=== PATIENT | female | born 1990 | race Caucasian/White ===

== ENCOUNTER 2023-10-29 16:11 | Emergency (ER) | payer OTHER, SELFPAY ==
[2023-10-29 16:30] VITALS: BP 122/80; PULSE 96; RESP 20; TEMP 37.1; O2SAT 97; BMI 41.2
--- NOTE | 2023-10-29 16:40 | ED.URI1 ---
HPI - URI/Sore Throat General Chief Complaint: Upper Respiratory Infection Stated Complaint: FLU Time Seen by Provider: 10/29/23 16:29 Source: patient History of Present Illness HPI Narrative: 33-year-old female presents for cough and congestion. Her symptoms started ninety minutes ago. She states that several people where she works have Covid. She vomited. She's had no productive cough or fever. Related Data Home Medications Medication Instructions Recorded Confirmed buspirone 10 mg tablet 10 mg PO BID 10/29/23 10/29/23 fluoxetine 40 mg capsule 40 mg PO DAILY 10/29/23 10/29/23 lisinopril 20 mg tablet 20 mg PO DAILY 10/29/23 10/29/23 meloxicam 15 mg tablet 15 mg PO DAILY 10/29/23 10/29/23 paliperidone palmitate 234 mg/1.5 234 mg IM .monthly 10/29/23 10/29/23 mL intramuscular syringe (Invega Sustenna) propranolol 60 mg capsule,24 60 mg PO DAILY 10/29/23 10/29/23 hr,extended release Allergies Allergy/AdvReac Type Severity Reaction Status Date / Time hydroxyzine AdvReac Drowsy Verified 10/29/23 16:27 Review of Systems ROS Narrative A ten point review of systems is negative except as noted above. Exam Narrative Exam Narrative: Nurses note and vital signs reviewed and patient is not hypoxic. General: The patient appears well and in no apparent distress. Patient is resting comfortably on cart. Skin: Warm, dry, no pallor noted. There is no rash noted. Head: Normocephalic, atraumatic Eye: Normal conjunctiva, no drainage Ears, Nose, Mouth, and Throat: oral mucosa is moist. Nares patent. Cardiovascular: Regular Rate and Rhythm Respiratory: Patient is in no distress, no accessory muscle use, lungs are clear to auscultation, no wheezing, rales or rhonchi Back: non-tender GI: off and nontender Musculoskeletal: no joint swelling Neurological: A&O, normal speech Psychiatric: Cooperative Constitutional Vital Signs, click to edit/add: Last Vital Signs Temp 98.7 F 10/29/23 16:30 Pulse 96 H 10/29/23 16:30 Resp 20 10/29/23 16:30 BP 122/80 10/29/23 16:30 Pulse Ox 97 10/29/23 16:30 O2 Del Method Room Air 10/29/23 16:30 Course Vital Signs Vital signs: Vital Signs Temperature 98.7 F 10/29/23 16:30 Pulse Rate 96 H 10/29/23 16:30 Respiratory Rate 20 10/29/23 16:30 Blood Pressure 122/80 10/29/23 16:30 Pulse Oximetry 97 10/29/23 16:30 Oxygen Delivery Method Room Air 10/29/23 16:30 Temperature 98.7 F 10/29/23 16:30 Pulse Rate 96 H 10/29/23 16:30 Respiratory Rate 20 10/29/23 16:30 Blood Pressure 122/80 10/29/23 16:30 Pulse Oximetry 97 10/29/23 16:30 Oxygen Delivery Method Room Air 10/29/23 16:30 MDM - URI/Sore Throat MDM Narrative Medical decision making narrative: Covid and influenza are negative. treatment diagnosis and follow-up were discussed with the patient. Differential Diagnosis Differential diagnosis: Likely upper respiratory infection and other (Covid, influenza) Lab Data Attestation: I reviewed the patient's lab results. Labs: Lab Results 10/29/23 Range/Units 16:32 SARS-CoV-2 (PCR) Negative (NEGATIVE) Influenza Type A Ag Negative Influenza Type B Ag Negative Discharge Plan Discharge Chief Complaint: Upper Respiratory Infection Clinical Impression: Upper respiratory infection Patient Disposition: Home, Self-Care Time of Disposition Decision: 17:25 Condition: Good Mode of Transportation: Private Vehicle Prescriptions / Home Meds: No Action buspirone 10 mg tablet 10 mg PO BID fluoxetine 40 mg capsule 40 mg PO DAILY lisinopril 20 mg tablet 20 mg PO DAILY meloxicam 15 mg tablet 15 mg PO DAILY Invega Sustenna 234 mg/1.5 mL syringe 234 mg IM .monthly propranolol 60 mg capsule,extended release 24 hr 60 mg PO DAILY Instructions: Upper Respiratory Infection (ED) Stand Alone Forms: Portal Instructions Referrals: MONIKA MALONE [Primary Care Provider] - 1 week
[2023-10-29] MEDS: ONDANSETRON 4 MG RAPDIS TABLET SL (16:54)
[2023-10-29 17:12] LABS: Influenza Virus A Antigen Negative; Influenza Virus B Antigen Negative; Internal Control Within Normal Limits; SARS-CoV-2 Ag NEGATIVE (NEGATIVE)
[2023-10-30 15:45] LABS: SARS-CoV-2 NAA NOT DETECTED (NOT DETECTE)
== END 2023-10-29 17:39 | disposition home or self-care (01) ==
PROVIDERS: Emergency Provider Emergency Medicine; PCP Family Medicine
DX: J06.9 Acute upper respiratory infection, unspecified (principal); Z20.822 Contact with and (suspected) exposure to COVID-19
CPT/HCPCS: 87635; 87804; 87811; 99284

== ENCOUNTER 2025-06-12 06:42 | Emergency (ER) | payer OTHER, SELFPAY ==
[2025-06-12 06:47] VITALS: BP 135/85; PULSE 63; TEMP 36.7; O2SAT 99; BMI 43.3
--- OUTSIDE RECORDS SUMMARY | 2025-06-12 06:57 | XMS_ITS | CCD ---
Author Organization [facility] Care Team Providers Care Preschool Substitute Teacher Name Role Phone Mare Rosales Unavailable HOUSE, DR FRANK Attending Unavailable HOUSE, DR FRANK Consulting Unavailable HOUSE, DR FRANK Primary Care Unavailable HOUSE, DR FRANK Admitting Unavailable DEB SOLER Referring Unavailable MOUSTAPHA MALONE Primary Care Unavailable JULIANNA OSEGUERA Attending Unavailable DEB SOLER Referring Unavailable MOUSTAPHA MALONE Primary Care Unavailable DO Moustapha Malone Primary Care Provider MD Jaxon Mercado Attending Provider [phone] NO FAMILY, PHYSICIAN Primary Care Provider Unava ilable MD Lucas Nuñez Admit Provider MD Lucas Nuñez Attending Provider [phone] [place] Moustapha THURSTON Primary Care Provider No Pcp, No Pcp Primary Care Provider Unavailabl e Moustapha Malone DO Primary Care Provider NO FAMILY, PHYSICIAN Primary Care Unavailable Lucas Nuñez Attending Unavailable Lucas Nuñez Admitting Unavailable Moustapha Malone Primary Care Unavailable Jaxon Mercado Attending Unavailab le Jaxon Mercado Admitting Unavailab le Moustapha Malone DO Primary Care Provider DEB SOLER Attending Unavailable MOUSTAPHA MALONE Referring Unavailable MOUSTAPHA MALONE Primary Care Unavailable RANDA BISHOP Attending Unavailable MOUSTAPHA MALONE Referring Unavailable MOUSTAPHA MALONE Primary Care Unavailable DEB SOLER Attending Unavailable NO PCP, NO PCP Primary Care Unavailable DEB SOLER Attending Unavailable NO PCP, NO PCP Primary Care Unavailable DEB SOLER Attending Unavailable HOUSE, MOUSTAPHA P Referring Unavailable NO PCP, NO PCP Primary Care Unavailable KARLENE, DEB L Attending Unavailable HOUSE, MOUSTAPHA P Referring Unavailable HOUSE, MOUSTAPHA P Primary Care Unavailable KARLENE, DEB L Attending Unavailable HOUSE, MOUSTAPHA P Referring Unavailable HOUSE, MOUSTAPHA P Primary Care Unavailable KARLENE, DEB L Attending Unavailable HOUSE, MOUSTAPHA P Primary Care Unavailable Rupal Mayo MD Primary Care Provider Narda MAJOR GIFTS OFFICER, John Unavailable NO PCP, NO PCP Primary Care Unavailable RANI, RICH Wright Attending Unavailab NANCY Easley Admitting Unavailable NEVERANTONIOKAAdrien, RICH P Attending Unavailab le NEVERAUSKAS, RICH P Referring Unavailab le NO PCP, NO PCP Primary Care Unavailable HOUSE, MOUSTAPHA P Referring Unavailable NO PCP, NO PCP Primary Care Unavailable HOUSE, MOUSTAPHA P Primary Care Unavailable AZIZA MEJIA Attending Unavailable HOUSE, MOUSTAPHA P Primary Care Unavailable CARRIE LINDSEY Attending Unavailable HOUSE, DO MOUSTAPHA P Attending Unavailable HOUSE, MOUSTAPHA P Primary Care Unavailable HOUSE, DO MOUSTAPHA P Attending Unavailable HOUSE, MOUSTAPHA P Primary Care Unavailable Nicola PMHNP-, Leah Unavailable LEAH RICKETTS Attending Unavailable MAJORS, JOHN Attending Unavailable LEAH RICKETTS Attending Unavailable MAJORS, JOHN Referring Unavailable MAJORS, JOHN Attending Unavailable Allergies Allergy Classification Reported Allergen(s) Allergy Type Date of Onset Reaction(s) Facility (18 sources) Latex; Translations: [LATEX] Propensity to adverse reactions 0 rash/swelling, Rash, rash/swelling [facility] Repository (1 source) Latex Drug allergy (disorder) 4 [facility] Repository (20 sources) hydrOXYzine; Translations: [HYDROXYZINE] Drug Allergy 0 Drowsy [facility] Repository (1 source) Latex Drug allergy (disorder) 4 [facility] Repository (11 sources) Latex Propensity to adverse reactions 0 [facility] (1 source) Latex; Translations: [Latex Allergy] Propensity to adverse reactions (disorder) [facility] Repository Medications Current Medications Medication Drug Class(es) Dates Sig (Normalized) Sig (Original) busPIRone hydrochloride 15 mg oral tablet (20 sources) Start: 08-11-2021 End: 04-27-2025 take 15 mg by mouth three times daily Buspirone Active 15 MG PO Three times daily 42 14 August 11, 2021 12:00am Start: 08-08-2021 End: 08-11-2021 take 15 mg by mouth twice daily Buspirone Discontinued 15 MG PO Twice daily August 08, 2021 8:01pm August 11, 2021 1:52pm Start: 05-14-2021 End: 08-08-2021 take 10 mg by mouth twice daily Buspirone Discontinued 10 MG PO Twice daily 60 May 14, 2021 12:00am August 08, 2021 8:01pm Start: 05-11-2021 End: 05-14-2021 take 10 mg by mouth once daily Buspirone Discontinued 10 MG PO Daily May 11, 2021 12:00am May 14, 2021 11:11am Start: 07-06-2020 End: 05-11-2021 take 5 mg by mouth three times daily Buspirone Discontinued 5 MG PO Three times daily 90 July 06, 2020 12:00am May 11, 2021 8:19am busPIRone HCl Ac tive cariprazine 3 mg oral capsule (2 sources) Atypical Antipsychotic Start: 08-15-2024 take 1 capsule by mouth once daily Cariprazine (Vraylar) 3 mg capsule Active 3 MG PO Daily August 15, 2024 12:00am Start: 08-11-2024 End: 08-15-2024 take 1 capsule by mouth once daily Cariprazine (Vraylar) 1.5 mg capsule Discontinued 1.5 MG PO Daily August 11, 2024 12:00am August 15, 2024 12:02pm doxepin hydrochloride 25 mg oral capsule (8 sources) Tricyclic Antidepressant Start: 08-15-2024 take 25 mg by mouth once daily at bedtime Doxepin Active 25 MG PO Daily at bedtime August 15, 2024 12:00am Start: 08-11-2024 take 10 mg by mouth three times daily Doxepin Active 10 MG PO Three times daily August 11, 2024 12:00am Start: 07-02-2020 End: 05-11-2021 take 10 mg by mouth three times daily Doxepin Discontinued 10 MG PO Three times daily July 02, 2020 12:00am May 11, 2021 8:20am escitalopram 10 mg oral tablet (3 sources) Serotonin Reuptake Inhibitor Start: 05-25-2025 End: 06-24-2025 take 1 tablet by mouth once daily escitalopram (Lexapro) 10 MG tablet Indications: ZAFAR (generalized anxiety disorder) , PTSD (post-traumatic stress disorder) , Mild episode of recurrent major depressive disorder Take 1 tablet (10 mg) by mouth Daily 30 tablet 1 05/25/2025 06/24/2025 Active fexofenadine hydrochloride 180 mg oral tablet (8 sources) Histamine-1 Receptor Antagonist take 1 tablet by mouth once daily fexofenadine (Nancy) 180 MG tablet Take 180 mg by mouth Daily Active FLUoxetine 40 mg oral capsule (20 sources) Serotonin Reuptake Inhibitor Start: 05-07-2024 End: 04-27-2025 take 1 capsule by mouth in the morning FLUoxetine (PROzac) 40 MG capsule Take 40 mg by mouth in the morning and 40 mg in the evening. 05/07/2024 04/27/2025 Discontinued Start: 05-14-2021 take 80 mg by mouth once daily Fluoxetine Active 80 MG PO Daily 60 May 14, 2021 12:00am Start: 07-06-2020 End: 05-14-2021 take 60 mg by mouth once daily Fluoxetine Discontinued 60 MG PO Daily 90 July 06, 2020 12:00am May 14, 2021 11:11am Start: 07-02-2020 End: 07-06-2020 take 40 mg by mouth once daily Fluoxetine Discontinued 40 MG PO Daily July 02, 2020 12:00am July 06, 2020 12:07pm PROzac Active fluticasone propionate 0.05 mg/actuat metered dose nasal spray (2 sources) Corticosteroid Start: 06-24-2022 take 1 spray(s) nasal route once daily Flonase Allergy Relief 50 MCG/ACT 1 spray in each nostril Nasally Once a day for 14 day(s) Jun, Active Flonase Active meloxicam 15 mg oral tablet (20 sources) Nonsteroidal Anti-inflammatory Drug Start: 05-07-2024 End: 04-27-2025 meloxicam (Mobic) 15 MG tablet 05/07/2024 04/27/2025 Discontinued (Therapy completed) Start: 07-02-2020 End: 05-11-2021 take 15 mg by mouth once daily Meloxicam Active 15 MG PO Daily May 11, 2021 12:00am Mobic Active multivit with calcium,iron,m in (MULTIPLE VITAMIN, WOMENS ORAL) (12 sources) multivit with ca lcium,iron,min (MULTIPLE VITAMIN, WOMENS ORAL) Take by mouth. Active multivit with ca lcium,iron,min (MULTIPLE VITAMIN, WOMENS ORAL) Take by mouth. 0 Active OLANZapine 5 mg oral tablet (1 source) Atypical Antipsychotic Start: 08-15-2024 take 5 mg by mouth every six hours Olanzapine Active 5 MG PO Q6H 30 August 15, 2024 12:00am ondansetron 4 mg oral tablet (1 source) Serotonin-3 Receptor Antagonist Start: 06-24-2022 take 1 tablet by mouth every eight hours as needed Ondansetron HCl 4 MG 1 tablet Orally every 8 hours as needed for 3 days Jun, Active 1.5 ml paliperidone palmitate 156 mg/ml prefilled syringe (12 sources) Atypical Antipsychotic Start: 08-15-2024 Paliperidone Palmitate (Invega Sustenna) 234 mg/1.5 mL Syringe Active 234 MG IM Q21D 0 August 15, 2024 12:00am Start: 08-12-2024 End: 08-15-2024 Paliperidone Palmitate (Inve ga Sustenna) 234 mg/1.5 mL syringe Discontinued 234 MG IM Q30D August 12, 2024 12:00am August 15, 2024 12:02pm Start: 08-11-2024 End: 08-12-2024 Paliperidone Palm (3 Month) (Invega Trinza) 273 mg/0.88 mL syringe Discontinued 273 MG IM EVERY 3 MONTHS August 11, 2024 12:00am August 12, 2024 12:21pm Start: 03-10-2024 inject 2.63 mL by in tramuscular injection every three months INVEGA TRINZA 819 mg/2.63 mL syringe injection INJECT 2.63 mls INTRAMUSCULARLY once EVERY 3 (THREE) months 03/10/2024 Active Start: 08-15-2021 End: 03-03-2024 inject 1.5 mL by intramuscular injection every month INVEGA SUSTENNA 234 mg/1.5 mL syringe INJECT 1.5 ml INTRAMUSCULARLY once a month 08/15/2021 03/03/2024 Discontinued Start: 08-08-2021 End: 08-11-2024 Paliperidone Palmitate (Toñobenji mejía Augustine) 39 mg/0.25 mL Syringe Discontinued 234 MG IM EVERY 4 WEEKS August 08, 2021 12:00am August 11, 2024 6:29pm Start: 05-14-2021 End: 08-08-2021 take 3 mg by mouth once daily at bedtime Paliperidone Discontinued 3 MG PO Daily at bedtime May 14, 2021 12:00am August 08, 2021 9:10pm 24 hr propranolol hydrochloride 80 mg extended release oral capsule (20 sources) beta-Adrenergic Frantz Start: 05-05-2025 End: 08-03-2025 take 1 capsule by mouth once daily propranolol LA (Inderal LA) 80 MG 24 hr capsule Indications: Other migraine without status migrainosus, not intractable Take 1 capsule (80 mg) by mouth Daily Do not crush, chew, or split. 30 capsule 2 05/05/2025 08/03/2025 Active Start: 04-07-2025 End: 04-07-2026 take 1 capsule by mouth once daily propranolol LA (Inderal LA) 60 MG 24 hr capsule Indications: Other migraine without status migrainosus, not intractable Take 1 capsule (60 mg) by mouth Daily Do not crush, chew, or split. 90 capsule 3 04/07/2025 05/05/2025 Discontinued (Dose adjustment) Start: 05-07-2024 End: 04-07-2025 propranolol LA (Inderal LA) 60 MG 24 hr capsule 05/07/2024 04/07/2025 Discontinued (Reorder) Start: 07-02-2020 take 1 capsule by mo uth once daily propranolol LA (INDERAL LA) 60 mg 24 hr capsule TAKE 1 CAPSULE BY MOUTH DAILY 05/07/2024 Active take 1 tablet by bruna th in the morning propranoloL (INDERAL) 60 mg tablet Take 1 tablet (60 mg total) by mouth in the morning. Active Inderal Active sertraline 25 mg oral tablet (7 sources) Serotonin Reuptake Inhibitor Start: 04-27-2025 End: 05-25-2025 take 1 tablet by mouth once daily, then take 2 tablets by mouth once daily sertraline (Zoloft) 25 MG tablet Indications: ZAFAR (generalized anxiety disorder) Take 1 tablet (25 mg) by mouth Daily for 7 days, THEN 2 tablets (50 mg) Daily for 21 days. 49 tablet 04/27/2025 05/25/2025 Discontinued traZODone hydrochloride 50 mg oral tablet (3 sources) Serotonin Reuptake Inhibitor Start: 08-15-2024 take 50 mg by mouth once daily at bedtime Trazodone Active 50 MG PO Daily at bedtime August 15, 2024 12:00am Start: 05-14-2021 End: 08-08-2021 take 50 mg by mouth once daily at bedtime Trazodone Discontinued 50 MG PO Daily at bedtime May 14, 2021 12:00am August 08, 2021 2:48pm Start: 07-02-2020 End: 05-11-2021 take 100 mg by mouth at bedtime Trazodone Discontinued 100 MG PO Bedtime July 02, 2020 12:00am May 11, 2021 8:22am triamcinolone acetonide 1 mg/ml topical cream (2 sources) Corticosteroid Start: 05-05-2025 End: 05-12-2025 triamcinolone (Kenalog) 0.1 % cream Indications: Dermatitis Apply topically in the morning and before bedtime. Do all this for 7 days. 45 g 05/05/2025 05/12/2025 Active Completed/Discontinued Medications Medication Drug Class(es) Dates Sig (Normalized) Sig (Original) ARIPiprazole 5 mg oral tablet (1 source) Atypical Antipsychotic Start: 07-02-2020 End: 05-11-2021 take 5 mg by mouth at bedtime Aripiprazole Discontinued 5 MG PO Bedtime July 02, 2020 12:00am May 11, 2021 8:18am brexpiprazole 0.5 mg oral tablet (3 sources) Atypical Antipsychotic End: 03-03-2024 take 1 tablet by mouth in the morning brexpiprazole (REXULTI) 0.5 mg tablet Take 1 tablet (0.5 mg total) by mouth in the morning. 03/03/2024 Discontinued Rexulti Active buPROPion hydrochloride 100 mg oral tablet (3 sources) Aminoketone End: 03-03-2024 take 1 tablet by mouth in the morning buPROPion (WELLBUTRIN) 100 mg tablet Take 1 tablet (100 mg total) by mouth in the morning. 03/03/2024 Discontinued buPROPion HCl Ac tive etonogestrel 68 mg drug implant (9 sources) Progestin Start: 03-25-2024 End: 03-25-2024 etonogestreL (NEXPLANON) implant 68 mg Start: 03-25-2024 End: 03-25-2024 68 mg, subdermal, Once, On T ue 03/25/24 at 1530, For 1 dose, HAZARDOUS - Handle with care, Has patient consent been obtained? Yes, Indication: Prevention of Unintended etonogestreL (NE XPLANON) 68 mg implant 1 each (68 mg total) by subdermal route once. Active lamoTRIgine 25 mg oral tablet (1 source) Mood Stabilizer, Anti-epileptic Agent Start: 05-11-2021 End: 05-14-2021 take 37.5 mg by mouth once daily Lamotrigine Discontinued 37.5 MG PO Daily May 11, 2021 12:00am May 14, 2021 11:11am lisinopril 20 mg oral tablet (1 source) Angiotensin Converting Enzyme Inhibitor Start: 05-11-2021 End: 08-08-2021 take 20 mg by mouth once daily Lisinopril Discontinued 20 MG PO Daily May 11, 2021 12:00am August 08, 2021 2:47pm 1 ml medroxyPROGESTERone acetate 150 mg/ml injection (8 sources) Progestin Start: 01-09-2024 End: 01-09-2024 medroxyPROGESTERone (DEPO-PROVERA) injection 150 mg Start: 01-09-2024 End: 01-09-2024 medroxyPROGESTERone (DEPO-UT OVERA) injection 150 mg End: 04-15-2024 medroxyPROGESTERone (DEPO-UT OVERA) 150 mg/mL injection Inject 1 mL (150 mg total) into the appropriate muscle every 3 (three) months. 04/15/2024 Discontinued prazosin 1 mg oral capsule (1 source) alpha-Adrenergic Frantz Start: 07-06-2020 End: 05-11-2021 take 1 mg by mouth once daily at bedtime Prazosin Discontinued 1 MG PO Daily at bedtime July 06, 2020 12:00am May 11, 2021 8:24am QUEtiapine 25 mg oral tablet (3 sources) Atypical Antipsychotic Start: 08-11-2021 End: 08-11-2024 take 75 mg by mouth once daily at bedtime Quetiapine Discontinued 75 MG PO Daily at bedtime 45 August 11, 2021 12:00am August 11, 2024 6:28pm Start: 08-08-2021 End: 08-11-2024 take 25 mg by mouth once daily in the morning Quetiapine Discontinued 25 MG PO Every morning August 08, 2021 12:00am August 11, 2024 6:28pm Start: 08-08-2021 End: 08-11-2021 take 50 mg by mouth once daily at bedtime Quetiapine Discontinued 50 MG PO Daily at bedtime August 08, 2021 12:00am August 11, 2021 10:15am sulfamethoxazole 800 mg / trimethoprim 160 mg oral tablet (1 source) Dihydrofolate Reductase Inhibitor Antibacterial, Sulfonamide Antimicrobial Start: 05-14-2021 End: 08-08-2021 take 1 tablet by mouth twice daily Sulfamethoxazole-Trimethoprim Discontinued 1 TAB PO Twice daily 12 May 14, 2021 12:00am August 08, 2021 2:47pm Problems Active Problems Problem Classification Problem Date Documented Date Episodic/Chronic Administrative/socia l admission (2 sources) First encounter by subject; Translations: [Persons encountering health services in other specified circumstances] 04-07-2025 Episodic Allergic reactions (2 sources) Inflammatory dermatosis; Translations: [Dermatitis, unspecified] 05-05-2025 Episodic Anxiety disorders (20 sources) Anxiety; Translations: [Anxiety disorder, unspecified] Onset: 04-27-2025 05-03-2024 Chronic Contraceptive and procreative management (12 sources) Patient encounter status; Translations: [Encounter for initial prescription of implantable subdermal contraceptive] Onset: 03-25-2024 03-25-2024 Episodic Essential hypertension (4 sources) Essential (primary) hypertension; Translations: [ESSENTIAL PRIMARY HYPERTENSION] Onset: 07-03-2022 Chronic Genitourinary symptoms and ill-defined conditions (1 source) Urinary frequency Onset: 04-04-2025 Episodic Headache; including migraine (16 sources) Migraine; Translations: [Migraine, unspecified, not intractable, without status migrainosus] Onset: 01-09-2024 01-09-2024 Chronic Immunizations and screening for infectious disease (2 sources) Encounter for screening for infections with a predominantly sexual mode of transmission; Translations: [Patient encounter status] Onset: 03-03-2024 03-03-2024 Episodic Mood disorders (20 sources) Major depressive disorder; Translations: [Major depressive disorder, single episode, unspecified] Onset: 08-11-2024 08-08-2021 Chronic Nutritional deficiencies (4 sources) Vitamin D deficiency; Translations: [Vitamin D deficiency, unspecified] 04-07-2025 Chronic Osteoarthritis (2 sources) Bilateral osteoarthritis of knees; Translations: [Bilateral primary osteoarthritis of knee] 04-07-2025 Chronic Other connective tissue disease (1 source) Myalgia, other site; Translations: [Myalgia, other site] Onset: 04-04-2025 Episodic Other nutritional; endocrine; and metabolic disorders (2 sources) Body mass index (BMI) 40.0-44.9, adult; Translations: [Body mass index (BMI) 40.0-44.9, adult] Onset: 04-01-2024 Chronic Other nutritional; endocrine; and metabolic disorders (20 sources) Body mass index 40+ - severely obese; Translations: [Body mass index (BMI) 40.0-44.9, adult] Onset: 09-27-2022 03-03-2024 Chronic Other nutritional; endocrine; and metabolic disorders (9 sources) Severe obesity; Translations: [Morbid (severe) obesity due to excess calories] Onset: 05-19-2024 04-21-2024 Chronic Other nutritional; endocrine; and metabolic disorders (1 source) Morbid (severe) obesity due to excess calories; Translations: [Morbid (severe) obesity due to excess calories] Onset: 05-19-2024 Chronic Other nutritional; endocrine; and metabolic disorders (1 source) Body mass index (BMI) 45.0-49.9, adult; Translations: [Body mass index (BMI) 45.0-49.9, adult] Onset: 05-19-2024 Chronic Other nutritional; endocrine; and metabolic disorders (4 sources) Obesity caused by energy imbalance; Translations: [Morbid (severe) obesity due to excess calories] 04-07-2025 Chronic Otitis media and related conditions (2 sources) Otitis media; Translations: [Unspecified nonsuppurative otitis media, bilateral] 04-07-2025 Episodic Personality disorders (12 sources) Borderline personality disorder; Translations: [Borderline personality disorder] Onset: 09-07-2021 09-07-2021 Chronic Schizophrenia and other psychotic disorders (3 sources) Schizoaffective disorder; Translations: [Schizoaffective disorder, unspecified] Onset: 08-11-2024 08-09-2021 Chronic Screening and history of mental health and substance abuse codes (13 sources) Standardized adult depression screening tool completed ; Translations: [Encounter for screening for depression] Onset: 04-27-2025 01-09-2024 Episodic Suicide and intentional self-inflicted injury (1 source) Suicidal thoughts; Translations: [Suicidal ideations] 08-08-2021 Episodic Unclassified (1 source) Unclassified (1 source) MNT - Individual Onset: 04-01-2024 Unclassified (1 source) Procedure Onset: 03-17-2025 Unclassified (1 source) Suicidal Onset: 08-11-2024 Unclassified (1 source) Supraventricular tachycardia, unspecified; Translations: [Supraventricular tachycardia, unspecified] Onset: 05-10-2024 Unclassified (1 source) Generalized Body Aches Onset: 05-02-2024 Unclassified (1 source) Body Aches Onset: 05-02-2024 Past or Other Problems Problem Classification Problem Date Documented Da te Episodic/Chronic Cardiac dysrhythmias (6 sources) Tachycardia; Translations: [Tachycardia, unspecified] Onset: 05-02-2024 05-03-2024 Episodic Malaise and fatigue (1 source) Fatigue Onset: 05-02-2024 Episodic Mood disorders (20 sources) Mood disorders Onset: 01-09-2024 Resolved: 04-27-2025 01-09-2024 Nausea and vomiting (1 source) Nausea Onset: 05-02-2024 Episodic Other nutritional; endocrine; and metabolic disorders (2 sources) Weight loss Onset: 03-24-2024 Episodic Unclassified (1 source) Contact with and (suspected) exposure to covid-19 Z20.822 Onset: 06-24-2022 Resolved: 06-24-2022 Unclassified (12 sources) Onset: 01-09-2024 01-09-2024 Urinary tract infections (6 sources) Pyelonephritis; Translations: [Tubulo-interstit ial nephritis, not specified as acute or chronic] Onset: 05-02-2024 05-02-2024 Episodic Viral infection (1 source) COVID-19 Onset: 06-24-2022 Resolved: 06-24-2022 Results Test Name Value Interpretation Reference Range Facility Release of Informationon Release of Information [id number]. 00OTGTIFF [facility] Outside Recordson 04-08-2025 Outside Records [id number] [facility] WITH [facility]O DIFFERENTIALon 04-04-2025 BASOPHILS ABSOLUTE COUNT (10*3/UL) BY AUTOMATED COUNT 0.1 10*3/uL Normal 0.0-0.2 [facility] Comment on above: Performed By: #### 1 988-5, 2639-3, 6, CBCA, CMP, 23083-4 #### [facility] ([id number]) [address] [place] [address] 64336 BASOPHILS RELATIVE PERCENT BY AUTOMATED COUNT 0.8 % Normal [facility] Comment on above: Performed By: #### 1 988-5, 2639-3, 2157-04, CBCA, CMP, 59638-4 #### [facility] ([id number]) [address] [place] [address] 74397 CELLAVISION DIFFERENTIAL TYPE AUTOMATED DIFFERENTIAL Normal [facility] Comment on above: Performed By: #### 1 988-5, 2639-3, 6, CBCA, CMP, 90531-9 #### [facility] ([id number]) [address] [place] [address] 24388 Eosinophils (Bld) [#/Vol] 0.5 10*3/uL High 0.0-0.4 [facility] Comment on above: Performed By: #### 1 988-5, 2639-3, 2157-6, CBCA, CMP, 13986-3 #### [facility] ([id number]) [address] [place] [address] 11815 EOSINOPHILS RELATIVE PERCENT BY AUTOMATED COUNT 5.0 % Normal [facility] Comment on above: Performed By: #### 1 988-5, 2639-3, 6, CBCA, CMP, 73556-6 #### [facility] ([id number]) [address] [place] [address] 01227 Erythrocyte distribution width (RBC) [Ratio] 13.1 % Normal 11.5-15 [facility] Comment on above: Performed By: #### 1 988-5, 263-3, 2157-04, CBCA, CMP, 99243-4 #### [facility] ([id number]) [address] [place], [place] [id number] Hematocrit (Bld) [Volume fraction] 38.0 % Normal 35-47 [facility] Comment on above: Performed By: #### 1 988-5, 2639-3, 2157-04, CBCA, CMP, 72064-4 #### [facility] ([id number]) [address] [place], [place] [address] Hemoglobin (Bld) [Mass/Vol] 13.3 g/dL Normal 11.7-15.5 [facility] Comment on above: Performed By: #### 1 988-5, 2639-3, 6, CBCA, CMP, 15223-1 #### [facility] ([id number]) [address] [place] [address] 15240 LYMPHOCYTES ABSOLUTE COUNT (10*3/UL) BY AUTOMATED COUNT 2.4 10*3/uL Normal 1.0-3.5 [facility] Comment on above: Performed By: #### 1 988-5, 2639-3, 6, CBCA, CMP, 13802-0 #### [facility] ([id number]) [address] [place] [address] 58982 LYMPHOCYTES RELATIVE PERCENT BY AUTOMATED COUNT 23.8 % Normal [facility] Comment on above: Performed By: #### 1 988-5, 2639-3, 6, CBCA, CMP, 28654-8 #### [facility] ([id number]) [address] [place] [address] 30199 MCH (RBC) [Entitic mass] 31.9 pg Normal 27-34 [facility] Comment on above: Performed By: #### 1 988-5, 2639-3, 2157-04, CBCA, CMP, 87394-3 #### [facility] ([id number]) [address] [place] [address] 12252 MCHC (RBC) [Mass/Vol] 34.9 g/dL Normal 32-36 [facility] Comment on above: Performed By: #### 1 988-5, 2639-3, 2157-04, CBCA, CMP, 43415-1 #### [facility] ([id number]) [address] [place] [address] 33580 MCV (RBC) [Entitic vol] 92 fL Normal 80-100 [facility] Comment on above: Performed By: #### 1 988-5, 2639-3, 2157-04, CBCA, CMP, 84892-0 #### [facility] ([id number]) [address] [place] [address] 82547 MONOCYTES ABSOLUTE COUNT (10*3/UL) BY AUTOMATED COUNT 0.7 10*3/uL Normal 0.0-0.9 [facility] Comment on above: Performed By: #### 1 988-5, 2639-3, 6, CBCA, CMP, 36172-2 #### [facility] ([id number]) [address] [place] [address] 17445 MONOCYTES RELATIVE PERCENT BY AUTOMATED COUNT 7.0 % Normal [facility] Comment on above: Performed By: #### 1 988-5, 2639-3, 6, CBCA, CMP, 40669-6 #### [facility] ([id number]) [address] [place] [address] 67506 NEUTROPHILS ABSOLUTE COUNT BY AUTOMATED COUNT 6.3 10*3/uL Normal 1.5-6.6 [facility] Comment on above: Performed By: #### 1 988-5, 2639-3, 6, CBCA, CMP, 23956-6 #### [facility] ([id number]) [address] [place] [address] 43028 NEUTROPHILS RELATIVE PERCENT BY AUTOMATED COUNT 63.4 % Normal [facility] Comment on above: Performed By: #### 1 988-5, 2639-3, 6, CBCA, CMP, 17828-9 #### [facility] ([id number]) [address] [place] [address] 53701 Platelet mean volume (Bld) [Entitic vol] 6.8 fL Low 7-12 [facility] Comment on above: Performed By: #### 1 988-5, 2639-3, 6, CBCA, CMP, 11508-0 #### [facility] ([id number]) [address] [place] [address] 65960 Platelets (Bld) [#/Vol] 375 10*3/uL Normal 150-450 [facility] Comment on above: Performed By: #### 1 988-5, 2639-3, 6, CBCA, CMP, 17096-7 #### [facility] ([id number]) [address] [place] [address] 16141 RBC COUNT 4.16 X10E12/L Normal 3.8-5.2 [facility] Comment on above: Performed By: #### 1 988-5, 2639-3, 2156-6, CBCA, CMP, 44342-2 #### [facility] ([id number]) [address] [place] [address] 71790 WBC (Bld) [#/Vol] 10.0 10*3/uL Normal 4-11 [facility] Comment on above: Performed By: #### 1 988-5, 2639-3, 2156-6, CBCA, CMP, 19610-3 #### [facility] ([id number]) [address] [place] [address] 43531 COMPREHENSIVE METABOLIC PANE Efren 04-04-2025 Albumin [Mass/Vol] 3.8 g/dL Normal 3.2-5.3 [facility] Comment on above: Performed By: #### 1 988-5, 2639-3, 2156-6, CBCA, CMP, 66863-8 #### [facility] ([id number]) [address] [place] [address] 30087 ALP [Catalytic activity/Vol] 85 U/L Normal 39-130 [facility] Comment on above: Performed By: #### 1 988-5, 2639-3, 2156-6, CBCA, CMP, 82304-2 #### [facility] ([id number]) [address] [place] [address] 63469 ALT [Catalytic activity/Vol] 42 U/L High <=31 [facility] Comment on above: Performed By: #### 1 988-5, 2639-3, 2156-6, CBCA, CMP, 90932-6 #### [facility] ([id number]) [address] [place] [address] 08883 Anion gap [Moles/Vol] 5 mmol/L Normal 5-15 [facility] Comment on above: Performed By: #### 1 988-5, 2639-3, 2156-6, CBCA, CMP, 59068-9 #### [facility] ([id number]) [address] [place] [address] 37228 AST [Catalytic activity/Vol] 26 U/L Normal <=41 [facility] Comment on above: Performed By: #### 1 988-5, 2639-3, 6, CBCA, CMP, 77339-6 #### [facility] ([id number]) [address] [place] [address] 51846 Bilirubin [Mass/Vol] 0.3 mg/dL Normal 0.3-1.2 [facility] Comment on above: Performed By: #### 1 988-5, 2639-3, 6, CBCA, CMP, 04779-4 #### [facility] ([id number]) [address] [place] [address] 33059 Calcium [Mass/Vol] 8.9 mg/dL Normal 8.5-10.5 [facility] Comment on above: Performed By: #### 1 988-5, 2639-3, 6, CBCA, CMP, 73671-1 #### [facility] ([id number]) [address] [place] [address] 90163 Chloride [Moles/Vol] 106 mmol/L Normal 98-109 [facility] Comment on above: Performed By: #### 1 988-5, 2639-3, 6, CBCA, CMP, 92089-5 #### [facility] ([id number]) [address] [place] [address] 86855 CO2 [Moles/Vol] 24 mmol/L Normal 22-32 [facility] Comment on above: Performed By: #### 1 988-5, 2639-3, 6, CBCA, CMP, 98601-3 #### [facility] ([id number]) [address] [place] [address] 75568 Creatinine [Mass/Vol] 0.88 mg/dL Normal 0.40-1.00 [facility] Comment on above: Result Comment: METH OD TRACEABLE TO IDMS STANDARD Performed By: #### 1 988-5, 2639-3, 6, CBCA, CMP, 76075-5 #### [facility] ([id number]) [address] [place] [address] 46850 GFR/1.73 sq M.predicted among non-blacks MDRD (S/P/Bld) [Vol rate/Area] 88 mL/min/{1.73_m2} Normal >=60 [facility] Comment on above: Result Comment: eGFR not reported due to non-numeric value for Creatinine. Reported eGFR is based on the CKD-EPI 2020 equation that does not use a race coefficient. Performed By: #### 1 988-5, 2638-, 2157-04, CBCA, CMP, 15936-0 #### [facility] ([id number]) [address] [place] [address] 65340 Glucose [Mass/Vol] 106 mg/dL High 65-99 [facility] Comment on above: Performed By: #### 1 988-5, 2639-01, 2157-04, CBCA, CMP, 06546-5 #### [facility] ([id number]) [address] [place] [address] 28954 Potassium [Moles/Vol] 3.6 mmol/L Normal 3.5-5.0 [facility] Comment on above: Performed By: #### 1 988-5, 263-, 2157-04, CBCA, CMP, 75098-5 #### [facility] ([id number]) [address] [place] [address] 59747 Protein [Mass/Vol] 7.2 g/dL Normal 6.0-8.0 [facility] Comment on above: Performed By: #### 1 988-5, 2639-01, 6, CBCA, CMP, 81980-8 #### [facility] ([id number]) [address] [place] [address] Sodium [Moles/Vol] 135 mmol/L Normal 134-146 [facility] Comment on above: Performed By: #### 1 988-5, 2639-3, 2157-6, CBCA, CMP, 99684-6 #### [facility] ([id number]) [address] [place] [address] Urea nitrogen [Mass/Vol] 8 mg/dL Normal 5-23 [facility] Comment on above: Performed By: #### 1 988-5, 2639-3, 2157-6, CBCA, CMP, 26864-6 #### [facility] ([id number]) [address] [place] [address] CT ABDOMEN AND PELVIS WO CON Ton 04-04-2025 CT ABDOMEN AND PELVIS WO CONT CT ABDOMEN AND PELVIS WO CONT CLINICAL INFORMATION: Acute abdominal pain radiating to back, acute lower abdominal pain. TECHNIQUE: Abdominopelvic CT without contrast. All CT scans at this facility use dose modulation, iterative reconstruction, and/or weight based dosing when appropriate to reduce radiation dose to as low as reasonably achievable. COMPARISON: 05/02/2024. FINDINGS Evaluation for pyelonephritis on unenhanced CT, is limited. LOWER CHEST: Lung bases clear. HEPATOBILIARY: Unenhanced liver and gallbladder are unremarkable. No biliary dilation. PANCREAS: Unenhanced pancreas unremarkable. No pancreatic ductal dilation. SPLEEN: The unenhanced spleen is within normal limits. ADRENAL GLANDS: The unenhanced adrenal glands are within normal limits. KIDNEYS, URETERS, AND BLADDER: Unenhanced kidneys are unremarkable. No collecting system dilation. Urinary bladder is unremarkable. Calcifications within the pelvis are most likely pelvic phleboliths. GI TRACT AND PERITONEUM: Small and large bowel are normal in caliber. Normal appendix. No free air. VASCULATURE: Abdominal aorta is nonaneurysmal. LYMPH NODES: Not enlarged. REPRODUCTIVE ORGANS: Uterus present. No abnormal adnexal mass. No significant free pelvic fluid. MSK: Unremarkable. IMPRESSION: * No acute abdominopelvic process, within the limitations of noncontrast technique. Evaluation for pyelonephritis is limited without contrast. Approved by Resident Viet Jean-Baptiste DO on 04/04/2025 9:19 AM IRich have personally reviewed the image(s) and agree with and/or edited the report Finalized by Rich Bond on 04/04/2025 9:29 AM Normal [facility] LIPASEon 04-04-2025 Lipase [Catalytic activity/Vol] 33 U/L Normal 17-40 [facility] Comment on above: Performed By: #### 1 988-5, 2639-3, 2156-6, CBCA, CMP, 50870-2 #### [facility] ([id number]) [address] [place] [address] 66059 POCT NURSING URINE MACROSCOP IC UAon 04-04-2025 BILIRUBIN TEJA Negative Normal Negative [facility] Comment on above: Performed By: #### 1 988-5, 2639-3, 2156-6, CBCA, CMP, 23280-0 #### [facility] ([id number]) [address] [place] [address] 86702 BLOOD/HGB TEJA Negative Normal Negative [facility] Comment on above: Performed By: #### 1 988-5, 2639-3, 6, CBCA, CMP, 15969-8 #### [facility] ([id number]) [address] [place] [address] 27832 GLUCOSE TEJA Negative Normal Negative [facility] Comment on above: Performed By: #### 1 988-5, 2639-3, 2156-6, CBCA, CMP, 04000-9 #### [facility] ([id number]) [address] [place] [address] 39088 KETONES TEJA Negative Normal Negative [facility] Comment on above: Performed By: #### 1 988-5, 2639-3, 2156-6, CBCA, CMP, 45674-5 #### [facility] ([id number]) [address] [place] [address] 21124 LEUKOCYTE ESTERASE TEJA Negative Normal Negative [facility] Comment on above: Performed By: #### 1 988-5, 2639-3, 2156-6, CBCA, CMP, 02074-2 #### [facility] ([id number]) [address] [place] [address] 26626 NITRITE TEJA Negative Normal Negative [facility] Comment on above: Performed By: #### 1 988-5, 2639-3, 2156-6, CBCA, CMP, 34355-9 #### [facility] ([id number]) [address] [place] [address] 05678 PH TEJA 6.0 Normal 5.0, 6.0, 6.5, 7.0, 7.5, 8.0, 8.5, 5.5 [facility] Comment on above: Performed By: #### 1 988-5, 2639-3, 2156-6, CBCA, CMP, 89487-3 #### [facility] ([id number]) [address] [place] [address] 96020 PROTEIN TEJA Negative Normal Negative [facility] Comment on above: Performed By: #### 1 988-5, 2639-3, 2156-6, CBCA, CMP, 09318-4 #### [facility] ([id number]) [address] [place] [address] 18926 SPECIFIC GRAVITY TEJA 1.010 Normal 1.010, 1.015, 1.020, 1.025 [facility] Comment on above: Performed By: #### 1 988-5, 2639-3, 2156-6, CBCA, CMP, 82924-1 #### [facility] ([id number]) [address] [place] [address], [place] [address] UROBILINOGEN TEJA 0.2 E.U./dL Normal [facility] Comment on above: Performed By: #### 1 988-5, 2639-3, 2157-04, CBCA, CMP, 85727-7 #### [facility] ([id number]) [address] [place] [address] POCT , URINE (NUCG) on 04-04-2025 Beta HCG ( test) Ql (U) Negative Normal Negative [facility] Comment on above: Performed By: #### 1 988-5, 2639-3, 2157-04, CBCA, CMP, 78533-9 #### [facility] ([id number]) [address] [place] [address] Cholesterol [Mass/volume] in Serum or PlasmaOrdered By: Lucas Nuñez on 08-12-2024 Cholesterol [Mass/Vol] 195 mg/dL Normal 140-200 [facility] Comment on above: Chol less than 200 m g/dl low riskChol 201-239 mg/dl borderline riskChol 240 mg/dl and greater high risk Result Comment: Chol less than 200 mg/dl low risk Chol 201-239 mg/dl borderline risk Chol 240 mg/dl and greater high risk Performed By: #### T SH3 wRFLX, LIPID, [id number] #### [facility] [address] Cholesterol in LDL Calc [Mas s/Vol]Ordered By: Lucas Nuñez on 08-12-2024 Cholesterol in LDL [Mass/Vol] 130 mg/dL High 0-100 [facility] Comment on above: LDL ATP III CLASSIFI CATIONLDL less than 100 mg/dL OptimalLDL 100-129 mg/dL Near or above optimalLDL 130-159 mg/dL Borderline highLDL 160-189 mg/dL HighLDL greater than 189 mg/dL Very high Cholesterol in VLDL Calc [Ma ss/Vol]Ordered By: Lucas Nuñez on 08-12-2024 Cholesterol in VLDL [Mass/Vol] 28 mg/dL [facility] ECG 12 lead ECGon 08-12-2024 ECG 12 lead ECG [facility] [address] [place] [id number] Electrocardiograph Report Signed Patient: Aleena Mcguire MR#: [id number] 1 : 1990 Acct:[id number] Age/Sex: 34 / F ADM Date: 08/11/24 Loc: Room: [address] [place] [address] Type: ADM IN Attending Dr: Lucas Nuñez MD Ordering Provider: Lucas Nuñez MD Date of Service: 08/12/2412/05/499 ECG/ECG 12 lead ECG: New admit Copies to: Test Reason : Blood Pressure : */* mmHG Vent. Rate : 81 BPM Atrial Rate : 81 BPM P-R Int : 166 ms QRS Dur : 76 ms QT Int : 376 ms P-R-T Axes : 40 57 47 degrees QTcB Int : 436 ms Normal sinus rhythm Normal ECG When compared with ECG of 08-Aug-2021 15:18, No significant change was found Confirmed by Dia Irvin ([id number]) on 08/13/2024 7:50:28 AM Referred By: Electronically Signed By: Dia Irvin Transcribed By: MUS Signed By Dia Irvin DO 4 0750 Normal [facility] Lipid Panelon 08-12-2024 LDL Cholesterol,Calculate d 130 mg/dL High 0-100 [facility] Comment on above: Result Comment: LDL ATP III CLASSIFICATION LDL less than 100 mg/dL Optimal LDL 100-129 mg/dL Near or above optimal LDL 130-159 mg/dL Borderline high LDL 160-189 mg/dL High LDL greater than 189 mg/dL Very high Performed By: #### T SH3 wRFLX, LIPID, [id number] #### [facility] [address] [place] [id number] [facility] Triglyceride w/Reflex 140 mg/dL Normal 0-149 [facility] Comment on above: Result Comment: TRIG ATP III CLASSIFICATION TRIG less than 150 mg/dL Normal TRIG 150-199 mg/dL Borderline high TRIG 200-500 mg/dL High TRIG greater than 500 mg/dL Very high Standard traceable to the Center for Disease Conrtrol and Prevention (CDC) test method. Performed By: #### T SH3 wRFLX, LIPID, [id number] #### [facility] [address] VLDL CHOLESTEROL 28 mg/dL Normal [facility] Comment on above: Performed By: #### T SH3 wRFLX, LIPID, [id number] #### [facility] [address] [place] [address] Serum or plasma high density lipoprotein (HDL) cholesterol measurementOrdered By: Lucas Nuñez on 08-12-2024 Cholesterol in HDL [Mass/Vol] 37 mg/dL Normal 23-92 [facility] Comment on above: HDL CHOL ATP-III CLA SSIFICATION Cardiovascular RiskHDL > or equal to 60 mg/dL LOWHDL < 40 mg/dL HIGH Result Comment: HDL CHOL ATP-III CLASSIFICATION Cardiovascular Risk HDL > or equal to 60 mg/dL LOW HDL < 40 mg/dL HIGH Performed By: #### T SH3 wRFLX, LIPID, [id number] #### [facility] [address] [place] [address] Serum or plasma total choles terol/high density lipoprotein (HDL) cholesterol mass ratOrdered By: Lucas Nuñez on 08-12-2024 Cholesterol.total/Cho lesterol in HDL [Mass ratio] 5.3 {ratio} Normal <5.0 [facility] Comment on above: Performed By: #### T SH3 wRFLX, LIPID, [id number] #### [facility] [address] [place] [address] Thyroid Stim Hormone w/Rflxo n 08-12-2024 Thyroid Stim Hormone w/Rflx 1.93 u[iU]/mL Normal 0.45-5.33 [facility] Comment on above: Performed By: #### T SH3 wRFLX, LIPID, [id number] #### [facility] [address] [place] [address] Thyrotropin [Units/volume] i n Serum or PlasmaOrdered By: Lucas Nuñez on 08-12-2024 TSH Qn 1.93 m[IU]/L 0.45-5.33 [facility] Triglyceride [Mass/volume] i n Serum or PlasmaOrdered By: Lucas Nuñez on 08-12-2024 Triglyceride [Mass/Vol] 140 mg/dL 0-149 [facility] Comment on above: TRIG ATP III CLASSIF ICATIONTRIG less than 150 mg/dL NormalTRIG 150-199 mg/dL Borderline highTRIG 200-500 mg/dL High TRIG greater than 500 mg/dL Very highStandard traceable to the Center for Disease Conrtrol and Prevention (CDC) test method. Vitamin D 25 Hydroxy Totalon 08-12-2024 Vitamin D 25 Hydroxy Total 38.4 ng/mL Normal 30-100 [facility] Comment on above: Result Comment: ALPHONSO MIN D STATUS 25([place])VITAMIN D RANGE (ng/mL) Deficient <20 Insufficient 20 to <30 Sufficient 30 to 100 Reference: Juanita Montano, Vasquez RENTERIA, et al. Evaluation,treatment, and prevention of vitamin D deficiency; an Endocrine Society clinical practice guideline. JCEM. 2010; 96(7):191-. PERFORMED BY: [place] [address] PATHOLOGIST ELECTRONICS DESIGN ENGINEER LESLI ACOSTA M.D. Performed By: #### T SH3 wRFLX, LIPID, [id number] #### [address] Vitamin D+Metabolites [Mass/ volume] in Serum or PlasmaOrdered By: Lucas Nuñez on 08-12-2024 Vitamin D+Metabolites [Mass/Vol] 38.4 ng/mL 30-100 [facility] Comment on above: VITAMIN D STATUS 25( [place])VITAMIN D RANGE (ng/mL) Deficient <20 Insufficient 20 to <30Sufficient 30 to 100Reference: Juanita Montano, Vasquez RENTERIA, et al. Evaluation,treatment, and prevention of vitamin D deficiency; an Endocrine Society clinical practice guideline. JCEM. 2010; 96(7):191-. ACETAMINOPHENon 08-11-2024 Acetaminophen [Mass/Vol] 3.3 ug/mL Low 10.0-30.0 [facility] Comment on above: Result Comment: Refe rence ranges are for therapeutic limits. Performed By: #### 1 988-5, 2639-3, 6, CBCA, CMP, 19296-0 #### [facility] ([id number]) [address] [place] [address] 26059 CBC AND AUTO DIFFon 08-11-20 24 ABSOLUTE BASOPHIL 0.1 X10E9/L Normal 0.0-0.2 [facility] Comment on above: Performed By: #### 1 988-5, 2639-3, 2157-04, CBCA, CMP, 61957-2 #### [facility] ([id number]) [address] [place] [address] 00269 ABSOLUTE NEUTROPHIL 8.0 X10E9/L High 1.5-6.6 [facility] Comment on above: Performed By: #### 1 988-5, 2638-3, 2157-04, CBCA, CMP, 86347-4 #### [facility] ([id number]) [address] [place] [address] 81177 Basophils/100 WBC (Bld) 0.7 % Normal [facility] Comment on above: Performed By: #### 1 988-5, 2638-3, 2157-04, CBCA, CMP, 34310-0 #### [facility] ([id number]) [address] [place] [address] 00253 Eosinophils (Bld) [#/Vol] 0.6 10*3/uL High 0.0-0.4 [facility] Comment on above: Performed By: #### 1 988-5, 2639-3, 2157-04, CBCA, CMP, 20091-6 #### [facility] ([id number]) [address] [place] [address] 18021 Eosinophils/100 WBC (Bld) 4.8 % Normal [facility] Comment on above: Performed By: #### 1 988-5, 2639-3, 2157-6, CBCA, CMP, #### [facility] ([id number]) [address] [place] [address] 70664 Erythrocyte distribution width (RBC) [Ratio] 14.0 % Normal 11.5-15.0 [facility] Comment on above: Performed By: #### 1 988-5, 2639-3, 6, CBCA, CMP, 80656-2 #### [facility] ([id number]) [address] [place] [address] 72052 Hematocrit (Bld) [Volume fraction] 42.9 % Normal 35-47 [facility] Comment on above: Performed By: #### 1 988-5, 2638-3, 2157-04, CBCA, CMP, 77216-0 #### [facility] ([id number]) [address] [place] [address] 62840 Hemoglobin (Bld) [Mass/Vol] 14.5 g/dL Normal 11.7-15.5 [facility] Comment on above: Performed By: #### 1 988-5, 2638-3, 2157-04, CBCA, CMP, 44915-3 #### [facility] ([id number]) [address] [place] [address] 58456 Lymphocytes (Bld) [#/Vol] 2.9 10*3/uL Normal 1.0-3.5 [facility] Comment on above: Performed By: #### 1 988-5, 2639-3, 2157-04, CBCA, CMP, 32656-9 #### [facility] ([id number]) [address] [place] [address] 01884 Lymphocytes/100 WBC (Bld) 23.2 % Normal [facility] Comment on above: Performed By: #### 1 988-5, 2639-3, 6, CBCA, CMP, 87589-1 #### [facility] ([id number]) [address] [place] [address] 52939 MCH (RBC) [Entitic mass] 30.7 pg Normal 27-34 [facility] Comment on above: Performed By: #### 1 988-5, 2639-3, 6, CBCA, CMP, 20419-7 #### [facility] ([id number]) [address] [place] [address] 59145 MCHC (RBC) [Mass/Vol] 33.8 g/dL Normal 32-36 [facility] Comment on above: Performed By: #### 1 988-5, 263-3, 6, CBCA, CMP, 36541-9 #### [facility] ([id number]) [address] [place] [address] 26267 MCV (RBC) [Entitic vol] 91 fL Normal 80-100 [facility] Comment on above: Performed By: #### 1 988-5, 2639-3, 2157-04, CBCA, CMP, 25532-8 #### [facility] ([id number]) [address] [place] [address] 29600 Monocytes (Bld) [#/Vol] 1.0 10*3/uL High 0-0.9 [facility] Comment on above: Performed By: #### 1 988-5, 2639-3, 2157-04, CBCA, CMP, 70653-2 #### [facility] ([id number]) [address] [place] [address] 54462 Monocytes/100 WBC (Bld) 8.0 % Normal [facility] Comment on above: Performed By: #### 1 988-5, 2639-3, 6, CBCA, CMP, 57143-7 #### [facility] ([id number]) [address] [place] [address] 53756 Neutrophils/100 WBC (Bld) 63.3 % Normal [facility] Comment on above: Performed By: #### 1 988-5, 2639-3, 2156-6, CBCA, CMP, 60674-9 #### [facility] ([id number]) [address] [place] [address] 34439 Platelet mean volume (Bld) [Entitic vol] 7.1 fL Normal 7-12 [facility] Comment on above: Performed By: #### 1 988-5, 2639-3, 2156-6, CBCA, CMP, 80137-5 #### [facility] ([id number]) [address] [place] [address] 71602 Platelets (Bld) [#/Vol] 434 10*3/uL Normal 150-450 [facility] Comment on above: Performed By: #### 1 988-5, 2639-3, 6, CBCA, CMP, 33286-6 #### [facility] ([id number]) [address] [place] [address] 18155 RBC COUNT 4.73 X10E12/L Normal 3.80-5.20 [facility] Comment on above: Performed By: #### 1 988-5, 2639-3, 6, CBCA, CMP, 31559-5 #### [facility] ([id number]) [address] [place] [address] 13178 WBC (Bld) [#/Vol] 12.6 10*3/uL High 4.0-11.0 [facility] Comment on above: Performed By: #### 1 988-5, 2639-3, 6, CBCA, CMP, 61703-1 #### [facility] ([id number]) [address] [place] [address] 00971 COMPREHENSIVE METABOLIC PANE Efren 08-11-2024 Albumin [Mass/Vol] 4.1 g/dL Normal 3.2-5.3 [facility] Comment on above: Performed By: #### 1 988-5, 2639-3, 2156-6, CBCA, CMP, 19174-1 #### [facility] ([id number]) [address] [place] [address] 65960 ALP [Catalytic activity/Vol] 89 U/L Normal 39-130 [facility] Comment on above: Performed By: #### 1 988-5, 2639-3, 6, CBCA, CMP, 43053-3 #### [facility] ([id number]) [address] [place] [address] 54898 ALT [Catalytic activity/Vol] 36 U/L High 0-31 [facility] Comment on above: Performed By: #### 1 988-5, 2639-3, 6, CBCA, CMP, 96211-9 #### [facility] ([id number]) [address] [place] [address] 30810 Anion gap [Moles/Vol] 9 mmol/L Normal 5-15 [facility] Comment on above: Performed By: #### 1 988-5, 2639-3, 6, CBCA, CMP, 62594-6 #### [facility] ([id number]) [address] [place] [address] 63465 AST [Catalytic activity/Vol] 21 U/L Normal 0-41 [facility] Comment on above: Performed By: #### 1 988-5, 2639-3, 6, CBCA, CMP, 85317-0 #### [facility] ([id number]) [address] [place] [address] 01292 Bilirubin [Mass/Vol] 0.6 mg/dL Normal 0.3-1.2 [facility] Comment on above: Performed By: #### 1 988-5, 2639-3, 2157-6, CBCA, CMP, 65771-0 #### [facility] ([id number]) [address] [place] [address] 11817 Calcium [Mass/Vol] 9.7 mg/dL Normal 8.5-10.5 [facility] Comment on above: Performed By: #### 1 988-5, 2639-3, 2156-6, CBCA, CMP, 77052-2 #### [facility] ([id number]) [address] [place] [address] 94358 Chloride [Moles/Vol] 105 mmol/L Normal 98-109 [facility] Comment on above: Performed By: #### 1 988-5, 2639-3, 6, CBCA, CMP, 99604-7 #### [facility] ([id number]) [address] [place] [address] 83890 CO2 [Moles/Vol] 24 mmol/L Normal 22-32 [facility] Comment on above: Performed By: #### 1 988-5, 2639-3, 2156-6, CBCA, CMP, 64387-3 #### [facility] ([id number]) [address] [place] [address] 86744 Creatinine [Mass/Vol] 0.97 mg/dL Normal 0.40-1.00 [facility] Comment on above: Result Comment: METH OD TRACEABLE TO IDMS STANDARD Performed By: #### 1 988-5, 2639-3, 6, CBCA, CMP, 80373-3 #### [facility] ([id number]) [address] [place] [address] 31902 GFR/1.73 sq M.predicted among non-blacks MDRD (S/P/Bld) [Vol rate/Area] 79 mL/min/{1.73_m2} Normal >59 [facility] Comment on above: Result Comment: Reported eGFR is based on the CKD-EPI 2020 equation that does not use a race coefficient. Performed By: #### 1 988-5, 2639-3, 2156-6, CBCA, CMP, 22412-6 #### [facility] ([id number]) [address] [place] [address] 49082 Glucose [Mass/Vol] 92 mg/dL Normal 65-99 [facility] Comment on above: Performed By: #### 1 988-5, 2639-3, 2156-6, CBCA, CMP, 92579-6 #### [facility] ([id number]) [address] [place] [address] 98996 Potassium [Moles/Vol] 4.2 mmol/L Normal 3.5-5.0 [facility] Comment on above: Performed By: #### 1 988-5, 2639-3, 6, CBCA, CMP, 28369-6 #### [facility] ([id number]) [address] [place] [address] 92213 Protein [Mass/Vol] 8.0 g/dL Normal 6.0-8.0 [facility] Comment on above: Performed By: #### 1 988-5, 2639-3, 6, CBCA, CMP, 34242-7 #### [facility] ([id number]) [address] [place] [address] 20937 Sodium [Moles/Vol] 138 mmol/L Normal 134-146 [facility] Comment on above: Performed By: #### 1 988-5, 2639-3, 6, CBCA, CMP, 33392-1 #### [facility] ([id number]) [address] [place] [address] 63364 Urea nitrogen [Mass/Vol] 8 mg/dL Normal 5-23 [facility] Comment on above: Performed By: #### 1 988-5, 2639-3, 6, CBCA, CMP, 05585-3 #### [facility] ([id number]) [address] [place] [address] 58857 DRUG SCREEN, URINEon 024 AMPHETAMINE/METHAMP Negative Normal NEG [facility] Comment on above: Result Comment: AMPH /METH screening cut off = 1000 ng/mL Performed By: #### 1 988-5, 2639-3, 2156-6, CBCA, CMP, 23858-2 #### [facility] ([id number]) [address] [place] [address] 46854 BARBITURATES Negative Normal NEG [facility] Comment on above: Result Comment: Nguyen iturates screening cut off value = 200 ng/mL Performed By: #### 1 988-5, 2639-3, 6, CBCA, CMP, #### [facility] ([id number]) [address] [place] [address] 45323 BENZODIAZEPINES Negative Normal NEG [facility] Comment on above: Result Comment: Armando odiazepines screening cut off value = 200 ng/mL Performed By: #### 1 988-5, 2639-3, 6, CBCA, CMP, #### [facility] ([id number]) [address] [place] [address] 67029 CANNABINOIDS Positive Abnormal NEG [facility] Comment on above: Result Comment: Conf irmation available upon request. Cannabinoids/THC screening cut off value = 50 ng/mL Performed By: #### 1 988-5, 2639-3, 2156-6, CBCA, CMP, 02735-4 #### [facility] ([id number]) [address] [place] [address] 57818 COCAINE METABOLITE Negative Normal NEG [facility] Comment on above: Result Comment: Coca ine screening cut off value = 300 ng/mL Performed By: #### 1 988-5, 2639-3, 2156-6, CBCA, CMP, 26867-0 #### [facility] ([id number]) [address] [place] [address] 12147 ECSTASY Negative Normal NEG [facility] Comment on above: Result Comment: Ecst asy screening cut off value = 500 ng/mL This report is intended for use in clinical monitoring or management of patients. Performed By: #### 1 988-5, 2639-3, 2156-6, CBCA, CMP, 47151-5 #### [facility] ([id number]) [address] [place] [address] 26776 METHADONE Negative Normal NEG [facility] Comment on above: Result Comment: Meth adone screening cut off value = 300 ng/mL. Performed By: #### 1 988-5, 2639-3, 2156-6, CBCA, CMP, 86721-1 #### [facility] ([id number]) [address] [place] [address] 47246 OPIATES Negative Normal [facility] Comment on above: Result Comment: Opia kimmy screening cut off value = 300 ng/mL NOTE: This test is used for the detection of codeine, hydrocodone (>1000 ng/mL), morphine and hydromorphone (>900 ng/mL) in urine. Performed By: #### 1 988-5, 2639-3, 6, CBCA, CMP, 49404-8 #### [facility] ([id number]) [address] [place] [address] 55042 OXYCODONE Negative Normal NEG [facility] Comment on above: Result Comment: Oxyc odone screening cut off value = 300 ng/mL NOTE: This test is used for the detection of oxycodone and oxymorphone in urine. Performed By: #### 1 988-5, 2639-3, 2156-6, CBCA, CMP, 18311-7 #### [facility] ([id number]) [address] [place] [address] 64079 PHENCYCLIDINE Negative Normal NEG [facility] Comment on above: Result Comment: Phen cyclidine screening cut off value = 25 ng/mL Performed By: #### 1 988-5, 2639-3, 2157-04, CBCA, CMP, 16318-3 #### [facility] ([id number]) [address] [place] [address] 82620 ETHANOLon 08-11-2024 Ethanol [Mass/Vol] mg/dL Normal 0.00-0.08 [facility] Comment on above: Result Comment: This report is intended for use in clinical monitoring or management of patients. Performed By: #### 1 988-5, 2638-3, 2157-04, CBCA, CMP, 22538-9 #### [facility] ([id number]) [address] [place] [address] 40407 HCG ( test) Ql (U)o n 08-11-2024 Beta HCG ( test) Ql (U) Negative Normal NEG [facility] Comment on above: Performed By: #### 1 988-5, 263-3, 2157-04, CBCA, CMP, 77757-8 #### [facility] ([id number]) [address] [place] [address] 50048 MAGNESIUMon 08-11-2024 Magnesium [Mass/Vol] 2.2 mg/dL Normal 1.8-2.6 [facility] Comment on above: Performed By: #### 1 988-5, 2639-3, 2157-04, CBCA, CMP, 73419-2 #### [facility] ([id number]) [address] [place] [address] 91437 Salicylates [Mass/Vol]on SALICYLATE <4.0 Normal 2.0-25.0 [facility] Comment on above: Result Comment: Refe rence ranges are for therapeutic limits. Performed By: #### 1 988-5, 2639-3, 2157-6, CBCA, CMP, 50855-9 #### [facility] ([id number]) [address] [place] [address] 24830 Troponin I.cardiac High sens itivity method [Mass/Vol]on 08-11-2024 TROPONIN I, HIGH SENSITIVITY <2 Normal <16 [facility] Comment on above: Performed By: #### 1 988-5, 2639-3, 2156-6, CBCA, CMP, 34671-2 #### [facility] ([id number]) [address] [place] [address] 83119 URN MACROSCOPIC NURon 2023 BILIRUBIN TEJA Negative Normal NEG [facility] Comment on above: Performed By: #### 1 988-5, 2639-3, 2156-6, CBCA, CMP, 72090-3 #### [facility] ([id number]) [address] [place] [address] [place] [address] BLOOD/HGB TEJA Negative Normal NEG [facility] Comment on above: Performed By: #### 1 988-5, 2639-3, 2156-6, CBCA, CMP, 92135-0 #### [facility] ([id number]) [address] [place] [address] 66035 GLUCOSE TEJA Negative Normal NEG [facility] Comment on above: Performed By: #### 1 988-5, 2639-3, 2156-6, CBCA, CMP, 70063-9 #### [facility] ([id number]) [address] [place] [address] 00535 KETONES TEJA Negative Normal NEG [facility] Comment on above: Performed By: #### 1 988-5, 2639-3, 2156-6, CBCA, CMP, 28593-2 #### [facility] ([id number]) [address] [place] [address] 30526 LEUKOCYTE ESTERASE TEJA Negative Normal NEG [facility] Comment on above: Performed By: #### 1 988-5, 2639-3, 2156-6, CBCA, CMP, 42807-5 #### [facility] ([id number]) [address] [place] [address] 79176 NITRITE TEJA Negative Normal NEG [facility] Comment on above: Performed By: #### 1 988-5, 2639-3, 6, CBCA, CMP, 84864-4 #### [facility] ([id number]) [address] [place] [address] 50483 PH TEJA 5.5 Normal 5.0-8.5 [facility] Comment on above: Performed By: #### 1 988-5, 2639-3, 6, CBCA, CMP, 64269-2 #### [facility] ([id number]) [address] [place] [address] 94158 PROTEIN TEJA Negative Normal NEG [facility] Comment on above: Performed By: #### 1 988-5, 2639-3, 2157-04, CBCA, CMP, 65308-5 #### [facility] ([id number]) [address] [place] [address] 31149 SPECIFIC GRAVITY TEJA <=1.005 Normal 1.003-1.035 [facility] Comment on above: Performed By: #### 1 988-5, 2639-3, 6, CBCA, CMP, 33460-5 #### [facility] ([id number]) [address] [place] [address] 72851 UROBILINOGEN TEJA 0.2 eu/dL Normal <1.1 [facility] Comment on above: Performed By: #### 1 988-5, 2639-3, 2156-6, CBCA, CMP, 93431-7 #### [facility] ([id number]) [address] [place] [address] 36590 Lab - Other Lab Resultson Lab - Other Lab Results [id number]#1 [facility]-2024 Free T4 [Mass/Vol] 0.82 ng/dL Normal 0.61-1.60 [facility] Comment on above: Performed By: #### 1 988-5, 2639-3, 6, CBCA, CMP, 94394-9 #### [facility] ([id number]) [address] [place] [address] 25638 TSH Qnon 05-10-2024 TSH 1.07 uIU/mL Normal 0.49-4.67 [facility] Comment on above: Performed By: #### 1 988-5, 2639-3, 2157-04, CBCA, CMP, 86810-8 #### [facility] ([id number]) [address] [place] [address] 07262 Outside Recordson 05-07-2024 Outside Records [id number]#1 .00[facility] Patient Handouton 05-07-2024 Patient Handout [id number]#1 .00[facility] Patient Handout [id number]#1 .00[facility] CBC AND AUTO DIFFon 05-04-20 ABSOLUTE BASOPHIL 0.0 X10E9/L Normal 0.0-0.2 [facility] Comment on above: Performed By: #### 1 988-5, 2639-3, 6, CBCA, CMP, 29388-7 #### [facility] ([id number]) [address] [place] [address] 19907 ABSOLUTE NEUTROPHIL 6.1 X10E9/L Normal 1.5-6.6 [facility] Comment on above: Performed By: #### 1 988-5, 263-3, 2157-04, CBCA, CMP, 78779-1 #### [facility] ([id number]) [address] [place] [address] 05070 Basophils/100 WBC (Bld) 0.5 % Normal [facility] Comment on above: Performed By: #### 1 988-5, 263-3, 2157-04, CBCA, CMP, 82278-6 #### [facility] ([id number]) [address] [place] [address] 58277 Eosinophils (Bld) [#/Vol] 0.3 10*3/uL Normal 0.0-0.4 [facility] Comment on above: Performed By: #### 1 988-5, 2639-01, 2157-04, CBCA, CMP, 30757-5 #### [facility] ([id number]) [address] [place] [address] 75099 Eosinophils/100 WBC (Bld) 2.6 % Normal [facility] Comment on above: Performed By: #### 1 988-5, 3, 2157-04, CBCA, CMP, 45904-5 #### [facility] ([id number]) [address] [place] [address] 67636 Erythrocyte distribution width (RBC) [Ratio] 13.6 % Normal 11.5-15.0 [facility] Comment on above: Performed By: #### 1 988-5, 2639-3, 2157-04, CBCA, CMP, 58727-0 #### [facility] ([id number]) [address] [place] [address] 20602 Hematocrit (Bld) [Volume fraction] 39.3 % Normal 35-47 [facility] Comment on above: Performed By: #### 1 988-5, 2639-3, 6, CBCA, CMP, 53417-9 #### [facility] ([id number]) [address] [place] [address] 86850 Hemoglobin (Bld) [Mass/Vol] 13.2 g/dL Normal 11.7-15.5 [facility] Comment on above: Performed By: #### 1 988-5, 2639-3, 6, CBCA, CMP, 52941-6 #### [facility] ([id number]) [address] [place] [address] 33719 Lymphocytes (Bld) [#/Vol] 2.5 10*3/uL Normal 1.0-3.5 [facility] Comment on above: Performed By: #### 1 988-5, 263-3, 2157-04, CBCA, CMP, 06297-1 #### [facility] ([id number]) [address] [place] [address] 29252 Lymphocytes/100 WBC (Bld) 24.1 % Normal [facility] Comment on above: Performed By: #### 1 988-5, 263-3, 2157-04, CBCA, CMP, 76490-3 #### [facility] ([id number]) [address] [place] [address] 75990 MCH (RBC) [Entitic mass] 30.4 pg Normal 27-34 [facility] Comment on above: Performed By: #### 1 988-5, 2639-3, 6, CBCA, CMP, 26960-4 #### [facility] ([id number]) [address] [place] [address] 69203 MCHC (RBC) [Mass/Vol] 33.5 g/dL Normal 32-36 [facility] Comment on above: Performed By: #### 1 988-5, 2639-3, 2157-6, CBCA, CMP, 38385-0 #### [facility] ([id number]) [address] [place] [address] 63143 MCV (RBC) [Entitic vol] 91 fL Normal 80-100 [facility] Comment on above: Performed By: #### 1 988-5, 2639-3, 6, CBCA, CMP, 06349-6 #### [facility] ([id number]) [address] [place] [address] 14205 Monocytes (Bld) [#/Vol] 1.4 10*3/uL High 0-0.9 [facility] Comment on above: Performed By: #### 1 988-5, 263-3, 6, CBCA, CMP, 79891-7 #### [facility] ([id number]) [address] [place] [address] 18397 Monocytes/100 WBC (Bld) 13.4 % Normal [facility] Comment on above: Performed By: #### 1 988-5, 2639-3, 6, CBCA, CMP, 18920-5 #### [facility] ([id number]) [address] [place] [address] 88728 Neutrophils/100 WBC (Bld) 59.4 % Normal [facility] Comment on above: Performed By: #### 1 988-5, 2639-3, 6, CBCA, CMP, 41532-5 #### [facility] ([id number]) [address] [place] [address] 48398 Platelet mean volume (Bld) [Entitic vol] 7.5 fL Normal 7-12 [facility] Comment on above: Performed By: #### 1 988-5, 2639-3, 6, CBCA, CMP, 20387-1 #### [facility] ([id number]) [address] [place] [address] 62815 Platelets (Bld) [#/Vol] 369 10*3/uL Normal 150-450 [facility] Comment on above: Performed By: #### 1 988-5, 2639-3, 6, CBCA, CMP, 43507-4 #### [facility] ([id number]) [address] [place] [address] 33351 RBC COUNT 4.34 X10E12/L Normal 3.80-5.20 [facility] Comment on above: Performed By: #### 1 988-5, 2639-3, 6, CBCA, CMP, 59605-5 #### [facility] ([id number]) [address] [place] [address] 54573 WBC (Bld) [#/Vol] 10.3 10*3/uL Normal 4.0-11.0 [facility] Comment on above: Performed By: #### 1 988-5, 2639-3, 6, CBCA, CMP, 67349-8 #### [facility] ([id number]) [address] [place] [address] 41363 COMPREHENSIVE METABOLIC PANE Efren 05-04-2024 Albumin [Mass/Vol] 3.3 g/dL Normal 3.2-5.3 [facility] Comment on above: Performed By: #### 1 988-5, 2639-3, 6, CBCA, CMP, 58201-5 #### [facility] ([id number]) [address] [place] [address] 73211 ALP [Catalytic activity/Vol] 122 U/L Normal 39-130 [facility] Comment on above: Performed By: #### 1 988-5, 2639-3, 6, CBCA, CMP, 93300-6 #### [facility] ([id number]) [address] [place] [address] ALT [Catalytic activity/Vol] 109 U/L High 0-31 [facility] Comment on above: Performed By: #### 1 988-5, 2639-3, 6, CBCA, CMP, 97440-5 #### [facility] ([id number]) [address] [place] [address] 76181 Anion gap [Moles/Vol] 9 mmol/L Normal 5-15 [facility] Comment on above: Performed By: #### 1 988-5, 2639-3, 6, CBCA, CMP, 37115-2 #### [facility] ([id number]) [address] [place] [address] 53597 AST [Catalytic activity/Vol] 58 U/L High 0-41 [facility] Comment on above: Performed By: #### 1 988-5, 2639-3, 6, CBCA, CMP, 33757-8 #### [facility] ([id number]) [address] [place] [address] 85504 Bilirubin [Mass/Vol] 0.5 mg/dL Normal 0.3-1.2 [facility] Comment on above: Performed By: #### 1 988-5, 2639-3, 6, CBCA, CMP, 81387-5 #### [facility] ([id number]) [address] [place] [address] 28713 Calcium [Mass/Vol] 9.0 mg/dL Normal 8.5-10.5 [facility] Comment on above: Performed By: #### 1 988-5, 2639-3, 6, CBCA, CMP, 71565-2 #### [facility] ([id number]) [address] [place] [address] 22909 Chloride [Moles/Vol] 105 mmol/L Normal 98-109 [facility] Comment on above: Performed By: #### 1 988-5, 2639-3, 6, CBCA, CMP, 33547-6 #### [facility] ([id number]) [address] [place] [address] 21097 CO2 [Moles/Vol] 23 mmol/L Normal 22-32 [facility] Comment on above: Performed By: #### 1 988-5, 2639-3, 6, CBCA, CMP, 31373-8 #### [facility] ([id number]) [address] [place] [address] 30596 Creatinine [Mass/Vol] 0.90 mg/dL Normal 0.40-1.00 [facility] Comment on above: Result Comment: METH OD TRACEABLE TO IDMS STANDARD Performed By: #### 1 988-5, 2639-3, 6, CBCA, CMP, 80118-8 #### [facility] ([id number]) [address] [place] [address] 07431 GFR/1.73 sq M.predicted among non-blacks MDRD (S/P/Bld) [Vol rate/Area] 87 mL/min/{1.73_m2} Normal >59 [facility] Comment on above: Result Comment: Reported eGFR is based on the CKD-EPI 1 equation that does not use a race coefficient. Performed By: #### 1 988-5, 2639-3, 6, CBCA, CMP, 09781-6 #### [facility] ([id number]) [address] [place] [address] 42675 Glucose [Mass/Vol] 94 mg/dL Normal 65-99 [facility] Comment on above: Performed By: #### 1 988-5, 2639-3, 6, CBCA, CMP, 77311-8 #### [facility] ([id number]) [address] [place] [address] 39059 Potassium [Moles/Vol] 3.9 mmol/L Normal 3.5-5.0 [facility] Comment on above: Performed By: #### 1 988-5, 2639-3, 6, CBCA, CMP, 01766-6 #### [facility] ([id number]) [address] [place] [address] 11369 Protein [Mass/Vol] 7.6 g/dL Normal 6.0-8.0 [facility] Comment on above: Performed By: #### 1 988-5, 2639-3, 6, CBCA, CMP, 35888-7 #### [facility] ([id number]) [address] [place] [address] 76935 Sodium [Moles/Vol] 137 mmol/L Normal 134-146 [facility] Comment on above: Performed By: #### 1 988-5, 2639-3, 6, CBCA, CMP, 69320-3 #### [facility] ([id number]) [address] [place] [address] 57618 Urea nitrogen [Mass/Vol] 8 mg/dL Normal 5-23 [facility] Comment on above: Performed By: #### 1 988-5, 2639-3, 6, CBCA, CMP, 69384-7 #### [facility] ([id number]) [address] [place] [address] 58647 MAGNESIUMon 05-04-2024 Magnesium [Mass/Vol] 1.9 mg/dL Normal 1.8-2.6 [facility] Comment on above: Performed By: #### 1 988-5, 2639-3, 6, CBCA, CMP, 77854-1 #### [facility] ([id number]) [address] [place] [address] 56251 CBC AND AUTO DIFFon 05-03-20 ABSOLUTE BASOPHIL 0.0 X10E9/L Normal 0.0-0.2 [facility] Comment on above: Performed By: #### 1 988-5, 2639-3, 6, CBCA, CMP, 63564-3 #### [facility] ([id number]) [address] [place] [address] 17233 ABSOLUTE NEUTROPHIL 7.1 X10E9/L High 1.5-6.6 [facility] Comment on above: Performed By: #### 1 988-5, 2639-3, 2157-04, CBCA, CMP, 77016-6 #### [facility] ([id number]) [address] [place] [address] 16823 Basophils/100 WBC (Bld) 0.4 % Normal [facility] Comment on above: Performed By: #### 1 988-5, 2638-3, 2157-04, CBCA, CMP, 93499-9 #### [facility] ([id number]) [address] [place] [address] 15182 Eosinophils (Bld) [#/Vol] 0.1 10*3/uL Normal 0.0-0.4 [facility] Comment on above: Performed By: #### 1 988-5, 2638-3, 2157-04, CBCA, CMP, 93898-4 #### [facility] ([id number]) [address] [place] [address] 65911 Eosinophils/100 WBC (Bld) 0.8 % Normal [facility] Comment on above: Performed By: #### 1 988-5, 2639-3, 2157-04, CBCA, CMP, 47590-3 #### [facility] ([id number]) [address] [place] [address] 76920 Erythrocyte distribution width (RBC) [Ratio] 13.5 % Normal 11.5-15.0 [facility] Comment on above: Performed By: #### 1 988-5, 2639-3, 2157-6, CBCA, CMP, #### [facility] ([id number]) [address] [place] [address] 01910 Hematocrit (Bld) [Volume fraction] 37.2 % Normal 35-47 [facility] Comment on above: Performed By: #### 1 988-5, 9-3, 6, CBCA, CMP, #### [facility] ([id number]) [address] [place] [address] 76473 Hemoglobin (Bld) [Mass/Vol] 12.5 g/dL Normal 11.7-15.5 [facility] Comment on above: Performed By: #### 1 988-5, 2638-3, 2157-04, CBCA, CMP, #### [facility] ([id number]) [address] [place] [address] 00087 Lymphocytes (Bld) [#/Vol] 2.2 10*3/uL Normal 1.0-3.5 [facility] Comment on above: Performed By: #### 1 988-5, 2639-01, 2157-04, CBCA, CMP, 00623-0 #### [facility] ([id number]) [address] [place] [address] 13947 Lymphocytes/100 WBC (Bld) 20.2 % Normal [facility] Comment on above: Performed By: #### 1 988-5, 2638-3, 2157-04, CBCA, CMP, #### [facility] ([id number]) [address] [place] [address] 05365 MCH (RBC) [Entitic mass] 30.3 pg Normal 27-34 [facility] Comment on above: Performed By: #### 1 988-5, 2639-3, 2157-04, CBCA, CMP, 26370-6 #### [facility] ([id number]) [address] [place] [address] 17178 MCHC (RBC) [Mass/Vol] 33.5 g/dL Normal 32-36 [facility] Comment on above: Performed By: #### 1 988-5, 2639-3, 6, CBCA, CMP, 01654-6 #### [facility] ([id number]) [address] [place] [address] 10328 MCV (RBC) [Entitic vol] 90 fL Normal 80-100 [facility] Comment on above: Performed By: #### 1 988-5, 2639-3, 6, CBCA, CMP, 51316-4 #### [facility] ([id number]) [address] [place] [address] 80694 Monocytes (Bld) [#/Vol] 1.5 10*3/uL High 0-0.9 [facility] Comment on above: Performed By: #### 1 988-5, 2639-3, 6, CBCA, CMP, 97341-0 #### [facility] ([id number]) [address] [place] [address] 47083 Monocytes/100 WBC (Bld) 13.8 % Normal [facility] Comment on above: Performed By: #### 1 988-5, 2639-3, 6, CBCA, CMP, 09870-3 #### [facility] ([id number]) [address] [place] [address] 92065 Neutrophils/100 WBC (Bld) 64.8 % Normal [facility] Comment on above: Performed By: #### 1 988-5, 2639-3, 6, CBCA, CMP, 43607-1 #### [facility] ([id number]) [address] [place] [address] 30386 Platelet mean volume (Bld) [Entitic vol] 7.4 fL Normal 7-12 [facility] Comment on above: Performed By: #### 1 988-5, 2639-3, 2156-6, CBCA, CMP, 73098-0 #### [facility] ([id number]) [address] [place] [address] 04490 Platelets (Bld) [#/Vol] 325 10*3/uL Normal 150-450 [facility] Comment on above: Performed By: #### 1 988-5, 2639-3, 6, CBCA, CMP, 48525-2 #### [facility] ([id number]) [address] [place] [address] 15590 RBC COUNT 4.12 X10E12/L Normal 3.80-5.20 [facility] [facility] Comment on above: Performed By: #### 1 988-5, 263-3, 6, CBCA, CMP, 42227-3 #### [facility] ([id number]) [address] [place] [address] 01045 WBC (Bld) [#/Vol] 11.0 10*3/uL Normal 4.0-11.0 [facility] Comment on above: Performed By: #### 1 988-5, 2639-3, 6, CBCA, CMP, 95192-3 #### [facility] ([id number]) [address] [place] [address] 83739 COMPREHENSIVE METABOLIC PANE [facility] 05-03-2024 Albumin [Mass/Vol] 3.2 g/dL Normal 3.2-5.3 [facility] Comment on above: Performed By: #### 1 988-5, 2639-3, 6, CBCA, CMP, 62069-2 #### [facility] ([id number]) [address] [place] [address] 02879 ALP [Catalytic activity/Vol] 111 U/L Normal 39-130 [facility] Comment on above: Performed By: #### 1 988-5, 2639-3, 2156-6, CBCA, CMP, 00348-5 #### [facility] ([id number]) [address] [place] [address] 50608 ALT [Catalytic activity/Vol] 58 U/L High 0-31 [facility] Comment on above: Performed By: #### 1 988-5, 2639-3, 6, CBCA, CMP, 01633-0 #### [facility] ([id number]) [address] [place] [address] 63455 Anion gap [Moles/Vol] 8 mmol/L Normal 5-15 [facility] Comment on above: Performed By: #### 1 988-5, 2639-3, 6, CBCA, CMP, 16267-3 #### [facility] ([id number]) [address] [place] [address] 34603 AST [Catalytic activity/Vol] 43 U/L High 0-41 [facility] Comment on above: Performed By: #### 1 988-5, 2639-3, 6, CBCA, CMP, 36423-5 #### [facility] ([id number]) [address] [place] [address] 40534 Bilirubin [Mass/Vol] 0.9 mg/dL Normal 0.3-1.2 [facility] Comment on above: Performed By: #### 1 988-5, 2639-3, 6, CBCA, CMP, 04370-9 #### [facility] ([id number]) [address] [place] [address] 13586 Calcium [Mass/Vol] 8.8 mg/dL Normal 8.5-10.5 [facility] Comment on above: Performed By: #### 1 988-5, 2639-3, 6, CBCA, CMP, 74950-4 #### [facility] ([id number]) [address] [place] [address] 02452 Chloride [Moles/Vol] 105 mmol/L Normal 98-109 [facility] Comment on above: Performed By: #### 1 988-5, 2639-3, 6, CBCA, CMP, 98901-3 #### [facility] ([id number]) [address] [place] [address] 81733 CO2 [Moles/Vol] 23 mmol/L Normal 22-32 [facility] Comment on above: Performed By: #### 1 988-5, 263-3, 2157-04, CBCA, CMP, 19575-7 #### [facility] ([id number]) [address] [place] [address] 31017 Creatinine [Mass/Vol] 0.90 mg/dL Normal 0.40-1.00 [facility] Comment on above: Result Comment: METH OD TRACEABLE TO IDMS STANDARD Performed By: #### 1 988-5, 2639-3, 6, CBCA, CMP, 17011-0 #### [facility] ([id number]) [address] [place] [address] 32528 GFR/1.73 sq M.predicted among non-blacks MDRD (S/P/Bld) [Vol rate/Area] 87 mL/min/{1.73_m2} Normal >59 [facility] Comment on above: Result Comment: Reported eGFR is based on the CKD-EPI 2020 equation that does not use a race coefficient. Performed By: #### 1 988-5, 2639-3, 6, CBCA, CMP, 63750-9 #### [facility] ([id number]) [address] [place] [address] 85312 Glucose [Mass/Vol] 88 mg/dL Normal 65-99 [facility] Comment on above: Performed By: #### 1 988-5, 2639-3, 6, CBCA, CMP, 24991-2 #### [facility] ([id number]) [address] [place] [address] 67723 Potassium [Moles/Vol] 3.4 mmol/L Low 3.5-5.0 [facility] Comment on above: Performed By: #### 1 988-5, 2639-3, 6, CBCA, CMP, 98562-9 #### [facility] ([id number]) [address] [place] [address] 98577 Protein [Mass/Vol] 7.5 g/dL Normal 6.0-8.0 [facility] Comment on above: Performed By: #### 1 988-5, 2639-3, 6, CBCA, CMP, 59645-8 #### [facility] ([id number]) [address] [place] [address] 87612 Sodium [Moles/Vol] 136 mmol/L Normal 134-146 [facility] Comment on above: Performed By: #### 1 988-5, 263-3, 2157-04, CBCA, CMP, 04340-5 #### [facility] ([id number]) [address] [place] [address] 43963 Urea nitrogen [Mass/Vol] 8 mg/dL Normal 5-23 [facility] Comment on above: Performed By: #### 1 988-5, 2639-3, 6, CBCA, CMP, 09604-2 #### [facility] ([id number]) [address] [place] [address] 55771 MAGNESIUMon 05-03-2024 Magnesium [Mass/Vol] 1.9 mg/dL Normal 1.8-2.6 [facility] Comment on above: Performed By: #### 1 988-5, 2639-3, 2157-6, CBCA, CMP, 89364-8 #### [facility] ([id number]) [address] [place] [address] 11781 POTASSIUMon 05-03-2024 Potassium [Moles/Vol] 3.7 mmol/L Normal 3.5-5.0 [facility] Comment on above: Performed By: #### 1 988-5, 2639-3, 6, CBCA, CMP, 86082-6 #### [facility] ([id number]) [address] [place] [address] 53597 CBC AND AUTO DIFFon 05-02-20 ABSOLUTE BASOPHIL 0.2 X10E9/L Normal 0.0-0.2 [facility] Comment on above: Performed By: #### 1 988-5, 2639-3, 2157-04, CBCA, CMP, 95395-5 #### [facility] ([id number]) [address] [place] [address] 97257 ABSOLUTE NEUTROPHIL 13.8 X10E9/L High 1.5-6.6 [facility] Comment on above: Performed By: #### 1 988-5, 263-3, 2157-04, CBCA, CMP, #### [facility] ([id number]) [address] [place] [address] 31051 Basophils/100 WBC (Bld) 1.1 % Normal [facility] Comment on above: Performed By: #### 1 988-5, 2639-3, 6, CBCA, CMP, 09036-5 #### [facility] ([id number]) [address] [place] [address] 65909 Eosinophils (Bld) [#/Vol] 0.0 10*3/uL Normal 0.0-0.4 [facility] Comment on above: Performed By: #### 1 988-5, 2639-3, 6, CBCA, CMP, #### [facility] ([id number]) [address] [place] [address] 61518 Eosinophils/100 WBC (Bld) 0.2 % Normal [facility] Comment on above: Performed By: #### 1 988-5, 2639-3, 6, CBCA, CMP, 03897-3 #### [facility] ([id number]) [address] [place] [address] 12632 Erythrocyte distribution width (RBC) [Ratio] 13.4 % Normal 11.5-15.0 [facility] Comment on above: Performed By: #### 1 988-5, 263-3, 2157-04, CBCA, CMP, 20503-4 #### [facility] ([id number]) [address] [place] [address] 73480 Hematocrit (Bld) [Volume fraction] 39.1 % Normal 35-47 [facility] Comment on above: Performed By: #### 1 988-5, 2639-3, 6, CBCA, CMP, 66973-1 #### [facility] ([id number]) [address] [place] [address] 90588 Hemoglobin (Bld) [Mass/Vol] 13.3 g/dL Normal 11.7-15.5 [facility] Comment on above: Performed By: #### 1 988-5, 2639-3, 6, CBCA, CMP, 82078-0 #### [facility] ([id number]) [address] [place] [address] 44721 Lymphocytes (Bld) [#/Vol] 1.4 10*3/uL Normal 1.0-3.5 [facility] Comment on above: Performed By: #### 1 988-5, 2639-3, 6, CBCA, CMP, 27425-7 #### [facility] ([id number]) [address] [place] [address] 88439 Lymphocytes/100 WBC (Bld) 8.0 % Normal [facility] Comment on above: Performed By: #### 1 988-5, 2639-3, 6, CBCA, CMP, 63426-1 #### [facility] ([id number]) [address] [place] [address] 95658 MCH (RBC) [Entitic mass] 30.3 pg Normal 27-34 [facility] Comment on above: Performed By: #### 1 988-5, 263-3, 2157-04, CBCA, CMP, 26716-5 #### [facility] ([id number]) [address] [place] [address] 91504 MCHC (RBC) [Mass/Vol] 34.1 g/dL Normal 32-36 [facility] Comment on above: Performed By: #### 1 988-5, 2638-3, 2157-04, CBCA, CMP, 81989-6 #### [facility] ([id number]) [address] [place] [address] 85917 MCV (RBC) [Entitic vol] 89 fL Normal 80-100 [facility] Comment on above: Performed By: #### 1 988-5, 263-3, 2157-04, CBCA, CMP, 12685-4 #### [facility] ([id number]) [address] [place] [address] 28789 Monocytes (Bld) [#/Vol] 1.6 10*3/uL High 0-0.9 [facility] Comment on above: Performed By: #### 1 988-5, 2639-3, 6, CBCA, CMP, 38696-7 #### [facility] ([id number]) [address] [place] [address] 03754 Monocytes/100 WBC (Bld) 9.5 % Normal [facility] Comment on above: Performed By: #### 1 988-5, 2639-3, 6, CBCA, CMP, 09665-6 #### [facility] ([id number]) [address] [place] [address] 70313 Neutrophils/100 WBC (Bld) 81.2 % Normal [facility] Comment on above: Performed By: #### 1 988-5, 2639-3, 6, CBCA, CMP, 84388-6 #### [facility] ([id number]) [address] [place] [address] 74900 Platelet mean volume (Bld) [Entitic vol] 7.2 fL Normal 7-12 [facility] Comment on above: Performed By: #### 1 988-5, 2639-3, 6, CBCA, CMP, 64177-5 #### [facility] ([id number]) [address] [place] [address] 35088 Platelets (Bld) [#/Vol] 348 10*3/uL Normal 150-450 [facility] Comment on above: Performed By: #### 1 988-5, 2639-3, 6, CBCA, CMP, 33327-8 #### [facility] ([id number]) [address] [place] [address] 77651 RBC COUNT 4.40 X10E12/L Normal 3.80-5.20 [facility] Comment on above: Performed By: #### 1 988-5, 2639-3, 6, CBCA, CMP, 12001-3 #### [facility] ([id number]) [address] [place] [address] 34549 RBC morphology finding Nom (Bld) NORMAL Normal [facility] Comment on above: Performed By: #### 1 988-5, 2639-3, 6, CBCA, CMP, 56698-2 #### [facility] ([id number]) [address] [place] [address] 35350 WBC (Bld) [#/Vol] 17.0 10*3/uL High 4.0-11.0 [facility] Comment on above: Performed By: #### 1 988-5, 2639-3, 2156-6, CBCA, CMP, 25065-6 #### [facility] ([id number]) [address] [place] [address] 47859 CK [Catalytic activity/Vol]o n 05-02-2024 CPK 37 U/L Normal 24-170 [facility] Comment on above: Performed By: #### 1 988-5, 2639-3, 6, CBCA, CMP, 73357-8 #### [facility] ([id number]) [address] [place] [address] 76656 COMPREHENSIVE METABOLIC PANE Efren 05-02-2024 Albumin [Mass/Vol] 3.9 g/dL Normal 3.2-5.3 [facility] Comment on above: Performed By: #### 1 988-5, 2639-3, 6, CBCA, CMP, 12203-7 #### [facility] ([id number]) [address] [place] [address] 03255 ALP [Catalytic activity/Vol] 101 U/L Normal 39-130 [facility] Comment on above: Performed By: #### 1 988-5, 2639-3, 2156-6, CBCA, CMP, 54999-4 #### [facility] ([id number]) [address] [place] [address] 12026 ALT [Catalytic activity/Vol] 46 U/L High 0-31 [facility] Comment on above: Performed By: #### 1 988-5, 2639-3, 2156-6, CBCA, CMP, 23828-2 #### [facility] ([id number]) [address] [place] [address] 56378 Anion gap [Moles/Vol] 7 mmol/L Normal 5-15 [facility] Comment on above: Performed By: #### 1 988-5, 2639-3, 6, CBCA, CMP, 08758-2 #### [facility] ([id number]) [address] [place] [address] 59290 AST [Catalytic activity/Vol] 26 U/L Normal 0-41 [facility] Comment on above: Performed By: #### 1 988-5, 2639-3, 6, CBCA, CMP, 78935-8 #### [facility] ([id number]) [address] [place] [address] 12918 Bilirubin [Mass/Vol] 1.3 mg/dL High 0.3-1.2 [facility] Comment on above: Performed By: #### 1 988-5, 2639-3, 6, CBCA, CMP, 32491-5 #### [facility] ([id number]) [address] [place] [address] 66968 Calcium [Mass/Vol] 9.3 mg/dL Normal 8.5-10.5 [facility] Comment on above: Performed By: #### 1 988-5, 2639-3, 6, CBCA, CMP, 70210-4 #### [facility] ([id number]) [address] [place] [address] 71178 Chloride [Moles/Vol] 103 mmol/L Normal 98-109 [facility] Comment on above: Performed By: #### 1 988-5, 2639-3, 6, CBCA, CMP, 37200-5 #### [facility] ([id number]) [address] [place] [address] 02798 CO2 [Moles/Vol] 21 mmol/L Low 22-32 [facility] Comment on above: Performed By: #### 1 988-5, 2639-3, 2156-6, CBCA, CMP, 40067-3 #### [facility] ([id number]) [address] [place] [address] 80352 Creatinine [Mass/Vol] 1.08 mg/dL High 0.40-1.00 [facility] Comment on above: Result Comment: METH OD TRACEABLE TO IDMS STANDARD Performed By: #### 1 988-5, 2639-3, 6, CBCA, CMP, 34080-5 #### [facility] ([id number]) [address] [place] [address] 35297 GFR/1.73 sq M.predicted among non-blacks MDRD (S/P/Bld) [Vol rate/Area] 70 mL/min/{1.73_m2} Normal >59 [facility] Comment on above: Result Comment: Reported eGFR is based on the CKD-EPI 2020 equation that does not use a race coefficient. Performed By: #### 1 988-5, 2639-3, 6, CBCA, CMP, 89173-9 #### [facility] ([id number]) [address] [place] [address] 63874 Glucose [Mass/Vol] 102 mg/dL High 65-99 [facility] Comment on above: Performed By: #### 1 988-5, 2639-3, 6, CBCA, CMP, 05453-1 #### [facility] ([id number]) [address] [place] [address] 12409 Potassium [Moles/Vol] 3.7 mmol/L Normal 3.5-5.0 [facility] Comment on above: Performed By: #### 1 988-5, 2639-3, 2156-6, CBCA, CMP, 83714-7 #### [facility] ([id number]) [address] [place] [address] 38927 Protein [Mass/Vol] 8.5 g/dL High 6.0-8.0 [facility] Comment on above: Performed By: #### 1 988-5, 2639-3, 7-6, CBCA, CMP, 35559-5 #### [facility] ([id number]) [address] [place] [address] 56341 Sodium [Moles/Vol] 131 mmol/L Low 134-146 [facility] Comment on above: Performed By: #### 1 988-5, 2639-3, 2156-6, CBCA, CMP, 59203-9 #### [facility] ([id number]) [address] [place] [address] 22579 Urea nitrogen [Mass/Vol] 7 mg/dL Normal 5-23 [facility] Comment on above: Performed By: #### 1 988-5, 2639-3, 2156-6, CBCA, CMP, 29937-9 #### [facility] ([id number]) [address] [place] [address] 36201 CRP [Mass/Vol]on 05-02-2024 C REACTIVE PROTEIN 27.0 mg/dL High 0.000-0.744 [facility] Comment on above: Performed By: #### 1 988-5, 2639-3, 6, CBCA, CMP, 60751-2 #### [facility] ([id number]) [address] [place] [address] ABDOMEN AND PELVIS W CONT on 05-02-2024 CT ABDOMEN AND PELVIS W CONT CT ABDOMEN AND PELVIS W CONT CLINICAL INFORMATION: Abdominal pain, acute, nonlocalized. COMPARISON: None. PROCEDURE: Routine CT abdomen and pelvis obtained after the uncomplicated intravenous administration of contrast material. Multiplanar reformats obtained from the axial data. All CT scans at this facility use dose modulation, iterative reconstruction, and/or weight based dosing when appropriate to reduce radiation dose to as low as reasonably achievable. FINDINGS: Bibasilar atelectasis. The liver is unremarkable. The gallbladder is visualized. The spleen is normal. The pancreas is unremarkable. Adrenal glands are normal. Patchy enhancement of the right kidney with adjacent inflammation consistent with pyelonephritis. No obstructing calculi. Some scarring the right kidney. Low-attenuation lesions in the left kidney too small to characterize. No hydronephrosis. No bowel obstruction. Aorta is normal. No enlarged lymph nodes. No acute osseous abnormalities. IMPRESSION: * Right pyelonephritis. Finalized by Ray Doll MD on 05/02/2024 7:00 PM Normal [facility] HCG ( test) Ql (U)o n 05-02-2024 Beta HCG ( test) Ql (U) Negative Normal NEG [facility] Comment on above: Performed By: #### 2 106-3 #### [facility] ([id number]) [address] [place] [address] 67644 MAGNESIUMon 05-02-2024 Magnesium [Mass/Vol] 1.8 mg/dL Normal 1.8-2.6 [facility] Comment on above: Performed By: #### 1 988-5, 2639-3, 6, CBCA, CMP, 52332-9 #### [facility] ([id number]) [address] [place] [address] 11890 Myoglobin [Mass/Vol]on 05-02 SERUM MYOGLOBIN 9.0 ng/mL Low 14.3-65.8 [facility] Comment on above: Performed By: #### 1 988-5, 2639-3, 2156-6, CBCA, CMP, 97481-5 #### [facility] ([id number]) [address] [place] [address] 11117 SARS/FLU A+B/RSV by NAAT/Mol ecularon 05-02-2024 SARS/FLU A+B/RSV by NAAT/Molecular FLU A PCR Negative (qualifier value) FLU B PCR Negative (qualifier value) RSV by PCR Negative (qualifier value) SARS CoV 2 Not detected (qualifier value) NOTE The Xpert Xpress SARS-CoV-2/Flu/RSV Plus test is a rapid, multiplexed real-time RT-PCR test intended for the simultaneous qualitative detection and differentiation of SARS-CoV-2, influenza A, influenza B and respiratory syncytial virus (RSV) viral RNA from individuals suspected of respiratory viral infection consistent with COVID-19 by their healthcare provider. This test has not been validated in asymptomatic patients. The Xpert Xpress SARS-CoV-2 test is intended for use by qualified and trained operators who are performing tests using either [employer] or [employer] systems and is limited to laboratories that meet the CLIA requirements to perform high and moderate complexity tests. The Xpert Xpress SARS-CoV-2/Flu/RSV Plus is only for use under the Food and Drug Administration's Emergency Use Authorization. Results are for the simultaneous detection and differentiation of SARS-CoV-2, influenza A, influenza B and RSV nucleic acids in clinical specimens. SARS-CoV-2, influenza A, influenza B and RSV RNA identified by this test are generally detectable in upper respiratory samples during the acute phase of infection. Positive results are indicative of the presence of the identified virus, but do not rule out bacterial infection or co-infection with other pathogens not detected by this test. Clinical correlation with patient history and other diagnostic information is necessary to determine patient infection status. The agent detected may not be the definite cause of disease. Negative results do not preclude SARS-CoV-2, influenza A, influenza B and RSV infection and should not be used as the sole basis for treatment or other patient management decisions. Negative results must be combined with clinical observations, patient history and epidemiological information. An Invalid result may occur with specimen-associated inhibition unable to be resolved with specimen repeat. Fact Sheet for Healthcare Providers: https://www.fda.gov/m edia/430745/download Fact Sheet for Patients: https://www.fda.gov/m edia/500008/download Normal [facility] Comment on above: Performed By: #### C OVFLR #### [facility] ([id number]) [address] [place] [address], [place] [address] URN MACROSCOPIC NURon 2023 BILIRUBIN TEJA Negative Normal NEG [facility] Comment on above: Performed By: #### N UM #### [facility] ([id number]) [address] [place] [address] 03848 BLOOD/HGB TEJA Trace Abnormal NEG [facility] Comment on above: Performed By: #### N UM #### [facility] ([id number]) [address] [place] [address] [place] [address] GLUCOSE TEJA Negative Normal NEG [facility] Comment on above: Performed By: #### N UM #### [facility] ([id number]) [address] [place] [address] 90888 KETONES TEJA Trace Abnormal NEG [facility] Comment on above: Performed By: #### N UM #### [facility] ([id number]) [address] [place] [address] [place] [address] LEUKOCYTE ESTERASE TEJA Small Abnormal NEG [facility] Comment on above: Performed By: #### N UM #### [facility] ([id number]) [address] [place] [address] 68286 NITRITE TEJA Positive Abnormal NEG [facility] Comment on above: Performed By: #### N UM #### [facility] ([id number]) [address] [place] [address] 85095 PH TEJA 7.0 Normal 5.0-8.5 [facility] Comment on above: Performed By: #### N UM #### [facility] ([id number]) [address] [place] [address] 83515 PROTEIN TEJA Negative Normal NEG [facility] Comment on above: Performed By: #### N UM #### [facility] ([id number]) [address] [place] [address] [place] [address] SPECIFIC GRAVITY TEJA 1.010 Normal 1.003-1.035 [facility] Comment on above: Performed By: #### N UM #### [facility] ([id number]) [address] [place] [address] 06472 UROBILINOGEN TEJA 1.0 eu/dL Normal <1.1 [facility] Comment on above: Performed By: #### N UM #### [facility] ([id number]) [address] [place] [address] POCT , urineon 03-12 Beta HCG ( test) Ql (U) Negative [facility] Interpretation and review of laboratory results Normal [facility] CBC without diffon Erythrocyte distribution width (RBC) [Ratio] 13.6 % 11.5 - 15.0 % [facility] Hematocrit (Bld) [Volume fraction] 42.9 % 35 - 47 % [facility] Hemoglobin (Bld) [Mass/Vol] 14.3 g/dL 11.7 - 15.5 g/dL [facility] MCH (RBC) [Entitic mass] 30.8 pg 27 - 34 pg [facility] MCHC (RBC) [Mass/Vol] 33.3 g/dL 32 - 36 g/dL [facility] MCV (RBC) [Entitic vol] 93 fL 80 - 100 fL [facility] Platelet mean volume (Bld) [Entitic vol] 7.5 fL 7 - 12 fL [facility] Platelets (Bld) [#/Vol] 363 10*3/uL [facility] RBC (Bld) [#/Vol] 4.63 10*6/uL [facility] WBC corrected for nucl RBC Auto (Bld) [#/Vol] 9.[address] [facility] CHLAMYDIA/GC PCR, Uon 2023 CHLAMYDIA/GC PCR, U SPECIMEN SOURCE URINE CHLAMYDIA DNA(PCR) Negative (qualifier value) Chlamydia trachomatis not detected by nucleic acid amplification. This does not exclude the possibility of infection because results are dependent on adequate specimen collection. GONORRHOEAE DNA(PCR) Negative (qualifier value) Neisseria gonorrhoeae not detected by nucleic acid amplification. This does not exclude the possibility of infection because results are dependent on adequate specimen collection. Normal [facility] Comment on above: Performed By: #### C #### [facility] ([id number]) [address], [address] [place] [address] Comprehensive metabolic pane efren 03-03-2024 Albumin [Mass/Vol] 4.3 g/dL 3.2 - 5.3 g/dL [facility] ALP [Catalytic activity/Vol] 81 U/L 39 - 130 U/L [facility] ALT No additional P-5'-P [Catalytic activity/Vol] 31 U/L 0 - 31 U/L [facility] Anion gap [Moles/Vol] 9 mmol/L 5 - 15 mmol/L [facility] AST [Catalytic activity/Vol] 16 U/L 0 - 41 U/L [facility] Bilirubin [Mass/Vol] 0.3 mg/dL 0.3 - 1 .2 mg/dL [facility] Calcium [Mass/Vol] 9.7 mg/dL 8.5 - 10. 5 mg/dL [facility] Chloride [Moles/Vol] 104 mmol/L 98 - 10 9 mmol/L [facility] CO2 [Moles/Vol] 27 mmol/L 22 - 32 mmol/L [facility] Creatinine [Mass/Vol] 0.77 mg/dL 0.40 - 1.00 mg/dL [facility] Comment on above: METHOD TRACEABLE TO IDNM STANDARD eGFR (CKD-EPI)non-race dependent - PINF [facility] Comment on above: Reported eGFR is based on the CKD-EPI 202 equation that does not use a race coefficient. Glucose [Mass/Vol] 92 mg/dL 65 - 99 mg/dL [facility] Potassium [Moles/Vol] 4.2 mmol/L 3.5 - 5.0 mmol/L [facility] Protein [Mass/Vol] 7.7 g/dL 6.0 - 8.0 g/dL [facility] Sodium [Moles/Vol] 140 mmol/L 134 - 146 mmol/L [facility] Urea nitrogen [Mass/Vol] 9 mg/dL 5 - 23 mg/dL [facility] Free T4 [Mass/Vol]on 024 [facility] Hemoglobin A1con 03-03-2024 Average glucose Estimated from glycated hemoglobin (Bld) [Mass/Vol] 108 mg/dL [facility] HbA1c (Bld) [Mass fraction] 5.4 % 4.4 - 5.6 % [facility] Comment on above: NOTE ADA Guidelines Result HgbA1c Normal : less than 5.7 % Prediabetes : 5.7 % to 6.4 % Diabetes : > 6.4 % Use with caution in patients with abnormal hemoglobin variants as the half-life of red blood cells and in vivo glycation rates are affected. [facility] Lipid 1996 panelon Cholesterol [Mass/Vol] 194 mg/dL 150 - 200 mg/dL [facility] Cholesterol in HDL [Mass/Vol] 44 mg/dL 39 - PINF mg/dL [facility] Comment on above: HDL <40 mg/dL - High Risk HDL > or = 40mg/dL- Desirable HDL >60 mg/dL - Negative Risk Cholesterol in LDL [Mass/Vol] 104 mg/dL NINF - 130 mg/dL [facility] Comment on above: LDL <100 mg/dL - Desirable LDL >160 mg/dL - High Risk Cholesterol in VLDL [Mass/Vol] 46 mg/dL High 0 - 30 mg/dL [facility] Cholesterol.total/Cho lesterol in HDL [Mass ratio] 4.4 {ratio} 1.0 - 5.0 [facility] Interpretation and review of laboratory results Abnormal [facility] Triglyceride [Mass/Vol] 229 mg/dL High 27 - 150 mg/dL [facility] No Panel Informationon 03-03 [facility] T4, freeon 03-03-2024 Free T4 [Mass/Vol] 0.80 ng/dL 0.61 - 1. 60 ng/dL [facility] Vitamin D 25 hydroxyon 03-03 Vitamin D+Metabolites [Mass/Vol] 25.3 ng/mL Low 30 - 100 ng/mL [facility] Comment on above: Vitamin D status 25 [place] Vitamin D Deficiency <20 ng/mL Insufficiency 20-29 ng/mL Sufficiency 30-100 ng/mL Toxicity >100 ng/mL NOTE: A pediatric reference range has not been established by the adjunct faculty for medical terminology of this kit. The [employer] recommends a Vitamin D level of = or >20ng/mL in infants and children. Vitamin D+Metabolites [Mass/ Vol]on 03-03-2024 Interpretation and review of laboratory results Abnormal [facility] CBC AUTO DIFFon 07-03-2022 BASO # 0.1 103/ul Normal 0.0-0.1 [facility] Comment on above: Performed By: #### C BC #### [facility] [address] [place] [address] Dr. Kim Torres Basophils/100 WBC (Bld) 0.7 % Normal 0.2-2.0 [facility] Comment on above: Performed By: #### C BC #### [facility] [address] [place] [address] Dr. Kim Torres EO # 0.6 103/ul Normal 0.0-0.7 [facility] Comment on above: Performed By: #### C BC #### [facility] [address] [place] [address] Dr. Kim Torres Eosinophils/100 WBC (Bld) 5.6 % Normal 0.9-7.0 [facility] Comment on above: Performed By: #### C BC #### [facility] [address] [place] [address] Dr. Kim Torres Erythrocyte distribution width (RBC) [Ratio] 12.9 % Normal 11.0-15.0 [facility] Comment on above: Performed By: #### C BC #### [facility] [address] [place] [address] Dr. Kim Torres Hematocrit (Bld) [Volume fraction] 41.8 % Normal 36.0-48.0 [facility] Comment on above: Performed By: #### C BC #### [facility] [address] [place] [address] Dr. Kim Torres Hemoglobin (Bld) [Mass/Vol] 13.9 g/dL Normal 12.0-16.0 [facility] Comment on above: Performed By: #### C BC #### [facility] [address] [place] [address] Dr. Kim Torres IG # 0.06 10e3/ul Critically high 0.00-0.03 [facility] Comment on above: Performed By: #### C BC #### [facility] [address] [place] [address] Dr. Kim Torres IG % 0.5 % Normal 0.0-0.5 [facility] Comment on above: Performed By: #### C BC #### [facility] [address] [place] [address] Dr. Kim Torres LYMPH # 3.2 103/ul Normal 1.2-3.8 [facility] Comment on above: Performed By: #### C BC #### [facility] [address] [place] [address] Dr. Kim Torres Lymphocytes/100 WBC (Bld) 28.0 % Normal 20.5-60.0 [facility] Comment on above: Performed By: #### C BC #### [facility] [address] [place] [address] Dr. Kim Torres MANUAL DIFF REQ NO Normal [facility] Comment on above: Performed By: #### C BC #### [facility] [address] [place] [address] Dr. Kim Torres MCH (RBC) [Entitic mass] 30.8 pg Normal 26.7-34.0 [facility] Comment on above: Performed By: #### C BC #### [facility] [address] [place] [address] Dr. Kim Torres MCHC (RBC) [Mass/Vol] 33.3 g/dL Normal 29.9-35.2 [facility] Comment on above: Performed By: #### C BC #### [facility] [address] [place] [address] Dr. Kim Torres MCV (RBC) [Entitic vol] 92.5 fL Normal 81.0-99.0 [facility] Comment on above: Performed By: #### C BC #### [facility] [address] [place] [address] Dr. Kim Torres MONO # 0.8 103/ul Normal 0.3-0.8 [facility] Comment on above: Performed By: #### C BC #### [facility] [address] [place] [address] Dr. Kim Torres Monocytes/100 WBC (Bld) 6.8 % Normal 1.7-12.0 [facility] Comment on above: Performed By: #### C BC #### [facility] [address] [place] [address] Dr. Kim Torres NEUT # 6.7 103/ul Critically high 1.4-6.5 [facility] Comment on above: Performed By: #### C BC #### [facility] [address] [place] [address] Dr. Kim Torres Neutrophils/100 WBC (Bld) 58.4 % Normal 43.0-75.0 [facility] Comment on above: Performed By: #### C BC #### [facility] [address] [place] [address] Dr. Kim Torres Platelet mean volume (Bld) [Entitic vol] 8.6 fL Critically low 9.5-13.5 [facility] Comment on above: Performed By: #### C BC #### [facility] [address] [place] [address] Dr. Kim Torres PLT 399 103/ul Normal 150-450 [facility] Comment on above: Performed By: #### C BC #### [facility] [address] [address] [address] Kim Torres RBC 4.52 106/ul Normal 4.20-5.40 [facility] Comment on above: Performed By: #### C BC #### [facility] [address] [address] [address] Kim Torres WBC 11.5 103/ul Critically high 4.0-11.0 [facility] Comment on above: Performed By: #### C BC #### [facility] [address] [address] [address] Kim Torres LIPID PROFILEon 07-03-2022 CHOL-HDL RATIO NORM SEE BELOW Normal [facility] Comment on above: Result Comment: 3.3 - 4.4 LOW RISK 4.4 - 7.1 AVERAGE RISK 7.1 - 11.0 MODERATE RISK >11.0 HIGH RISK Performed By: #### L IPID, CMP #### [facility] [address] [address] [address] Kim Torres Cholesterol [Mass/Vol] 191 mg/dL Normal <=200 [facility] Comment on above: Performed By: #### L IPID, CMP #### [facility] [address] [address] [address] Kim Torres Cholesterol in HDL [Mass/Vol] 39 mg/dL Critically low 40-60 [facility] Comment on above: Performed By: #### L IPID, CMP #### [facility] [address] [address] [address] Kim Torres Cholesterol in LDL [Mass/Vol] 126.2 mg/dL Normal [facility] Comment on above: Performed By: #### L IPID, CMP #### [facility] [address] [address] [address] Kim Torres Cholesterol.total/Cho lesterol in HDL [Mass ratio] 4.9 {ratio} Normal [facility] Comment on above: Performed By: #### L IPID, CMP #### [facility] [address] [place] [address] Dr. Kim Torres HDL NORMAL > or = 60 mg/dl - LO W CARDIOVASCULAR RISK <40 mg/dl - HIGH CARDIOVASCULAR RISK Normal [facility] Comment on above: Performed By: #### L IPID, CMP #### [facility] [address] [address] [address] Kim Torres LDL CALC NORMAL SEE BELOW Normal [facility] Comment on above: Result Comment: <100 mg/dl OPTIMAL 100 - 129 mg/dl NEAR OR ABOVE OPTIMAL 130 - 159 mg/dl BORDERLINE HIGH 160 - 189 mg/dl HIGH >190 mg/dl VERY HIGH Performed By: #### L IPID, CMP #### [facility] [address] [place] [address] Dr. Kim Torres Triglyceride [Mass/Vol] 129 mg/dL Normal <=150 [facility] Comment on above: Performed By: #### L IPID, CMP #### [facility] [address] [place] [address] Dr. Kim Torres VLDL CALC 25.8 mg/dL Normal [facility] Comment on above: Performed By: #### L IPID, CMP #### [facility] [address] [place] [address] Dr. Kim Torres PROF 14(COMP METB)on 022 Albumin [Mass/Vol] 3.6 g/dL Normal 3.4-5.0 [facility] Comment on above: Performed By: #### L IPID, CMP #### [facility] [address] [place] [address] Dr. Kim Torres Albumin/Globulin [Mass ratio] 0.9 {ratio} Normal [facility] Comment on above: Performed By: #### L IPID, CMP #### [facility] [address] [place] [address] Dr. Kim Torres ALP [Catalytic activity/Vol] 89 U/L Normal 46-116 [facility] Comment on above: Performed By: #### L IPID, CMP #### [facility] [address] [place] [address] Dr. Kim Torres ALT [Catalytic activity/Vol] 35 U/L Normal 14-59 [facility] Comment on above: Performed By: #### L IPID, CMP #### [facility] [address] [place] [address] Dr. Kim Torres Anion gap [Moles/Vol] 11.1 mmol/L Normal Th [facility] Comment on above: Performed By: #### L IPID, CMP #### [facility] [address] [place] [address] Dr. Kim Torres AST [Catalytic activity/Vol] 12 U/L Critically low 15-37 [facility] Comment on above: Performed By: #### L IPID, CMP #### [facility] [address] [place] [address] Dr. Kim Torres Bilirubin [Mass/Vol] 0.4 mg/dL Normal 0.2-1.0 [facility] Comment on above: Performed By: #### L IPID, CMP #### [facility] [address] [place] [address] Dr. Kim Torres Calcium [Mass/Vol] 9.3 mg/dL Normal 8.5-10.1 [facility] Comment on above: Performed By: #### L IPID, CMP #### [facility] [address] [place] [address] Dr. Kim Torres Chloride [Moles/Vol] 103 mmol/L Normal 98-107 [facility] Comment on above: Performed By: #### L IPID, CMP #### [facility] [address] [place] [address] Dr. Kim Torres CO2 [Moles/Vol] 26.2 mmol/L Normal 21.0-32.0 [facility] Comment on above: Performed By: #### L IPID, CMP #### [facility] [address] [place] [address] Dr. Kim Torres Creatinine [Mass/Vol] 0.88 mg/dL Normal 0.55-1.02 [facility] Comment on above: Performed By: #### L IPID, CMP #### [facility] [address] [place] [address] Dr. Kim Torres EGFR-AF NIGERIEN >60 Normal >=60 [facility] Comment on above: Performed By: #### L IPID, CMP #### [facility] [address] [address] [address] Kim Torres EGFR-NON AF NIGERIEN >60 Normal >=60 [facility] Comment on above: Performed By: #### L IPID, CMP #### [facility] [address] [address] [address] Kim Torres Globulin (S) [Mass/Vol] 4.2 g/dL Normal [facility] Comment on above: Performed By: #### L IPID, CMP #### [facility] [address] [place] [address] Dr. Kim Torres Glucose [Mass/Vol] 91 mg/dL Normal 74-106 [facility] Comment on above: Performed By: #### L IPID, CMP #### [facility] [address] [address] [address] Kim Torres Potassium [Moles/Vol] 4.3 mmol/L Normal 3.5-5.1 [facility] Comment on above: Performed By: #### L IPID, CMP #### [facility] [address] [place] [address] Dr. Kim Torres Protein [Mass/Vol] 7.8 g/dL Normal 6.4-8.2 [facility] Comment on above: Performed By: #### L IPID, CMP #### [facility] [address] [address] [address] Kim Torres Sodium [Moles/Vol] 136 mmol/L Normal 136-145 [facility] Comment on above: Performed By: #### L IPID, CMP #### [facility] [address] [place] [address] Dr. Kim Torres Urea nitrogen [Mass/Vol] 9.0 mg/dL Normal 7.0-18.0 [facility] Comment on above: Performed By: #### L IPID, CMP #### [facility] [address] [place] [address] Dr. Kim Torres Urea nitrogen/Creatinine [Mass ratio] 10.2 mg/mg Normal [facility] Comment on above: Performed By: #### L IPID, CMP #### [facility] [address] [address] [address] Kim Torres SARS-CoV-2 (COVID-19) RNA NA A+probe Ql (Resp)on 06-24-2022 SARS-CoV-2 (COVID-19) RNA JAIME+probe Ql (Unsp spec) Positive ASSET4 Other Vital Signs Date Time Vital Sign Value Performing Clinician Facility 05-05-2025 15:52-0400 Body height 160 cm John Lujan [employer]OR [employer] OFFICER Work Phone: [facility] 05-05-2025 15:52-0400 Body mass index (BMI) [Ratio] 41.84 kg/m2 John Lujan [employer] OFFICER Work Phone: [facility] 05-05-2025 15:52-0400 Body temperature 99.19 [degF] Johnmatt Munizs [employer] OFFICER Work Phone: [facility] 05-05-2025 15:52-0400 Body weight 107.14 kg John Majors [employer] OFFICER Work Phone: [facility] 05-05-2025 15:52-0400 Diastolic blood pressure 80 mm[Hg] John Lujan [employer] OFFICER Work Phone: [facility] 05-05-2025 15:52-0400 Heart rate 91 /min John Munizs [employer] OFFICER Work Phone: [facility] 05-05-2025 15:52-0400 SaO2% (BldA) [Mass fraction] 98 % John Majors [employer] OFFICER Work Phone: [facility] 05-05-2025 15:52-0400 Systolic blood pressure 122 mm[Hg] John Majors [employer] OFFICER Work Phone: [facility] 04-27-2025 09:09-0400 Body mass index (BMI) [Ratio] 42.34 kg/m2 Leah Ricketts HNP-BC Work Phone: [facility] 04-27-2025 09:09-0400 Body weight 108.41 kg Leah Ricketts PMHNP-BC Work Phone: [facility] 04-27-2025 09:09-0400 Diastolic blood pressure 82 mm[Hg] Leah Ricketts PMHNP-BC Work Phone: [facility] 04-27-2025 09:09-0400 Heart rate 80 /min Leah Ricketts PMHNP-BC Work Phone: [facility] 04-27-2025 09:09-0400 Systolic blood pressure 100 mm[Hg] Leah Ricketts PMHNP-BC Work Phone: [facility] 04-07-2025 15:08-0400 Body height 160 cm John Munizs [employer] OFFICER Work Phone: [facility] 04-07-2025 15:08-0400 Body mass index (BMI) [Ratio] 41.59 kg/m2 John Majors [employer] OFFICER Work Phone: [facility] 04-07-2025 15:08-0400 Body temperature 98.6 [degF] John Majors [employer] OFFICER Work Phone: [facility] 04-07-2025 15:08-0400 Body weight 106.5 kg John Majors [employer] OFFICER Work Phone: [facility] 04-07-2025 15:08-0400 Diastolic blood pressure 84 mm[Hg] John Majors [employer] OFFICER Work Phone: [facility] 04-07-2025 15:08-0400 Heart rate 89 /min John Majors [employer] OFFICER Work Phone: [facility] 04-07-2025 15:08-0400 SaO2% (BldA) [Mass fraction] 98 % John Majors [employer] OFFICER Work Phone: [facility] 04-07-2025 15:08-0400 Systolic blood pressure 130 mm[Hg] John Majors [employer] OFFICER Work Phone: [facility] 03-17-2025 15:41-0400 Body height 157.5 cm Randa Bishop [employer] ENGINEER-ELECTRIC OPERATOR Work Phone: [facility] 03-17-2025 15:41-0400 Body mass index (BMI) [Ratio] 42.95 kg/m2 Randa Bishop [employer] ENGINEER-ELECTRIC OPERATOR Work Phone: [facility] 03-17-2025 15:41-0400 Body weight 106.5 kg Randa Bishop [employer] PL[employer] ENGINEER-ELECTRIC OPERATOR Work Phone: [facility] 03-17-2025 15:41-0400 Diastolic blood pressure 88 mm[Hg] Randa Bishop [employer]ANT ENGINEER-ELECTRIC OPERATOR Work Phone: [facility] 03-17-2025 15:41-0400 Systolic blood pressure 110 mm[Hg] Randa Bishop [employer] PLANT ENGINEER-ELECTRIC OPERATOR Work Phone: [facility] 08-15-2024 07:30-0400 Body temperature 98 [degF] DO Moustapha House Work Phone: [facility] 08-15-2024 07:30-0400 Diastolic blood pressure 78 mm[Hg] DO Moustapha House Work Phone: [facility] 08-15-2024 07:30-0400 Heart rate 85 /min DO Moustapha House Work Phone: [facility] 08-15-2024 07:30-0400 Respiratory rate 18 /min DO Moustapha House Work Phone: [facility] 08-15-2024 07:30-0400 SaO2% (BldA) [Mass fraction] 97 % DO Moustapha House Work Phone: [facility] 08-15-2024 07:30-0400 Systolic blood pressure 115 mm[Hg] DO Moustapha House Work Phone: [facility] 08-12-2024 14:59-0400 Body height 157.48 cm DO Moustapha House Work Phone: [facility] 08-11-2024 16:30-0400 Body weight 104.32 kg DO Moustapha Malone Work Phone: [facility] 07-08-2024 15:15-0400 Body mass index (BMI) [Ratio] 42.18 kg/m2 Deb Sloer MD Work Phone: [facility] 07-08-2024 15:15-0400 Body weight 104.6 kg Deb Soler MD Work Phone: [facility] 07-08-2024 15:15-0400 Diastolic blood pressure 58 mm[Hg] Deb Soler MD Work Phone: [facility] 07-08-2024 15:15-0400 Systolic blood pressure 106 mm[Hg] Deb Soler MD Work Phone: [facility] 06-16-2024 14:38-0400 Body height 157.5 cm Deb Soler MD Work Phone: [facility] 06-16-2024 14:38-0400 Body mass index (BMI) [Ratio] 41.81 kg/m2 Deb Soler MD Work Phone: [facility] 06-16-2024 14:38-0400 Body weight 103.69 kg Deb Soler MD Work Phone: [facility] 06-16-2024 14:38-0400 Diastolic blood pressure 76 mm[Hg] Deb Soler MD Work Phone: [facility] 06-16-2024 14:38-0400 Systolic blood pressure 124 mm[Hg] Deb Soler MD Work Phone: [facility] 05-19-2024 09:50-0400 Body mass index (BMI) [Ratio] 42.86 kg/m2 Deb Soler MD Work Phone: [facility] 05-19-2024 09:50-0400 Body weight 106.32 kg Deb Soler MD Work Phone: [facility] 05-19-2024 09:50-0400 Diastolic blood pressure 62 mm[Hg] Deb Soler MD Work Phone: [facility] 05-19-2024 09:50-0400 Systolic blood pressure 118 mm[Hg] Deb Soler MD Work Phone: [facility] 04-21-2024 10:19-0400 Body height 157.5 cm Deb Soler MD Work Phone: [facility] 04-21-2024 10:19-0400 Body mass index (BMI) [Ratio] 44.12 kg/m2 Deb Soler MD Work Phone: [facility] 04-21-2024 10:19-0400 Body weight 109.41 kg Deb Soler MD Work Phone: [facility] 04-21-2024 10:19-0400 Diastolic blood pressure 92 mm[Hg] Deb Soler MD Work Phone: [facility] 04-21-2024 10:19-0400 Systolic blood pressure 128 mm[Hg] Deb Soler MD Work Phone: [facility] 04-15-2024 08:13-0400 Body height 157.5 cm Deb Soler MD Work Phone: [facility] 04-15-2024 08:13-0400 Body mass index (BMI) [Ratio] 44.08 kg/m2 Deb Soler MD Work Phone: [facility] 04-15-2024 08:13-0400 Body weight 109.32 kg Deb Soler MD Work Phone: [facility] 04-15-2024 08:13-0400 Diastolic blood pressure 86 mm[Hg] Deb Soler MD Work Phone: [facility] 04-15-2024 08:13-0400 Systolic blood pressure 132 mm[Hg] Deb Soler MD Work Phone: [facility] 03-25-2024 14:18-0400 Body height 157.5 cm Deb Soler MD Work Phone: [facility] 03-25-2024 14:18-0400 Body mass index (BMI) [Ratio] 44.63 kg/m2 Deb Soler MD Work Phone: [facility] 03-25-2024 14:18-0400 Body weight 110.68 kg Deb Soler MD Work Phone: [facility] 03-03-2024 08:31-0400 Body height 157.5 cm Deb Soler MD Work Phone: [facility] 03-03-2024 08:31-0400 Body mass index (BMI) [Ratio] 44.96 kg/m2 Deb Soler MD Work Phone: [facility] 03-03-2024 08:31-0400 Body weight 111.49 kg Deb Soler MD Work Phone: [facility] 03-03-2024 08:31-0400 Diastolic blood pressure 78 mm[Hg] Deb Soler MD Work Phone: [facility] 03-03-2024 08:31-0400 Systolic blood pressure 116 mm[Hg] Deb Soler MD Work Phone: [facility] 01-09-2024 15:24-0500 Body height 157.5 cm [facility] 01-09-2024 15:24-0500 Body mass index (BMI) [Ratio] 45.18 kg/m2 [facility] 01-09-2024 15:24-0500 Body weight 112.04 kg [facility] 01-09-2024 15:24-0500 Diastolic blood pressure 82 mm[Hg] [facility] 02-28-2024 15:24-0500 Systolic blood pressure 116 mm[Hg] [facility] [employer] [facility] 06-24-2022 14:25-0400 Body height 157.48 cm Mare Rosales Other ASS[facility] Other 06-24-2022 14:25-0400 Body temperature 97.3 [degF] Mare Rosales Other [facility] Other 06-24-2022 14:25-0400 Respiratory rate 18 /min Mare Rosales Other [facility] Other 06-24-2022 14:25-0400 SaO2% (BldA) [Mass fraction] 99 % Mare Rosales Other [facility] Other Encounters Encounter Date Encounter Type Care Provider Facility Start: 06-08-2025 End: 06-08-2025 Telephone encounter Rupal Mayo MD Work Phone: [facility] Start: 05-25-2025 End: 05-25-2025 Office outpatient visit 25 minutes Leah Ricketts HNP- Work Phone: [facility] Comment on above: ZAFAR (generalized anx iety disorder) ; PTSD (post-traumatic stress disorder) ; Mild episode of recurrent major depressive disorder ; History of psychosis Start: 05-25-2025 End: 05-25-2025 ambulatory LEAH RICKETTS Not Available Start: 05-05-2025 End: 05-05-2025 Patient encounter status John Lujan MAJOR GIFTS OFFICER Work Phone: [facility] Work Phone: Start: 05-05-2025 End: 05-05-2025 Periodic preventive med est patient 18-39 yrs John Lujan MAJOR GIFTS OFFICER Work Phone: [facility] Comment on above: Routine general medi bernard examination at a health care facility (Primary Dx); Vitamin D deficiency; Morbid (severe) obesity due to excess calories ([facility]); Body mass index (BMI) 40.0-44.9, adult ([facility]); Anxiety; Bipolar affective disorder, remission status unspecified ([facility]); Other migraine without status migrainosus, not intractable ; Dermatitis; Lipid screening; Screening for diabetes mellitus; Screening for heart disease Start: 05-05-2025 End: 05-05-2025 ambulatory JOHN LUJAN Not Available Start: 05-05-2025 End: 05-05-2025 Bamboo flowsheet John Lujan MAJOR GIFTS OFFICER Work Phone: [facility] Start: 05-05-2025 End: 05-05-2025 Bamboo flowsheet John Lujan MAJOR GIFTS OFFICER Work Phone: [facility] Start: 04-27-2025 End: 04-27-2025 Bamboo flowsheet Leah Ricketts [facility]- Work Phone: [facility] Start: 04-27-2025 End: 04-27-2025 Bamboo flowsheet Leah Ricketts [facility]- Work Phone: [facility] Start: 04-27-2025 End: 04-27-2025 ambulatory LEAHRICKY RHODESTON Not Available Start: 04-07-2025 End: 04-07-2025 Office outpatient new 45 minutes John Lujan MAJOR GIF[employer] OFFICER Work Phone: [facility] Comment on above: [facility]counter to [facility] (Primary Dx); Other migraine without status migrainosus, not intractable; Anxiety; Bipolar affective disorder, remission status unspecified ([facility]); Osteoarthritis of both knees, unspecified osteoarthritis type; Vitamin D deficiency; Otitis media with effusion, bilateral; Morbid (severe) obesity due to excess calories ([facility]); Body mass index (BMI) 40.0-44.9, adult ([facility]) Start: 04-07-2025 End: 04-07-2025 ambulatory JOHN MAJORAdrien Not Available Start: 04-07-2025 End: 04-07-2025 Bamboo flowsheet John Lujan MAJOR GIFTS OFFICER Work Phone: [facility] Start: 04-07-2025 End: 04-07-2025 Bamboo flowsheet John Lujan MAJOR GIFTS OFFICER Work Phone: [facility] Start: 04-04-2025 End: 04-04-2025 Emergency department patient visit MOUSTAPHA MALONE [facility] Start: 03-17-2025 End: 03-17-2025 Patient encounter procedure Randa Bishop [employer]OGEN [employer]OWER PLANT ENGINEER-ELECTRIC OPERATOR Work Phone: [facility] Comment on above: Nexplanon removal (P rimary Dx) Start: 03-17-2025 End: 03-17-2025 ambulatory RANDA [facility] Start: 01-02-2025 ambulatory Moustapha Malone Facility: [facility] Start: 09-24-2024 End: 09-24-2024 ambulatory DO MOUSTAPHA MALONE Facility:[facility] Start: 08-12-2024 Non-patient / Non-visit DO Alejandra lyons House Work Phone: [facility] Work Phone: Start: 08-11-2024 End: 08-15-2024 Evaluation and management of inpatient DO Moustapha Malone Work Phone: [facility] [place] [address] Work Phone: Start: 08-11-2024 End: 08-11-2024 Emergency department patient visit MOUSTAPHA MALONE [facility] Start: 08-11-2024 Encounter for other general examination AZIZA MEJIA [facility] Start: 07-21-2024 Registered Recurring DO Mio Malone Work Phone: [facility] Start: 07-08-2024 End: 07-08-2024 Office outpatient visit 15 minutes Deb Soler MD Work Phone: [facility] Comment on above: Class 3 severe obesi ty due to excess calories without serious comorbidity with body mass index (BMI) of 40.0 to 44.9 in adult ([facility]) (Primary Dx) Start: 07-08-2024 End: 07-08-2024 ambulatory [facility] Start: 06-20-2024 End: 06-20-2024 Telephone encounter Deb Soler MD Work Phone: [facility] Start: 06-16-2024 End: 06-16-2024 Office outpatient visit 15 minutes Deb Soler MD Work Phone: [facility] Comment on above: Class 3 severe obesi ty due to excess calories without serious comorbidity with body mass index (BMI) of 40.0 to 44.9 in adult [place] (Primary Dx) Start: 06-16-2024 End: 06-16-2024 ambulatory [facility] Start: 05-19-2024 End: 05-19-2024 ambulatory [facility] Start: 05-19-2024 End: 05-19-2024 Office outpatient visit 15 minutes Deb Soler MD Work Phone: [facility]Gynecology Comment on above: Class 3 severe obesi ty due to excess calories with serious comorbidity and body mass index (BMI) of 45.0 to 49.9 in adult ([facility] (Primary Dx) Start: 05-10-2024 End: 05-10-2024 ambulatory [facility] Start: 05-07-2024 End: 05-07-2024 ambulatory [facility] Facility:[facility] Start: 05-02-2024 End: 05-05-2024 Emergency department patient visit RICH SARAVIA [facility] Start: 05-02-2024 End: 05-04-2024 Evaluation and management of inpatient NO PCP NO PCP [facility] Start: 04-21-2024 End: 04-21-2024 Office outpatient visit 15 minutes Deb Soler MD Work Phone: [facility] Comment on above: BMI 40.0-44.9, adult [place] (Primary Dx); Class 3 severe obesity due to excess calories with serious comorbidity and body mass index (BMI) of 45.0 to 49.9 in adult ([facility] Start: 04-21-2024 End: 04-21-2024 ambulatory [facility] Start: 04-15-2024 End: 04-15-2024 Office outpatient visit 15 minutes Deb Soler MD Work Phone: [facility] Comment on above: Encounter for survei llance of implantable subdermal contraceptive (Primary Dx) Start: 04-15-2024 End: 04-15-2024 ambulatory [facility] Start: 04-01-2024 End: 04-01-2024 ambulatory JULIANNAYuan OSEGUERA [facility] Start: 04-01-2024 End: 04-01-2024 Telemedicine consultation with patient Julianna Oseguera Work Phone: [facility] - Outpatient Diabetes and Nutrition Education Program Comment on above: BMI 40.0-44.9, adult ([facility] Start: 03-25-2024 End: 03-25-2024 Patient encounter procedure Deb Soler MD Work Phone: [facility] Comment on above: Nexplanon insertion (Primary Dx) Start: 03-25-2024 End: 03-25-2024 ambulatory [facility] Start: 03-24-2024 End: 03-24-2024 ambulatory [facility] Start: 03-03-2024 End: 03-04-2024 ambulatory [facility] Start: 03-03-2024 End: 03-11-2024 Telephone encounter Deb Soler MD Work Phone: [facility] Start: 03-03-2024 End: 03-03-2024 Office outpatient visit 15 minutes Deb Soler MD Work Phone: [facility] Comment on above: BMI 40.0-44.9, adult ([facility] (Primary Dx); Screening for STD (sexually transmitted disease) Start: 01-09-2024 End: 01-09-2024 Encounter for gynecological examination (general) (routine) without abnormal findings [facility] [employer] [facility] Work Phone: Start: 01-09-2024 End: 01-09-2024 Patient encounter procedure [facility] Start: 01-09-2024 End: 01-09-2024 Periodic preventive med est patient 18-39 yrs [facility] [employer] [facility] [place] Comment on above: Well woman exam with routine gynecological exam (Primary Dx); Cervical smear, as part of routine gynecological examination; Encounter for surveillance of injectable contraceptive; Standardized adult depression screening tool completed Start: 07-03-2022 End: 07-04-[address] MOUSTAPHA MALONE Facility: Start: 06-24-2022 End: 06-24-2022 ambulatory Mare Rosales Other [facility] Other Start: 06-24-2022 Office outpatient vi sit 25 minutes Mare Rosales [facility] Procedures Date Procedure Procedure Detail Performing Clinician Start: 04-27-2025 End: 04-27-2025 Psychiatric diagnostic eval w/medical services ZAFAR (generalized anxiety disorder) Leah Ricketts [facility] Work Phone: Comment on above: ZAFAR (generalized anx iety disorder) ; PTSD (post-traumatic stress disorder) ; Mild episode of recurrent major depressive disorder ; History of psychosis Start: 07-08-2024 Follow-up visit Follow-up DEB SOLER Start: 03-25-2024 Urine test visual color cmprsn meths Deb Soler MD Work Phone: Start: 01-09-2024 Adult depression screening assessment [facility] [employer] Start: 01-09-2024 Microscopic observat ion [Identifier] in Cervix by Cyto stain Deb Soler MD Work Phone: Start: 07-12-2020 Microscopic observat ion [Identifier] in Cervix by Cyto stain [facility] [employer] Plan of Treatment Date Care Activity Detail Author Start: 01-09-2029 Screening for malign ant neoplasm of cervix [facility] Start: 01-09-2027 Screening for malign ant neoplasm of cervix Pap Smear [facility] Start: 03-17-2026 Adult BMI Screening Adult BMI Screen ing [facility] Start: 03-17-2026 Tobacco Screening Tobacco Screening [facility] Start: 07-20-2025 End: 07-20-2025 Social Work 07/20/2025 1:30 PM EDT Social Work [facility] [address] [place] [address] Omid Mas LPC [facility] Start: 07-13-2025 Influenza vaccination [facility] Start: 07-08-2025 Adult BMI Screening Adult BMI Screen ing [facility] Start: 07-08-2025 Tobacco Screening Tobacco Screening [facility] Start: 06-29-2025 End: 06-29-2025 Telemedicine consultation with patient [facility] Start: 06-16-2025 Adult BMI Screening Adult BMI Screen ing [facility] Start: 06-16-2025 Tobacco Screening Tobacco Screening [facility] Start: 06-08-2025 End: 06-08-2025 Telemedicine consultation with patient 06/08/2025 8:00 AM EDT Telemedicine [facility] [address] [place] [address] RickettsLeah beard, PMHNP-BC [address] [place] [address] [facility] Start: 06-01-2025 End: 06-01-2025 Patient encounter procedure 06/01/2025 3:30 PM EDT Office Visit [facility] [address] [place] [phone] John Lujan NP [address] [place] [address] [facility] Start: 05-19-2025 Adult BMI Screening Adult BMI Screen ing [facility] Start: 05-19-2025 Tobacco Screening Tobacco Screening [facility] Start: 05-05-2025 End: 05-05-2025 Patient encounter procedure 05/05/2025 4:00 PM EDT Office Visit [facility] [address] [place] [phone] John Lujan NP [address] [place] [address] Arrived [facility] Comment on above: Arrived Start: 05-05-2025 End: 05-05-2026 25-hydroxyvitamin D3 [Mass/volume] in Serum or Plasma Vitamin D 25 hydroxy Lab Routine Vitamin D deficiency Expected: 05/05/2025 (Approximate), Expires: 05/05/2026 [facility] Comment on above: Expected: 05/05/2025 (Approximate), Expires: 05/05/2026 Start: 05-05-2025 End: 05-05-2026 CBC W Auto Differential panel - Blood CBC and differential Lab Routine Routine general medical examination at a health care facility Morbid (severe) obesity due to excess calories (CMS-HCC) Screening for heart disease Expected: 05/05/2025 (Approximate), Expires: 05/05/2026 [facility] Work Phone: Comment on above: Expected: 05/05/2025 (Approximate), Expires: 05/05/2026 Start: 05-05-2025 End: 05-05-2026 Comprehensive metabolic 2000 panel - Serum or Plasma Comprehensive metabolic panel Lab Routine Routine general medical examination at a health care facility Morbid (severe) obesity due to excess calories (CMS-HCC) Screening for diabetes mellitus Screening for heart disease Expected: 05/05/2025 (Approximate), Expires: 05/05/2026 [facility] Comment on above: Expected: 05/05/2025 (Approximate), Expires: 05/05/2026 Start: 05-05-2025 End: 05-05-2026 Lipid 1996 panel - Serum or Plasma Lipid panel Lab Routine Routine general medical examination at a health care facility Morbid (severe) obesity due to excess calories (CMS-HCC) Lipid screening Expected: 05/05/2025 (Approximate), Expires: 05/05/2026 [facility] Comment on above: Expected: 05/05/2025 (Approximate), Expires: 05/05/2026 Start: 05-05-2025 End: 05-05-2026 TSH W/REFLEX TO FT4 TSH W/REFLEX TO FT4 Lab Routine Anxiety Expected: 05/05/2025 (Approximate), Expires: 05/05/2026 [facility] Comment on above: Expected: 05/05/2025 (Approximate), Expires: 05/05/2026 Start: 05-04-2025 End: 05-04-2025 Patient encounter procedure 05/04/2025 3:30 PM EDT Office Visit [facility] [address] [place] [facility] [place] [phone] John Lujan NP [address] [place] [facility] [address] [facility] Start: 04-27-2025 End: 04-27-2025 Patient encounter procedure 04/27/2025 9:00 AM EDT Office Visit [facility] [address] [facility] [address] [place] [address] [facility] [address] [facility] [address] [place] [address] Anxiety; Bipolar affective disorder, remission status unspecified (HCC) [facility] Comment on above: Anxiety; Bipolar affective disorder, remission status unspecified (HCC) Start: 04-21-2025 Adult BMI Screening Adult BMI Screen ing [facility] Start: 04-21-2025 Tobacco Screening Tobacco Screening [facility] Start: 04-15-2025 Adult BMI Screening Adult BMI Screen ing [facility] Start: 04-15-2025 Tobacco Screening Tobacco Screening [facility] Start: 04-07-2025 End: 04-07-2025 Patient encounter procedure 04/07/2025 3:30 PM EDT Office Visit [facility] [address] [place] [facility] [place] [phone] John Lujan, MICHELLE [address] [place] [address] Arrived [facility] Comment on above: Arrived Start: 03-25-2025 Adult BMI Screening Adult BMI Screen ing [facility] Start: 03-25-2025 Tobacco Screening Tobacco Screening [facility] Start: 03-03-2025 Adult BMI Screening Adult BMI Screen ing [facility] Start: 03-03-2025 Tobacco Screening Tobacco Screening [facility] Start: 01-09-2025 Adult BMI Follow Up Plan Adult BMI Follow Up Plan [facility] Start: 01-09-2025 Adult BMI Screening Adult BMI Screen ing [facility] Start: 01-09-2025 Depression Screening Depression Scre ening [facility] Start: 01-09-2025 Tobacco Screening Tobacco Screening [facility] Start: 08-15-2024 [facility] Start: 08-11-2024 Referral to Parking Lot Spotter [facility] Start: 08-11-2024 Hospital admission [place] Start: 08-05-2024 End: 08-05-2024 Patient encounter procedure 08/05/2024 3:00 PM EDT Office Visit [facility] [place] [phone] Deb Soler MD [address] [place] [address] [facility] Start: 07-15-2024 End: 07-15-2024 Patient encounter procedure 07/15/2024 3:00 PM EDT Office Visit [facility] [place] [phone] Deb Soler MD [facility] [place] [address] [facility] Start: 07-13-2024 Influenza vaccination Influenza Vacc ine [facility] Start: 06-16-2024 End: 06-16-2024 Patient encounter procedure 06/16/2024 2:30 PM EDT Office Visit [facility] [address] [place] [phone] Deb Soler MD [address] [place] [address] [facility] Start: 06-16-2024 End: 06-16-2024 Telemedicine consultation with patient 06/16/2024 12:45 PM EDT Telemedicine [facility] Outpatient Diabetes and Nutrition Education Program [address] [facility] [address] [place] [phone] Julianna Oseguera, [address] [facility] [address] [place] [address] [facility] Start: 06-02-2024 End: 06-02-2024 Patient encounter procedure 06/02/2024 2:00 PM EDT Office Visit [facility] [address] [place] [phone] Alia Barrios APRN-FERN [address] [place] [address], [place] [phone] [facility] Start: 05-19-2024 End: 05-19-2024 Patient encounter procedure 05/19/2024 9:30 AM EDT Office Visit [facility] [address] [place] [phone] Deb Soler MD [address] [place] [address] [facility] Start: 04-21-2024 End: 04-21-2024 Patient encounter procedure 04/21/2024 10:15 AM EDT Office Visit [facility] [address] [place] [phone] Deb Soler MD [address] [facility] [facility] [address] [place], [place] [phone] [facility] Start: 04-15-2024 End: 04-15-2024 Patient encounter procedure 04/15/2024 3:15 PM EDT Office Visit [facility] [address] [facility] [place] [phone] Deb Soler MD [address] [address] [place], [place] [phone] [facility] Start: 04-01-2024 End: 04-01-2024 Telemedicine consultation with patient 04/01/2024 3:30 PM EDT Telemedicine [facility] Outpatient Diabetes and Nutrition Education Program [address] [facility] [address] [place] [phone] Julianna Oseguera, [address] [facility] [address] [place] [phone] [facility] Outpatient Diabetes [facility] Nutrition Education [facility] Start: 03-27-2024 End: 03-27-2024 ambulatory [facility] Start: 03-24-2024 End: 03-24-2024 Patient encounter procedure 03/24/2024 8:45 AM EDT Office Visit [facility] [address] [phone] Deb Soler MD [address] [facility] [address] [place], [place] [phone] [facility] Start: 03-03-2024 End: 03-03-2025 Chlamydia/GC by PCR urine [facility] Work Phone: Comment on above: Expected: 03/03/2024 (Approximate), Expires: 03/03/2025 Start: 01-09-2024 End: 01-09-2025 Cytopathology procedure, preparation of smear, genital source Pap Smear Pathology and Cytology Routine Cervical smear, as part of routine gynecological examination Expected: 01/09/2024 (Approximate), Expires: 01/09/2025 [employer] Work Phone: Comment on above: Expected: 01/09/2024 (Approximate), Expires: 01/09/2025 Start: 07-13-2023 Influenza vaccination Influenza Vacc ine [facility] Start: 07-12-2023 Screening for malign ant neoplasm of cervix Pap Smear [facility] Start: 2012 Screening for malign ant neoplasm of cervix Pap Smear [facility] Start: 2010 DTaP,Tdap and Td Vaccines (1 - Tdap) DTaP,Tdap and Td Vaccines (1 - Tdap) [facility] End: 01-09-2025 High risk HPV w/fartun High risk HPV w/fartun Lab Routine Cervical smear, as part of routine gynecological examination 1 Occurrences starting 01/09/2024 until 01/09/2025 [facility] Comment on above: 1 Occurrences starti ng 01/09/2024 until 01/09/2025 Patient Education Bipolar Disord er (DC) [facility] DC Instructions Know your Meds [facility] Work Phone: Patient referral [facility] Work Phone: Payers Date Payer Category Payer Private Health Insurance [id number] 2023 Unknown [id number] 2023 Unknown [id number] 2023 Self-pay [id number] 2022 Medicaid [employer] HMO [id number] 2022-Present [phone] [place] [address] [id number] 2022 Medicaid [id number] 2021 Unknown [facility] INMATE [id number] 2021-Present [phone] [place] [address] [id number] 1991 Unknown [id number]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 Vaping Use Vaping status: Never Used Substance Use Topics Alcohol use: Never Comment: caffeine intake: 200mg daily Drug use: Never Patient Health Questionnaire-9 Score: 3 ZAFAR-7 Total Score: 4 Patient Care Team: Rupla Mayo MD as PCP - General (Family Medicine) John Lujan NP as Nurse Practitioner (Family Medicine) DOMINICK Escalera as Nurse Practitioner (Behavioral Health) MENTAL STATUS EXAM Appearance Appearance: Normal grooming and hygiene. Appears stated age. Dressed appropriately for weather. Behavior Calm, cooperative, pleasant. Good posture. Psychomotor Activity Intact. No abnormal movements noted. Eye contact Good Speech Normal, clear, regular rate, rhythm and volume Affect Blunted Mood Anxious, Depressed, and Irritable Thought Process Organized, logical, and goal directed Thought Content: Denies suicidal and homicidal ideation. Perception: Denies auditory or visual hallucinations. No evidence of delusions. Denies derealization and depersonalization. Cognition Alert and attentive during visit Memory Immediate, recent and remote memory intact Insight Good. Acknowledges predominant symptoms of illness and need for treatment Judgement Good. Able to make reasonable life decisions. OBJECTIVE: Visit Vitals BP 100/82 (BP Location: Right arm, Patient Position: Sitting) Pulse 80 Wt 239 lb LMP (LMP Unknown) Comment: 5 yrs nexplanon/depo shot BMI 42.34 kg/m OB Status Unknown Smoking Status Never BSA 2.19 m Lab results: Lab Results Component Value Date GLU 106 (H) 04/04/2025 GLU Negative 04/04/2025 CALCIUM 8.9 04/04/2025 CO2 24 04/04/2025 BUN 8 08/11/2024 CREATININE 0.88 04/04/2025 Lab Results Component Value Date WBC 12.6 (H) 08/11/2024 Lab Results Component Value Date TRIG 229 (H) 03/03/2024 TRIG 123 02/01/2022 ASSESSMENT AND PLAN: Impression: Patient's symptoms consistent with MDD, ZAFAR, and PTSD. She has a history of bipolar disorder, which we discussed diagnostic criteria in detail for this. At this time, she does not fit criteria for this based on her past symptoms and duration of symptoms. She also has a history of borderline personality disorder, which we will discuss at future visits. She is actively trying to conceive. I did encourage her to get an Early Childhood Associate established as soon as possible and gave her local resource ([facility]) that could potentially help her with this. We discussed medication options for her symptoms, diagnosis, and what the risks vs benefits are for using medication during , as well as possible side effects on with use of medication during entire period. She is aware that any medication with Serotonin has the potential to affect sexual desire. She is agreeable to trying Sertraline for her symptoms. Assessment/Plan Diagnoses and all orders for this visit: ZAFAR (generalized anxiety disorder) - Ambulatory referral to Psychiatry - sertraline (Zoloft) 25 MG tablet; Take 1 tablet (25 mg) by mouth Daily for 7 days, THEN 2 tablets (50 mg) Daily for 21 days. PTSD (post-traumatic stress disorder) Mild episode of recurrent major depressive disorder - Ambulatory referral to Psychiatry History of psychosis Comments: Hospitalized in 2022 for this Treatment Plan/Recommendations: - Start Sertraline 25 mg daily for 7 days then increase to 50 mg daily for anxiety, depression, and PTSD. - Encouraged counseling for additional mental health support and treatment. - Evaluate for borderline personality disorder at future visits. - RTC in 6 weeks to re-evaluate symptoms. Discussed follow-up plan with patient, and encouraged patient to call office sooner if symptoms worsen or if any questions/concerns arise. Reviewed the risks, benefits, and potential side effects from the medications. The patient agrees the benefits outweigh the risks and agrees to treat their symptoms. Discussed treatment plan, the patient was allowed time to ask questions, and the patient agreed with the plan moving forward. Instructed patient to call office with any complications or potential side effects. Patient instructed to present to the local ER or call Suicide Hotline (084) for any psychosis, suicidal or homicidal ideation, or with any risk of harm to self or others. Patient was seen Face to Face, Total time spent with patient was 60 minutes, which includes reviewing chart documents, previous notes/records, counseling and discussion with patient and/or coordination of care as described above. documented in this encounter [facility] 04-07-2025 History of Presen t illness Narrative Images from the original note were not included. Aleena Mcguire is a 35 y.o. female presents with chief complaint of Establish Care (Previously with Dr. Malone for PCP, [facility] for mental health. ) HPI: History of Present Illness The patient presents to [facility]. She was recently in the ER due to a suspected urinary tract infection (UTI), but no abnormalities were detected. She reports a sensation of fluid accumulation in her ears and is not currently taking any allergy medications. She has not been able to get her BuSpar and Prozac refilled and is also receiving Invega injections. She has discontinued her association with [facility]. She has expressed interest in conceiving a child and is uncertain about the safety of her current medications during . She recently discontinued Nexplanon. She is on propranolol 60 mg daily for migraines and does not experience aura with her migraines. She is on meloxicam for arthritis pain in both knees and back. She was prescribed a muscle relaxer by the ER, which she has not taken. HPI Pt has not had meloxicam or propranolol in about 4 days. Over the past 2 weeks, how often have you been bothered by any of the following problems? Little interest or pleasure in doing things: Not at all Feeling down, depressed, or hopeless: Not at all Trouble falling or staying asleep, or sleeping too much: Not at all Feeling tired or having little energy: Nearly every day Poor appetite or overeating: Not at all Feeling bad about yourself - or that you are a failure or have let yourself or your family down: Not at all Trouble concentrating on things, such as reading the newspaper or watching television: Not at all Moving or speaking so slowly that other people could have noticed? Or the opposite - being so fidgety or restless that you have been moving around a lot more than usual.: Not at all Thoughts that you would be better off or hurting yourself in some way: Not at all Patient Health Questionnaire-9 Score: 3 Over the last 2 weeks, how often have you been bothered by any of the following problems? Feeling nervous, anxious, or on edge: Not at all Not being able to stop or control worrying: Not at all Worrying too much about different things: Not at all Trouble relaxing: Not at all Being so restless that it is hard to sit still: Not at all Becoming easily annoyed or irritable: Not at all Feeling afraid as if something awful might happen: Not at all ZAFAR-7 Total Score: 0 SUBJECTIVE: MEDICATIONS: Current Outpatient Medications Medication Instructions busPIRone (BUSPAR) 15 mg, 3 times daily FLUoxetine (PROZAC) 40 mg, 2 times daily meloxicam (Mobic) 15 MG tablet propranolol LA (Inderal LA) 60 MG 24 hr capsule REVIEW OF SYMPTOMS: Review of Systems Constitutional: Negative. HENT: Positive for ear pain. Respiratory: Negative. Cardiovascular: Negative. Gastrointestinal: Negative. Genitourinary: Negative. Musculoskeletal: Negative. Skin: Negative. Neurological: Negative. Psychiatric/Behavioral: Negative. OBJECTIVE: Visit Vitals BP 130/84 Pulse 89 Temp 98.6 F (Tympanic) Ht 5' 3 Wt 234 lb 12.8 oz SpO2 98% BMI 41.59 kg/m BSA 2.18 m Physical Exam Vitals and nursing note reviewed. Constitutional: Appearance: Normal appearance. HENT: Head: Normocephalic and atraumatic. Right Ear: A middle ear effusion is present. Left Ear: A middle ear effusion is present. Nose: Nose normal. Mouth/Throat: Mouth: Mucous membranes are moist. Cardiovascular: Rate and Rhythm: Normal rate and regular rhythm. Pulses: Normal pulses. Heart sounds: Normal heart sounds. Pulmonary: Effort: No respiratory distress. Breath sounds: Normal breath sounds. No stridor. No wheezing, rhonchi or rales. Musculoskeletal: Right lower leg: No edema. Left lower leg: No edema. Skin: General: Skin is warm and dry. Neurological: General: No focal deficit present. Mental Status: She is alert and oriented to person, place, and time. Psychiatric: Mood and Affect: Mood normal. Behavior: Behavior normal. ASSESSMENT AND PLAN: Assessment/Plan Problem List Items Addressed This Visit None Visit Diagnoses Encounter to establish care - Primary Encounter today as a new patient today. General health maintenance reviewed visit. Oriented to the practice. Pt made aware of practice hours and how to reach a provider after hours by calling the office phone. Advised to call with any questions or concerns. Pt also made aware that we call with results of any testing, - or + results and to call if he has not heard from us. Also advised that if medication is sent to pharmacy allow up to 3 days for prescription to be refilled. Other migraine without status migrainosus, not intractable Relevant Medications propranolol LA (Inderal LA) 60 MG 24 hr capsule Take 1 capsule (60 mg) by mouth Daily Do not crush, chew, or split. Anxiety Relevant Orders Ambulatory referral to Psychiatry Bipolar affective disorder, remission status unspecified ([facility]) Relevant Orders Ambulatory referral to Psychiatry Osteoarthritis of both knees, unspecified osteoarthritis type Has been taking Mobic 15mg for pain prescribed by Dr. Malone. Wants to stay off medication for now due to trying to get . Vitamin D deficiency Otitis media with effusion, bilateral Fluid behind tympanic membrane with no active signs of infection. Explained to patient antibiotics are not indicated as there is no active infection and this could take 4-6 weeks to resolve fully. May use flonase or antihistamine OTC to help dry up secretions. Instructed to notify office immediately if patient begins to experience and sharp ear pain or fevers. Patient verbalizes understanding. Assessment & Plan 1. Establishment of care. - Her vitamin D levels were found to be suboptimal during the previous year's assessment. - A comprehensive wellness examination will be conducted in approximately one month, which will include a re-evaluation of her vitamin D levels. - If these levels remain low, appropriate supplementation will be initiated. - Blood work will be reviewed during the wellness exam, including fasting blood work to assess cholesterol and blood sugar levels. 2. Ear fluid accumulation. - Fluid was observed behind the tympanic membrane during the examination. - She is advised to take an yyiv-rcn-gqjcwpr antihistamine such as Claritin, Zyrtec, or Nancy, and use Flonase nasal spray, administering 1 to 2 sprays per nostril daily. - The fluid in the ears may take about 4 to 6 weeks to resolve completely. - The use of Flonase and antihistamines should alleviate the fullness and itchiness in the ears. 3. Migraine. - A prescription for propranolol 60 mg daily will be provided, with a 90-day supply and refills sent to the pharmacy. - If the current medication regimen proves ineffective, alternative treatments will be considered. - A referral to neurology may be made if migraines persist despite medication adjustments. - The effectiveness of propranolol for migraine management will be monitored. 4. Arthritis. - She is currently taking meloxicam for arthritis pain in her knees and back. - She is advised to discontinue meloxicam if she becomes and switch to Tylenol. - Meloxicam will not be refilled due to potential plans. - Pain management alternatives will be discussed if needed. 5. Psychiatric medication management. - She has not been able to get her BuSpar and Prozac refilled. She was seeing psychiatry at [facility] but stopped going due to disliking their care. - She is also receiving Invega injections. - A referral to psychiatry will be made to manage her medications and provide counseling as needed. - She is advised to discuss her medications with psychiatry and REHABILITATION NURSE if she becomes . Follow-up - The patient will follow up in 1 month for a wellness exam. documented in this encounter [facility] 03-17-2025 History of Presen t illness Narrative Nexplanon Contraceptive Implant Removal Aleenaadriane Mcguire presents for the removal of the Nexplanon. Reason(s) for removal: Other side effects: inability to lose weight Her future method of contraception: no method, may desire . Informed consent obtained BP 110/88 Ht 157.5 cm (5' 2 ) Wt 106.5 kg (234 lb 12.8 oz) BMI 42.95 kg/m Procedure: Implant identified. Left upper arm prepped with betadine x 3. 1 mL 1% xylocaine injected at planned incision site. A 2mm incision was performed with a #15 scalpel at the distal end of implant. The implant was removed using pop out technique. The implant was inspected and found to be intact and complete. Steri strips and a pressure dressing were applied to the site. Removal was confirmed with the patient. After removal instructions were given and verbally reviewed with the patient who acknowledged her understanding. Patient tolerated procedure well yes 1. Nexplanon removal (Primary) Discussed with patient that fertility returns quickly after removal and to use a barrier method if not ready for . Discussed starting a vitamin. Call the office for: Fever >100.4 F, chills Redness, warmth, drainage, or excessive pain to implant site RESHMA Del Rio APRN-CNP 03/17/25 1611 documented in this encounter [facility] 03-17-2025 Instructions MARTÍNEZ Espinoza - 03/17/2025 3:15 PM EDT Call the office for: Fever >100.4 F, chills Redness, warmth, drainage, or excessive pain to implant site documented in this encounter [facility] 02-23-2025 Note Entered by LUZ MARIA MALONE DO on February 23, 2025 12:55:00 EDT From: MOUSTAPHA MALONE DO To: [facility] Sent: 02/23/2025 12:55:00 EDT Subject: Medication Management Submitted: Complete:propranolol (propranolol 60 mg oral capsule, extended release) Signed by MOUSTAPHA MALONE DO 02/23/2025 12:55:00 EDT Submitted: Complete:meloxicam (meloxicam 15 mg oral tablet) Signed by MOUSTAPHA MALONE DO 02/23/2025 12:55:00 EDT Approved meloxicam (meloxicam 15 mg tablet) TAKE 1 TABLET BY MOUTH EVERY DAY Qty: 30 tab(s) Days Supply: 30 Refills: 2 Substitutions Allowed Route To Pharmacy - [facility] Approved propranolol (propranolol ER 60 mg capsule,24 hr,extended release) TAKE 1 CAPSULE BY MOUTH EVERY DAY Qty: 30 cap(s) Days Supply: 30 Refills: 2 Substitutions Allowed Route To Pharmacy - [facility] From: [facility] To: MOUSTAPHA MALONE DO Sent: February 23, 2025 9:30:23 AM CDT Subject: Medication Management Due: February 24, 2025 12:02:25 AM CDT On Hold Pending Signature Drug: meloxicam (meloxicam 15 mg oral tablet), TAKE 1 TABLET BY MOUTH DAILY Quantity: 30 tab(s) Days Supply: 30 Refills: 2 Substitutions Allowed Notes from Pharmacy: This prescription was filled on 09/29/2024. Any refills authorized will be placed on file. Dispensed Drug: meloxicam (meloxicam 15 mg oral tablet), TAKE 1 TABLET BY MOUTH EVERY DAY Quantity: 30 tab(s) Days Supply: 30 Refills: 2 Substitutions Allowed Notes from Pharmacy: On Hold Pending Signature Drug: propranolol (propranolol 60 mg oral capsule, extended release), TAKE 1 CAPSULE BY MOUTH DAILY Quantity: 30 cap(s) Days Supply: 30 Refills: 2 Substitutions Allowed Notes from Pharmacy: This prescription was filled on 09/29/2024. Any refills authorized will be placed on file. Dispensed Drug: propranolol (propranolol 60 mg oral capsule, extended release), TAKE 1 CAPSULE BY MOUTH EVERY DAY Quantity: 30 cap(s) Days Supply: 30 Refills: 2 Substitutions Allowed Notes from Pharmacy: [facility] 10-19-2024 Note Entered by LUZ MARIA MALONE DO on October 19, 2024 15:54:32 EST From: MOUSTAPHA MALONE DO To: [facility] Sent: 10/19/2024 15:54:32 EST Subject: Medication Management Submitted: Complete:propranolol (propranolol 60 mg oral capsule, extended release) Signed by MOUSTAPHA MALONE DO 10/19/2024 15:54:00 EST Submitted: Complete:meloxicam (meloxicam 15 mg oral tablet) Signed by MOUSTAPHA MALONE DO 10/19/2024 15:54:00 EST Submitted: Complete:propranolol (Inderal LA 80 mg oral capsule, extended release) Signed by MOUSTAPHA MALONE DO 10/19/2024 15:54:00 EST Approved with modifications: meloxicam (meloxicam 15 mg tablet) TAKE 1 TABLET BY MOUTH DAILY Qty: 30 tab(s) Days Supply: 30 Refills: 2 Substitutions Allowed Route To Pharmacy - [facility] Note from Pharmacy: This prescription was filled on 09/29/2024. Any refills authorized will be placed on file. Approved with modifications: propranolol (propranolol ER 60 mg capsule,24 hr,extended release) TAKE 1 CAPSULE BY MOUTH DAILY Qty: 30 cap(s) Days Supply: 30 Refills: 2 Substitutions Allowed Route To Pharmacy - [facility] Note from Pharmacy: This prescription was filled on 09/29/2024. Any refills authorized will be placed on file. From: [facility] To: MOUSTAPHA MALONE DO Sent: October 19, 2024 7:02:59 AM WEDDING DESIGNER Subject: Medication Management Due: October 20, 2024 12:30:24 AM WEDDING DESIGNER On Hold Pending Signature Drug: meloxicam (meloxicam 15 mg oral tablet), TAKE 1 TABLET BY MOUTH DAILY Quantity: 30 tab(s) Days Supply: 30 Refills: 2 Substitutions Allowed Notes from Pharmacy: Dispensed Drug: meloxicam (meloxicam 15 mg oral tablet), TAKE 1 TABLET BY MOUTH DAILY Quantity: 30 tab(s) Days Supply: 30 Refills: 2 Substitutions Allowed Notes from Pharmacy: This prescription was filled on 09/29/2024. Any refills authorized will be placed on file. On Hold Pending Signature Drug: propranolol (propranolol 60 mg oral capsule, extended release), TAKE 1 CAPSULE BY MOUTH DAILY Quantity: 30 cap(s) Days Supply: 30 Refills: 2 Substitutions Allowed Notes from Pharmacy: Dispensed Drug: propranolol (propranolol 60 mg oral capsule, extended release), TAKE 1 CAPSULE BY MOUTH DAILY Quantity: 30 cap(s) Days Supply: 30 Refills: 2 Substitutions Allowed Notes from Pharmacy: This prescription was filled on 09/29/2024. Any refills authorized will be placed on file. [facility] 08-15-2024 Discharge summary Note Date/Time August 15, 2024 12:00pm [facility] [address] [place] [address] Discharge Summary Signed Patient: Aleena Mcguire MR#: [id number] : 1990 Acct:[id number] Age/Sex: 34 / F Adm Date: 4 Loc: Room: [address] [place] [address]: Lucas Nuñez MD Copies to: Lucas Nuñez MD NO FAMILY PHYSICIAN~ Providers Date of Discharge: 08/15/24 Discharging Provider: Lucas Nuñez Primary Care Provider: PHYSICIAN NO FAMILY Consults: 08/11/24 16:36 Consult to Case Management Routine Comment: CM Reason for Consult: Parking Lot Spotter-General Discharge Diagnosis (1) Schizoaffective disorder: Final Diagnosis Final Discharge Diagnosis: Schizoaffective disorder Summary Hospital Course Hospital course: Ms. Mcguire is a 34 year old female Who presented due to concern for depression and suicidal thoughts. Upon assessment, patient reported that she has been struggling with her depression for 2 to 3 weeks. She reported that she has been feeling anxious andirritable. She stated that she does not feel like herself and feels like thingsare off. She stated that she only had a recent move in March and that is the onlymajor stressor that she has had. She reported that she has been med compliant. She denied any current hallucinations. She reported that her suicidal thoughts are not going away and have been ongoing. She reported that she has been feeling angry and irritable and feels like she needs to lash out at people. 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 She stated that she has noticed that her sleep hasbeen disrupted and her appetite has been on and off. Past psych history: Schizoaffective disorder Past hospitalizations: Reported prior psychiatric hospitalizations Past suicide attempts: Denies Family psych history: Mom has anxiety and depression Previous medications: Abilify Alcohol and drug use: Denied any significant issues Living: With family Employment: employed Patient was continued on her home medications. Her dose of Vraylar was increased and doxepin scheduled at bedtime is added to help manage her depression. Her Invega Sustenna was switched to every 21 days and she received her Invega Sustenna on 08/12/2024. She had gradual improvement of her symptoms as time went on. She started to socialize with peers. She was no longer feeling depressed or suicidal. She denied any hallucinations and did not reportinternally stimulated. She did not exhibit any behavior concerning for suicidality during her hospital course. She did not have any conflict with peers or staff. On the day of discharge, she reported she was doing good. She denied any depression or suicidality. She was comfortable with the discharge plan home and following up with outpatient services. She was future oriented andstated that she wanted to make sure that things were okay with her apartment. Condition Condition at Discharge: Stable Status at Discharge Cognitive/behavioral status at discharge: Mental Status Exam: Appearance: grossly normal Mental Status: mental status grossly normal Mood: Euthymic mood Affect: Normal affect Speech and Movement: speech normal, movement normal Attitude: cooperative Thought Process: normal Thought Content: Denied hallucinations, no homicidality and no suicidality Insight: Good Judgment: Good Functional status at discharge: independent ambulation Overall status at discharge: patient is back to baseline Time Spent with Patient Time spent providing/coordinating discharge services (# min): 30 Discharge Plan Discharge Plan Patient Disposition: Home Activity: No Activity Restriction Diet: Regular Additional Instructions: Important Contact Information You can call [facility] at [phone] any time day or night if you have emergent questions or question regarding discharge instructions. If at any time you are feeling an increase inyour psychiatric symptoms, call your physician or behavioral healthcare provider. If any time you have thoughts of harming yourself or others contact one of the following: Call 8 (available 04/06) Crisis Text Line (available 04/06) text 4HOPE to [phone] [facility] Hope Line (available 8 a.m. Midnight) call [phone] ([phone]) Regular Diet No Activity Restrictions Instructions: Bipolar Disorder (DC), [facility] Behavioral Health DC Instructions, Know your Meds Stand Alone Forms: Work/School Release Form Prescriptions: New Vraylar 3 mg capsule 3 mg PO DAILY Qty: 30 0RF trazodone 50 mg Tablet 50 mg PO QHS PRN (Reason: Insomnia) Qty: 30 0RF doxepin 25 mg Capsule 25 mg PO QHS 30 Days Qty: 30 0RF olanzapine 5 mg Tablet 5 mg PO Q6H PRN (Reason: Agitation) Qty: 30 0RF Invega Sustenna 234 mg/1.5 mL Syringe 234 mg IM Q21D Qty: 0 0RF Continued propranolol 60 mg capsule,extended release 24 hr 60 mg PO DAILY buspirone 15 mg Tablet 15 mg PO TID 14 Days Qty: 42 1RF meloxicam 15 mg tablet 15 mg PO DAILY Patient Comments: TAKE 1 TABLET BY MOUTH EVERY DAY fluoxetine 40 mg capsule 80 mg PO DAILY 30 Days Qty: 60 0RF doxepin 10 mg capsule 10 mg PO TID PRN (Reason: anxiety) Discontinued Vraylar 1.5 mg capsule 1.5 mg PO DAILY Invega Sustenna 234 mg/1.5 mL syringe 234 mg IM Q30D Follow Up: Moustapha Jang [Other] (Please contact for any medical needs or concerns) [facility] [Outside] - 08/18/24 (telephonic nurse case manager will call you, if you miss the call please return it as soon as possible) Exam Physical Exam Vital Signs: Temp Pulse Resp BP Pulse Ox O2 Del Method 98 F 85 18 115/78 97 Room Air 08/15/24 07:30 08/15/24 07:30 08/15/24 07:30 08/15/24 07:30 08/15/24 07:30 08/15/24 07:30 Documented By: Lucas Nuñez MD 08/15/24 1159 Signed By: <Electronically signed by Lucas Nuñez MD> 08/15/[address] [facility] Work Phone: 1(921) 212-788110-04-2024 Progress note Author Lucas Nuñez [facility] August 15, 2024 11:59am Note Date/Time August 15, 2024 9: 55am [facility] [address] [place] [address] Psychiatry Progress Note Signed Patient: Aleena Mcguire MR#: [id number] : 1990 Acct:[id number] Age/Sex: 34 / F Adm Date: 4 Loc: Room: [address] [place] [address] Type : ADM IN Attending Dr: Lucas Nuñez MD Copies to: ~ Date of Service: 08/15/2024 Subjective Subjective Narrative: Ms. Mcguire reported that she is doing quite well today. She says she is actuallyfeeling much better than when she got here, though still a little bit sleepy. Denied any side effects with current medication. She says she has a little bit of trouble falling asleep last night but she slept very well afterwards. She says her latest medication regimen feels very good to her, and thinks she is doing much better. She lives at home with her boyfriend and daughter, and feelssafe in her home. 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 She asked us upon discharge if we can give her a note to get her out, and said she would consider changing work. Otherwise, she says she is feeling quite goodand wants to consider leaving. Mental Status Exam: Appearance: Grossly normal Mental Status: mental status grossly normal Mood: Euthymic Affect: Normal affect Speech and Movement: speech normal, movement normal Attitude: cooperative Thought Process: normal Thought Content: Denied hallucinations, no homicidality, reported improving suicidality Insight: fair Judgment: fair Patient was personally seen by me on the day of the encounter. I reviewed the history and performed the pepper elements of the physical examination. I formulated the plan of care and confirmed this with the resident as noted below. Exam Physical Exam Vital Signs: Temp Pulse Resp BP Pulse Ox O2 Del Method 98 F 85 18 115/78 97 Room Air 08/15/24 07:30 08/15/24 07:30 08/15/24 07:30 08/15/24 07:30 08/15/24 07:30 08/15/24 07:30 Abnormal Involuntary Movement Dental Status Are dentures usually worn?: No Assessment/Plan Assessment/Plan (1) Schizoaffective disorder: Plan * Continue Invega Sustenna every 3 weeks * Continue Prozac 80 mg daily, BuSpar 15 mg 3 times a day, doxepin 25 mg at bedtime, Vraylar 3 mg daily * Continue to monitor mental status * Encourage group participation and medication compliance * Risk benefits alternatives explained Documented By: Lucas Nuñez MD 08/15/24 0952 Signed By: <Electronically signed by Lucas Nuñez MD> 08/15/24 1159 <Electronically signed by Asuncion Lala> 08/15/24 [address] [facility] Work Phone: 1(738) 293-228210-03-2024 Progress note Author Lucas Nuñez [facility] August 14, 2024 11:52am Note Date/Time August 14, 2024 9: 45am [facility] [address] [place] [address] Psychiatry Progress Note Signed Patient: Aleena Mcguire MR#: [id number] : 1990 Acct:[id number] Age/Sex: 34 / F Adm Date: 4 Loc: Room: [address] [place] [address] Type : ADM IN Attending Dr: Lucas Nuñez MD Copies to: ~ Date of Service: 08/14/2024 Subjective Subjective Narrative: Ms. Mcguire reported that she is doing all right today. She was seen sleeping in bed at 9:30 AM. Denied any side effects with current medication. Though she said she did not sleep great last night even though she is on trazodone and Zyprexa. She still is in agreement with the plan to increase her injections of Invega Sustenna to every 3 weeks. She says she ate well and is feeling overall little better. Says her depression is a 5 out of 10 and anxiety at 3 out of 10. She also inquired about getting Zyprexa at home to help with her sleep. Mental Status Exam: Appearance: grossly normal Mental Status: mental status grossly normal Mood: dysthymic mood Affect: Somewhat flat affect Speech and Movement: speech normal, movement normal Attitude: cooperative Thought Process: normal Thought Content: Denied hallucinations, no homicidality, reported improving suicidality Insight: fair Judgment: fair Patient was personally seen by me on the day of the encounter. I reviewed the history and performed the pepper elements of the physical examination. I formulated the plan of care and confirmed this with the resident as noted below. Exam Physical Exam Vital Signs: Temp Pulse Resp BP Pulse Ox O2 Del Method 98.1 F 16 L 16 114/77 99 Room Air 08/14/24 07:30 08/14/24 07:30 08/14/24 07:30 08/14/24 07:30 08/14/24 07:30 08/14/24 07:30 Abnormal Involuntary Movement Dental Status Are dentures usually worn?: No Assessment/Plan Assessment/Plan (1) Schizoaffective disorder: Plan * Continue Invega Sustenna every 3 weeks * Continue Prozac 80 mg daily, BuSpar 15 mg 3 times a day, doxepin 25 mg at bedtime, Vraylar 3 mg daily * Continue to monitor mental status * Encourage group participation and medication compliance * Risk benefits alternatives explained Documented By: Lucas Nuñez MD 08/14/24 0942 Signed By: <Electronically signed by Lucas Nuñez MD> 08/14/24 1152 <Electronically signed by Asuncion Lala> 08/14/24 1139 [facility] Work Phone: 1(188) 800-499110-02-2024 Progress note Author Lucas Nuñez [facility] August 13, 2024 11:37am Note Date/Time August 13, 2024 11 :37am [facility] [address] [place] [address] Psychiatry Progress Note Signed Patient: Aleena Mcguire MR#: [id number] : 1990 Acct:[id number] Age/Sex: 34 / F Adm Date: 4 Loc: Room: 2Y2268-4 Type : ADM IN Attending Dr: Lucas Nuñez MD Copies to: ~ Date of Service: 08/13/2024 Subjective Subjective Narrative: Ms. Mcguire reported that she is doing all right today. She denied any side effects with the increase of Vraylar. We discussed about changing her Invega Sustenna to every 3 weeks which she is in agreement with. She denied any hallucinations and rated her current depression as 8 out of 10. She reported that when she was taking the Invega Trinza things are under better control. Shestated that she slept well overnight with the doxepin at bedtime. Mental Status Exam: Appearance: grossly normal Mental Status: mental status grossly normal Mood: dysthymic mood Affect: dysphoric affect Speech and Movement: speech normal, movement normal Attitude: cooperative Thought Process: normal Thought Content: Denied hallucinations, no homicidality, reported improving suicidality Insight: fair Judgment: fair Exam Physical Exam Vital Signs: Temp Pulse Resp BP Pulse Ox O2 Del Method 97.9 F 92 16 121/77 96 Room Air 08/13/24 07:30 08/13/24 07:30 08/13/24 07:30 08/13/24 07:30 08/13/24 07:30 08/13/24 09:00 Abnormal Involuntary Movement Dental Status Are dentures usually worn?: No Assessment/Plan Assessment/Plan (1) Schizoaffective disorder: Plan Still reported some depression but denied any hallucinations Will dose Invega Sustenna 234 mg a day and it change to every 3 weeks Continue Prozac 80 mg daily, BuSpar 15 mg 3 times a day, doxepin 25 mg at bedtime, Vraylar 3 mg daily Continue to monitor mental status Encourage group participation and medication compliance Risk benefits alternatives explained Documented By: Lucas Nuñez MD 08/13/241134 Signed By: <Electronically signed by Lucas Nuñez MD> 08/13/241136 [facility] Work Phone: 1(733) 919-182610-01-2024 History and physical note Author Lucas Nuñez [facility] August 12, 2024 12:01pm Note Date/Time August 12, 2024 12 :00pm [facility] [address] [place] [address] Psychiatry H&P Signed Patient: Aleena Mcguire#: [id number] : 1990 Acct:[id number] Age/Sex: 34 / F Adm Date: 4 Loc: 1S Room: 3V6164-9 Type: ADM IN Attending Dr: Lucas Nuñez MD Copies to: Lucas Nuñez MD NO FAMILY PHYSICIAN~ Date of Service: 08/12/2024 HPI History of Present Illness History of present illness: Ms. Mcguire is a 34 year old female Who presented due to concern for depression and suicidal thoughts. Upon assessment, patient reported that she has been struggling with her depression for 2 to 3 weeks. She reported that she has been feeling anxious andirritable. She stated that she does not feel like herself and feels like thingsare off. She stated that she only had a recent move in March and that is the onlymajor stressor that she has had. She reported that she has been med compliant. She denied any current hallucinations. She reported that her suicidal thoughts are not going away and have been ongoing. She reported that she has been feeling angry and irritable and feels like she needs to lash out at people. 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 She stated that she has noticed that her sleep hasbeen disrupted and her appetite has been on and off. Past psych history: Schizoaffective disorder Past hospitalizations: Reported prior psychiatric hospitalizations Past suicide attempts: Denies Family psych history: Mom has anxiety and depression Previous medications: Abilify Alcohol and drug use: Denied any significant issues Living: With family Employment: employed Review of symptoms: Constitutional: Denies chills and Denies fever(s) Eyes: Denies change in vision ENT: Denies abnormal hearing Cardiovascular: Denies chest pain Respiratory: Denies chest congestion and Denies cough Gastrointestinal: Denies change in bowel habits Genitourinary: Denies dysuria Musculoskeletal: Denies atrophy and Denies myalgias Integumentary/Breasts: Denies dry skin Neurologic: Denies abnormal gait and Denies abnormal movements Psychiatric: Reports depression and suicidal ideation Physical exam: Const: cooperative Nutritional Appearance: average body habitus Orientation: alert, awake and oriented x3 HEENT: Head normal to inspection, hearing grossly normal bilaterally, external nose normal, face symmetric Eyes: appearance normal, both eyes and all related structures, sclerae normal Neck: normal visual inspection and full ROM Resp: normal respiratory effort, able to speak in complete sentences and symmetric chest movement Cardio: regular rate GI: normal to inspection and non-distended : deferred Skin: no rashes or lesions noted Neuro: CNI: Normal olfaction CNI: normal olfaction CNII: Visual ramirez intact, CNIII,IV,: EOM intact, no nystagmus. Pupils equal, round, reactive to light and accommodation, CNV: Sensation intact to light touch, CNVII: Raises eyebrows, smile/frown, puff out cheeks symmetrically, CNVIII: Hearing intact bilaterally, CNIX,X: Voice normal, soft palate elevation normal, symmetrical, CNXI: Shoulder shrug strong, equal bilaterally, CNXII: Tongue protrusion midline, movement symmetrical. Extrem: normal to inspection and full ROM Mental Status Exam: Appearance: grossly normal Mental Status: mental status grossly normal Mood: dysthymic mood Affect: dysphoric affect Speech and Movement: speech normal, movement normal Attitude: cooperative Thought Process: normal Thought Content: Denied hallucinations, no homicidality, reported suicidality Insight: fair Judgment: fair [facility] Medical History Arthritis delivery delivered Major depressive disorder Preeclampsia Family History Mother Hypertension Family/Other Suicide Mother Hypertension Social History Smoking Status: Never smoker Tobacco Type: cigarettes Substance Use Type: Marijuana Social History Comments: Was living with boyfriend, he broke up with her.Going to stay at Mom's. Meds Medications and Allergies Allergies latex Allergy (Unknown, Verified 08/11/24 20:21) Rash, rash/swelling hydroxyzine [From Vistaril] Allergy (Verified 08/11/24 20:21) Drowsy Home Medications propranolol 60 mg capsule,24 hr,extended release 60 mg PO DAILY 07/02/20 [History Confirmed 08/11/24] meloxicam 15 mg tablet 15 mg PO DAILY 05/11/21 [History Confirmed 08/11/24] fluoxetine 40 mg capsule 80 mg (2 x 40 mg) PO DAILY 30 days #60 caps 05/14/21 [Rx Confirmed 08/11/24] buspirone 15 mg tablet 15 mg PO TID 14 days #42 tabs 08/11/21 [Rx Confirmed 08/11/24] cariprazine 1.5 mg capsule (Vraylar) 1.5 mg PO DAILY 08/11/24 [History Confirmed 08/11/24] doxepin 10 mg capsule 10 mg PO TID PRN anxiety 08/11/24 [History Confirmed 08/11/24] paliperidone palm (3 month) 273 mg/0.88 mL intramuscular syringe (Invega Trinza)273 mg IM [id number] 08/11/24 [History Confirmed 08/11/24] Exam Physical Exam Vital Signs: Temp Pulse Resp BP Pulse Ox O2 Del Method 98.2 F 67 18 122/79 99 Room Air 08/12/24 07:30 08/12/24 07:30 08/12/24 07:30 08/12/24 07:30 08/12/24 07:30 08/12/24 07:30 Abnormal Involuntary Movement Dental Status Are dentures usually worn?: No Assessment/Plan (1) Schizoaffective disorder: Plan Patient presenting due to concern for depression and suicidal thoughts. Also reported irritability Last Invega Sustenna was on 07/21/2024 and was 234 mg Continue Prozac 80 mg daily, BuSpar 15 mg 3 times a day We will just doxepin 25 mg at bedtime to help with sleep and depression Increase Vraylar 3 mg daily Continue to monitor mental status Encourage group participation and medication compliance Risk benefits alternatives explained Documented By: Lucas Nuñez MD 08/12/24 1154 Signed By: <Electronically signed by Lucas Nuñez MD> 08/12/24 1209 [facility] Work Phone: [phone]) 764-433109-05-2024 NoteEntered by MOUSTAPHA MALONE DO on July 17, 2024 12:09:17 EDT From: MOUSTAPHA MALONE DO To: [id number] Sent: 07/17/2024 12:09:17 EDT Subject: Medication Management Submitted: Complete:meloxicam (meloxicam 15 mg oral tablet) Signed by MOUSTAPHA MALONE DO 07/17/2024 12:09:00 EDT Submitted: Complete:propranolol (propranolol 60 mg oral capsule, extended release) Signed by MOUSTAPHA MALONE DO 07/17/2024 12:09:00 EDT Approved with modifications: propranolol (propranolol ER 60 mg capsule,24 hr,extended release) TAKE 1 CAPSULE BY MOUTH DAILY Qty: 30 cap(s) Days Supply: 30 Refills: 2 Substitutions Allowed Route To Pharmacy - [id number] Approved with modifications: meloxicam (meloxicam 15 mg tablet) TAKE 1 TABLET BY MOUTH DAILY Qty: 30 tab(s) Days Supply: 30 Refills: 2 Substitutions Allowed Route To Pharmacy - [id number] From: [facility] To: MOUSTAPHA MALONE DO Sent: July 17, 2024 10:18:43 AM CDT Subject: Medication Management Due: July 18, 2024 12:17:48 AM CDT On Hold Pending [facility] Drug: propranolol (propranolol 60 mg oral capsule, extended release), 1 cap(s) Oral Daily Quantity: 30 cap(s) Days Supply: 0 Refills: 1 Substitutions Allowed Notes from Pharmacy: Dispensed Drug: propranolol (propranolol 60 mg oral capsule, extended release), TAKE 1 CAPSULE BY MOUTH DAILY Quantity: 30 cap(s) Days Supply: 30 Refills: 2 Substitutions Allowed Notes from Pharmacy: On Hold Pending [facility]: meloxicam (meloxicam 15 mg oral tablet), 1 tab(s) Oral Daily,Instr:TAKE 1 TABLET BY MOUTH ONCE DAILY Quantity: 30 tab(s) Days Supply: 0 Refills: 1 Substitutions Allowed Notes from Pharmacy: Dispensed Drug: meloxicam (meloxicam 15 mg oral tablet), TAKE 1 TABLET BY MOUTH DAILY Quantity: 30 tab(s) Days Supply: 30 Refills: 2 Substitutions [id number] History of Present illness Narrative* Deb Soler MD - 07/08/2024 3:15 PM EDT Aleena Mcguire is a 34 y.o.female. No LMP recorded. Patient has had an implant.. She presents today for follow up on weight loss with semaglutide. Has lost 16 lb total Has not lost on 1.8 mg subcu per week No negative side effects We will escalate dose Current contraception:Nexplanon OB History 1 Para 1 Term 0 1 AB Living 1 SAB IAB Ectopic Multiple Live Births 1 MEDICAL HX Past Medical History: Diagnosis Date Anxiety Bipolar disorder (CMS-HCC) Migraine 01/09/2024 PMDD (premenstrual dysphoric disorder) SURGICAL HX Past Surgical History: Procedure Laterality Date SECTION FAMILY HX Family History Problem Relation Age of Onset Cancer Maternal Grandmother lung No Known Problems Father Hypertension Mother Diabetes Mother Stroke Neg Hx Ovarian cancer Neg Hx Colon cancer Neg Hx Breast cancer Neg Hx MEDS Current Outpatient Medications Medication Sig Dispense Refill busPIRone (BUSPAR) 10 mg tablet Take 1 tablet (10 mg total) by mouth in the morning and 1 tablet (10 mg total) before bedtime. doxepin (SINEquan) 10 mg capsule Take 1 capsule (10 mg total) by mouth 3 (three) times a day Indications: anxious. 3 times a day as needed for anxiety. etonogestreL (NEXPLANON) 68 mg implant 1 each (68 mg total) by subdermal route once. FLUoxetine (PROzac) 40 mg capsule Take 1 capsule (40 mg total) by mouth in the morning and 1 capsule (40 mg total) before bedtime. INVEGA TRINZA 819 mg/2.63 mL syringe injection INJECT 2.63 mls INTRAMUSCULARLY once EVERY 3 (THREE)months meloxicam (MOBIC) 15 mg tablet TAKE 1 TABLET BY MOUTH DAILY multivit with calcium,iron,min (MULTIPLE VITAMIN, WOMENS ORAL) Take by mouth. propranolol LA (INDERAL LA) 60 mg 24 hr capsule TAKE 1 CAPSULE BY MOUTH DAILY No current facility-administered medications for this visit. ALLERGIES Allergies Allergen Reactions Hydroxyzine Latex Review of Systems Review of Systems Objective Wt 104.6 kg (230 lb 9.6 oz) BMI 42.18 kg/m Physical Exam BP 106/58 Wt 104.6 kg (230 lb 9.6 oz) BMI 42.18 kg/m Physical Exam GEN AAOX3, NAD HEENT UNREMARKABLE HEART RRR LUNGS CTAB ABD BENIGN, OBESE, NTND PELVIS: Deferred RECTAL DEFERRED EXTREM NO CCE, NO CALF TENDERNESS Assessment/Plan: Obesity BMI 42.18 On semaglutide 1.8 mg per week subQ We will escalate dose No negative effects Return to office 4 weeks MD Rosalva GARCIA RN documented in this encounterSumma Health08-09-2024 Miscellaneous Notes* Telephone Encounter - Shannan Brown - 06/20/2024 10:27 AM EDT Patient states [facility] has not received latest RX. Patient states [facility] said they will take a phone order. Please call [facility] at [phone]. Thank you * Telephone Encounter - Courtney Hoang CMA - 06/20/2024 10:27 AM EDT Called pharmacy and gave verbal order to pharmacist documented in this encounterSumma Health08-09-2024 Telephone encounter Note* Telephone Encounter - Shannan Brown - 06/20/2024 10:27 AM EDT Patient states [facility] has not received latest RX. Patient states [facility] said they will take a phone order. Please call [facility] at [phone]. Thank you [facility]08-09-2024 Telephone encounter Note* Telephone Encounter - Courtney Hoang CMA - 06/20/2024 10:27 AM EDT Called pharmacy and gave verbal order to pharmacist [facility]08-05-2024 History of Present illness Narrative* Deb Soler MD - 06/16/2024 2:30 PM EDT Subjective Patient ID: Aleena Mcguire is a 34 y.o. female. Pt is currently on Semaglutide 1.2mg dose and weight went from 234# on 05/19/24 to 228# today. Pt denies any side effects and is happy with medication and weight loss. HAPPY WITH SEMAGLUTIDE AND DESIRES TO CONTINUE WE WILL ESCALATE THE DOSE FROM 1.2-1.8 Chief Complaint Chief Complaint Patient presents with Weight Loss HPI Past Medical History Past Medical History: Diagnosis Date Anxiety Bipolar disorder (CMS-HCC) Migraine 01/09/2024 PMDD (premenstrual dysphoric disorder) Past Surgical History Past Surgical History: Procedure Laterality Date SECTION Family History Family History Problem Relation Age of Onset Cancer Maternal Grandmother lung No Known Problems Father Hypertension Mother Diabetes Mother Stroke Neg Hx Ovarian cancer Neg Hx Colon cancer Neg Hx Breast cancer Neg Hx Social History Social History Socioeconomic History Marital status: Legally Spouse name: Not on file Number of children: Not on file Years of education: Not on file Highest education level: Not on file Occupational History Not on file Tobacco Use Smoking status: Former Smokeless tobacco: Never Vaping Use Vaping status: Some Days Substances: THC Devices: Refillable tank Substance and Sexual Activity Alcohol use: Not Currently Comment: occasional Drug use: Yes Types: Marijuana Comment: daily marijuanna Sexual activity: Yes Partners: Male control/protection: Injection Comment: current partner x5 years Other Topics Concern Not on file Social History Narrative Not on file Social Determinants of Health Financial Resource Strain: Not on file Food Insecurity: No Food Insecurity (05/19/2024) Hunger Screening Food Insecurity - Worry: Never True Food Insecurity - Inability: Never True Recent Concern: Food Insecurity - Food Insecurity Present (04/01/2024) Hunger Screening Food Insecurity - Worry: Sometimes True Food Insecurity - Inability: Sometimes True Transportation Needs: No Transportation Needs (05/02/2024) PRAPARE - Transportation Lack of Transportation (Medical): No Lack of Transportation (Non-Medical): No Physical Activity: Not on file Stress: Not on file Social Connections: Not on file Interpersonal Safety: Not At Risk (05/02/2024) Humiliation, Afraid, Rape, and Kick questionnaire Fear of Current or Ex-Partner: No Emotionally Abused: No Physically Abused: No Sexually Abused: No Housing Instability: Low Risk (05/02/2024) Housing Instability Housing Instability: No Allergies Allergies Allergen Reactions Hydroxyzine Latex Current Medications Current Outpatient Medications Medication Sig Dispense Refill busPIRone (BUSPAR) 10 mg tablet Take 1 tablet (10 mg total) by mouth in the morning and 1 tablet (10 mg total) before bedtime. doxepin (SINEquan) 10 mg capsule Take 1 capsule (10 mg total) by mouth 3 (three) times a day Indications: anxious. 3 times a day as needed for anxiety. etonogestreL (NEXPLANON) 68 mg implant 1 each (68 mg total) by subdermal route once. FLUoxetine (PROzac) 40 mg capsule Take 1 capsule (40 mg total) by mouth in the morning and 1 capsule (40 mg total) before bedtime. INVEGA TRINZA 819 mg/2.63 mL syringe injection INJECT 2.63 mls INTRAMUSCULARLY once EVERY 3 (THREE)months meloxicam (MOBIC) 15 mg tablet TAKE 1 TABLET BY MOUTH DAILY multivit with calcium,iron,min (MULTIPLE VITAMIN, WOMENS ORAL) Take by mouth. propranolol LA (INDERAL LA) 60 mg 24 hr capsule TAKE 1 CAPSULE BY MOUTH DAILY No current facility-administered medications for this visit. Review of Systems Review of Systems Objective Vitals There were no vitals taken for this visit. Physical Exam Physical Exam BP 124/76 Ht 157.5 cm (5' 2 ) Wt 103.7 kg (228 lb 9.6 oz) BMI 41.81 kg/m Assessment/Plan Labs ordered: Assessment There are no diagnoses linked to this encounter. Plan Patient counseled on weight loss options regarding diet and lifestyle changes including exercise, increased activity, calorie intake, and increased water intake. We discussed medication options (adipex, contrave, wellbutrin, semaglutide), philosophy faculty visit, referral for weight loss surgery. Risks, benefits, alternatives, indications of each as well as potential risks were discussed. Patient desires TO CONTINUE ON SEMAGLUTIDE WE WILL ESCALATE THE DOSE. TO 1.8 MG SUBQ Q WEEK All questions answered. Educational material provided. RTO 4 WEEKS SEMAGLUTIDE PRESCRIPTION SENT TO [facility] DEB SOLER MD documented in this encounterSumma Health07-08-2024 History of Present illness Narrative* Deb Soler MD - 05/19/2024 9:30 AM EDT Aleena Mcguire is a 34 y.o.female. No LMP recorded (lmp unknown). Patient has had an implant.. Shepresents today for follow up on weight loss Patient has lost 7 lb in 1 month on semaglutide 0.6 from [facility] Lost 5 lb the month before No negative side effects Desires to continue Current contraception:Nexplanon OB History 1 Para 1 Term 0 1 AB Living 1 SAB IAB Ectopic Multiple Live Births 1 MEDICAL HX Past Medical History: Diagnosis Date Anxiety Bipolar disorder ([facility]-HCC) Migraine 01/09/2024 PMDD (premenstrual dysphoric disorder) SURGICAL HX Past Surgical History: Procedure Laterality Date SECTION FAMILY HX Family History Problem Relation Age of Onset Cancer Maternal Grandmother lung No Known Problems Father Hypertension Mother Diabetes Mother Stroke Neg Hx Ovarian cancer Neg Hx Colon cancer Neg Hx Breast cancer Neg Hx MEDS Current Outpatient Medications Medication Sig Dispense Refill busPIRone (BUSPAR) 10 mg tablet Take 1 tablet (10 mg total) by mouth in the morning and 1 tablet (10 mg total) before bedtime. doxepin (SINEquan) 10 mg capsule Take 1 capsule (10 mg total) by mouth 3 (three) times a day Indications: anxious. 3 times a day as needed for anxiety. etonogestreL (NEXPLANON) 68 mg implant 1 each (68 mg total) by subdermal route once. FLUoxetine (PROzac) 40 mg capsule Take 1 capsule (40 mg total) by mouth in the morning and 1 capsule (40 mg total) before bedtime. INVEGA TRINZA 819 mg/2.63 mL syringe injection INJECT 2.63 mls INTRAMUSCULARLY once EVERY 3 (THREE)months meloxicam (MOBIC) 15 mg tablet TAKE 1 TABLET BY MOUTH DAILY multivit with calcium,iron,min (MULTIPLE VITAMIN, WOMENS ORAL) Take by mouth. propranolol LA (INDERAL LA) 60 mg 24 hr capsule TAKE 1 CAPSULE BY MOUTH DAILY No current facility-administered medications for this visit. ALLERGIES Allergies Allergen Reactions Hydroxyzine Latex Review of Systems Review of Systems Objective Wt 106.3 kg (234 lb 6.4 oz) LMP (LMP Unknown) Comment: Pt states no periods since she has been onnexplanon BMI 42.86 kg/m Physical Exam BP 118/62 Wt 106.3 kg (234 lb 6.4 oz) LMP (LMP Unknown) Comment: Pt states no periods since shehas been on nexplanon BMI 42.86 kg/m Assessment/Plan: Obesity BMI equals 42 0.86 Semaglutide Happy with regimen Desires to continue to escalate Prescription given Return to office 4 weeks MD Rosalva GARCIA RN documented in this encounterSumma Health06-10-2024 History of Present illness Narrative* Deb Soler MD - 04/21/2024 10:15 AM EDT Subjective Patient ID: Aleena Mcguire is a 34 y.o. female. Pt has completed her first month of Semaglutide injections on the 0.25mg dose. Pt reports no side effects and is happy with medication and weight loss. LOST 5 LB ON SEMAGLUTIDE INITIAL DOSE 0.3 FROM [facility] AND EQUIVALENT 0.2 5 INITIAL DOSE WEGOVY NO NEGATIVE SIDE EFFECTS NO NAUSEA VOMITING DIARRHEA CONSTIPATION Chief Complaint Chief Complaint Patient presents with Weight Loss HPI Past Medical History Past Medical History: Diagnosis Date Anxiety Bipolar disorder ([facility]-HCC) Migraine 01/09/2024 PMDD (premenstrual dysphoric disorder) Past Surgical History Past Surgical History: Procedure Laterality Date SECTION Family History Family History Problem Relation Age of Onset Cancer Maternal Grandmother lung No Known Problems Father Hypertension Mother Diabetes Mother Stroke Neg Hx Ovarian cancer Neg Hx Colon cancer Neg Hx Breast cancer Neg Hx Social History Social History Socioeconomic History Marital status: Legally Spouse name: Not on file Number of children: Not on file Years of education: Not on file Highest education level: Not on file Occupational History Not on file Tobacco Use Smoking status: Former Smokeless tobacco: Never Vaping Use Vaping status: Some Days Substances: THC Devices: Refillable tank Substance and Sexual Activity Alcohol use: Yes Comment: occasional Drug use: Yes Types: Marijuana Comment: daily [employer] Sexual activity: Yes Partners: Male control/protection: Injection Comment: current partner x5 years Other Topics Concern Not on file Social History Narrative Not on file Social Determinants of Health Financial Resource Strain: Not on file Food Insecurity: Food Insecurity Present (04/01/2024) Hunger Screening Food Insecurity - Worry: Sometimes True Food Insecurity - Inability: Sometimes True Transportation Needs: Not on file Physical Activity: Not on file Stress: Not on file Social Connections: Not on file Interpersonal Safety: Not At Risk (01/19/2021) Humiliation, Afraid, Rape, and Kick questionnaire Fear of Current or Ex-Partner: No Emotionally Abused: No Physically Abused: No Sexually Abused: No Housing Instability: Not on file Allergies Allergies Allergen Reactions Hydroxyzine Latex Current Medications Current Outpatient Medications Medication Sig Dispense Refill busPIRone (BUSPAR) 10 mg tablet Take 1 tablet (10 mg total) by mouth in the morning and 1 tablet (10 mg total) before bedtime. etonogestreL (NEXPLANON) 68 mg implant 1 each (68 mg total) by subdermal route once. FLUoxetine (PROzac) 40 mg capsule Take 1 capsule (40 mg total) by mouth in the morning and 1 capsule (40 mg total) before bedtime. meloxicam (MOBIC) 15 mg tablet Take 1 tablet (15 mg total) by mouth in the morning. multivit with calcium,iron,min (MULTIPLE VITAMIN, WOMENS ORAL) Take by mouth. propranoloL (INDERAL) 60 mg tablet Take 1 tablet (60 mg total) by mouth in the morning. No current facility-administered medications for this visit. Review of Systems Review of Systems Objective Vitals BP (!) 128/92 Ht 157.5 cm (5' 2 ) Wt 109.4 kg (241 lb 3.2 oz) BMI 44.12 kg/m Physical Exam Physical Exam BP (!) 128/92 Ht 157.5 cm (5' 2 ) Wt 109.4 kg (241 lb 3.2 oz) BMI 44.12 kg/m Assessment OBESITY BMI EQUALS 44 Plan Patient counseled on weight loss options regarding diet and lifestyle changes including exercise, increased activity, calorie intake, and increased water intake. We discussed medication options (adipex, contrave, wellbutrin, semaglutide), philosophy faculty visit, referral for weight loss surgery. Risks, benefits, alternatives, indications of each as well as potential risks were discussed. Patient desires TO CONTINUE ESCALATING DOSE ON SEMAGLUTIDE WE WILL GIVE BOOSTERS 0.6 MG PER WEEK INJECTION X1 MONTH. All questions answered. Educational material provided. RTO 4 WEEKS FOR FOLLOW UP DEB SOLER MD documented in this encounterSumma Health06-04-2024 History of Present illness Narrative* Deb Soler MD - 04/15/2024 8:00 AM EDT Aleena Mcguire is a 34 y.o.female. No LMP recorded. Patient has had an implant.. She presents for an incision check from Nexplanon insertion on 03/25/24. Pt reports no side effects. Current contraception:Nexplanon OB History 1 Para 1 Term 0 1 AB Living 1 SAB IAB Ectopic Multiple Live Births 1 MEDICAL HX Past Medical History: Diagnosis Date Anxiety Bipolar disorder (CMS-HCC) Migraine 01/09/2024 PMDD (premenstrual dysphoric disorder) SURGICAL HX Past Surgical History: Procedure Laterality Date SECTION FAMILY HX Family History Problem Relation Age of Onset Cancer Maternal Grandmother lung No Known Problems Father Hypertension Mother Diabetes Mother Stroke Neg Hx Ovarian cancer Neg Hx Colon cancer Neg Hx Breast cancer Neg Hx MEDS Current Outpatient Medications Medication Sig Dispense Refill busPIRone (BUSPAR) 10 mg tablet Take 1 tablet (10 mg total) by mouth in the morning and 1 tablet (10 mg total) before bedtime. FLUoxetine (PROzac) 40 mg capsule Take 1 capsule (40 mg total) by mouth in the morning and 1 capsule (40 mg total) before bedtime. medroxyPROGESTERone (DEPO-PROVERA) 150 mg/mL injection Inject 1 mL (150 mg total) into the appropriate muscle every 3 (three) months. meloxicam (MOBIC) 15 mg tablet Take 1 tablet (15 mg total) by mouth in the morning. multivit with calcium,iron,min (MULTIPLE VITAMIN, WOMENS ORAL) Take by mouth. propranoloL (INDERAL) 60 mg tablet Take 1 tablet (60 mg total) by mouth in the morning. No current facility-administered medications for this visit. ALLERGIES Allergies Allergen Reactions Hydroxyzine Latex Review of Systems Review of Systems Objective There were no vitals taken for this visit. Physical Exam BP 132/86 Ht 157.5 cm (5' 2 ) Wt 109.3 kg (241 lb) BMI 44.08 kg/m EXTREMITY: LEFT ARM INCISION SITE WELL HEALED WITHOUT SIGNS OR SYMPTOMS OF INFECTION Assessment/Plan: STATUS POST NEXPLANON INSERTION INCISION SITE WELL HEALED NO ISSUES STATUS POST INSERTION RETURN TO OFFICE SCHEDULED FOR HER NEXT APPOINTMENT MD COURTNEY GARCIA, SIDE PANEL HANGER documented in this encounterCleveland Clinic Mary[facility] HospitalPay-Me [facility] [id number] History of Present illness Narrative* Julianna Oseguera, BRONWYN - 04/01/2024 3:30 PM EDT OUTPATIENT NUTRITION CONSULTATION- ADULT Date: 04/01/24 Time in: 3:30pm Time out: 4:30pm Patient Aleena Mcguire Age () 34 y.o. (1990) Sex female Accompanied by alone Reason for Visit: Chief Complaint Patient presents with MNT - Individual Initial; wt loss desires Assessment: Height/Weight: BMI Category Obese class 3 (> or = 40.00) Weight Wt Readings from Last 3 Encounters: 03/25/24 110.7 kg (244 lb) 03/24/24 111.9 kg (246 lb 12.8 oz) 03/03/24 111.5 kg (245 lb 12.8 oz) Lab Results: A1c Lab Results Component Value Date HGBA1C 5.4 03/03/2024 Kidney Lab Results Component Value Date GLU 92 03/03/2024 K 4.2 03/03/2024 BUN 9 03/03/2024 CREATININE 0.77 03/03/2024 Lipid Panel Lab Results Component Value Date CHOL 194 03/03/2024 Lab Results Component Value Date HDL 44 03/03/2024 Lab Results Component Value Date LDLCALC 104 03/03/2024 Lab Results Component Value Date TRIG 229 (H) 03/03/2024 Hgb Hemoglobin Date/Time Value Ref Range Status 03/03/2024 09:51 AM 14.3 11.7 - 15.5 g/dL Final Psychosocial / Economic Comments: Lives in a household with 2 kids and another her boyfriend. Worksfull time; 12 hours a day 5 days a week. Nutrition/Diet Counseling: Prior Nutrition Counseling Prior nutrition counseling was not provided. Diet History Revealed Energy Intake: Inconsistent Total Fat Intake: Excessive Sodium Intake: Excessive Fiber Intake: Inadequate Carbohydrate Intake: Excessive Protein Intake: Inadequate Food Recall Breakfast Time:: 0800 Breakfast Meal:: Usually skips; tends to get nausea when eating. Lunch Time:: 1100 Lunch Meal:: Fast food usually; wendys (biggi bag), smoothie, salad from a resturant Dinner Time:: 1800 Dinner Meal:: Salad; ranch, croutons, and cheese What beverages do you consume and approxiate amount?: Water; usually drinking this all day Pertinent Comments: Background Geo is here today via [employer]; looking for guidance on lifestyle changes to support weight loss. Geo states she has gained a lot of weight over the last 2 years. Has started trying to make some lifestyle changes. Relevant Medication Therapy and BG checking Method Pt states she just started a semaglutide; pt states she does not know which one. Has not noticed any changes in appetite yet due to it. Discussed need for consistent intake with these even if appetite decreases. Movement/Exercise Pt is not getting much movement outside of day to day activities at this time. Has started walking more trails with her family. Is active in walking at her job during the afternoons. Does have time during work hours she could start incorporating more weight lifting and movement Encouraged muscle building movement if and when able; weight lifting, resistant training, at home seated movement. Discussed the benefits of movement/exercise in weight loss, BG control, and all overwellbeing. Concerns Pt is concerned she will not loose weight Diagnosis: Excessive energy intake and Excessive carbohydrate intake Related to Lack of or limited access to healthful food choices and Lack of prior nutrition-related education As evidenced by 24 hr recall and Questions and comments Intervention: Nutrition Education: Patient was instructed on carbohydrate counting, healthy food selections, sources of fiber, and protein sources Notes: Previous Eating Habits Pt was not following a specific diet before. Had been using food as a coping mechanism. Is trying to switch that focus to understand her intake and fuel her body. Has started tracking her calories; discussed how this can be useful when trying to understand intake but does not give her all the information about her intake. Discussed how this can be stressful; encouraged using it for knowledge and to understand balance. Tends to skip breakfast; discussed how this can affect hunger cues at lunch. Recommended getting a small snack to start her day. Is missing lean protein and vegetables/fiber at lunch; discussed things she could pack to eat out with since fast food is usually her main option for lunch. Dinner is sometimes lacking protein; again discussed increasing her balance to better fuel her body. Explained the role of macronutrient's and their impact on metabolism and energy levels. Discussed the impact of carbohydrates on BG levels, encouraged supportive nutrients with carbs for digestive and BG level support. Educated on balanced meals and snacks with a focus on protein and fiber for fulln ess/satisfaction. Recommended spacing meals 3-5 hours apart, including snacks between meals (as needed) with carb/protein pairings. Recommended carb intake provided above. Provided with supportive resources that include but were not limited to: snack ideas, lean proteins, fiber containing foods, plate method. Monitoring & Evaluation: Goals Breakfast; need to get something. Carb and protein balance; protein drink with fruit, or yogurt, ornuts with fruit Lunch; increase balance. Decrease carb intake while increasing fiber/vegetable intake. May need to pack some vegetables to snack on; can make a high protein dip using maori yogurt and dill powder mix(in the dressing isle). Dinner; increase protein. Utilize protein resources I attached. Remember balance. Utilize MyPlate method to help build balance; carb, protein, fiber/vegetables. Increase movement; 20-30min/day; start with resistance bands, stretching, water bottles. Follow-Up Plan Follow up appointment with RKathryn scheduled. Department phone number provided for questions after session. BORNWYN WHITLEY, RDN, CDCES [facility] Diabetes and Nutrition Education Video Visit via Real-time Synchronous Audiovisual Provider Location: [facility] - OUTPATIENT DIABETES AND NUTRITION EDUCATION PROGRAM [address] [place] [id number] Patient Location: Patient's home Video Visit Consent Statement: I discussed risks, benefits, and alternatives of a real-time synchronous audiovisual consultation with the patient (and any accompanying persons) including the risks that the patient's personal health details and medical records will be discussed over real-time, synchronous, interactive video/audio/telecommunication technology, the visit will not be recorded withoutthe express consent of both the provider and the patient, and that there are some limitations compared to [id number] evaluations. The patient consented to the presence of additional virtual and/or in-person participants. We elected to proceed. documented in this encounterSumma Health05-14-2024 History of Present illness Narrative* Deb Soler MD - 03/25/2024 1:45 PM EDT Nexplanon Contraceptive Implant Insertion Note Aleena Mcguire desires a Nexplanon implant insertion. She has been counseled regarding the risks, benefits and alternatives to the implant. She especially understands that her menstrual periods are expected to become irregular and unpredictable throughout the time she is using the implant. She hasno contraindications to the insertion. Her questions have been answered. She has fully reviewed theA-approved consent brochure, has signed the consent form, and wishes to proceed with the insertion today. No LMP recorded. Patient has had an injection. Urine test: negative OB History 1 Para 1 Term 0 1 AB Living 1 SAB IAB Ectopic Multiple Live Births 1 There were no vitals taken for this visit. Procedure Details The inner side of the left arm was cleansed with betadine x3 and infiltrated with 3 mls. 1% xylocaine. The contraceptive jaun was inserted according to the adjunct faculty for medical terminology's instructions without complications. The jaun was palpable under the skin after the insertion. The insertion site was closed with steri strips; pressure dressing applied; instructions given to leave pressure dressing on for 24 hours and steri strips on for 4 days. Aleena was given post-insertion instructions. She understands that the implant must be removed at the end of three years and may be removed sooner if she wishes. Orders Placed This Encounter Procedures POCT , urine COURTNEY HOANG CMA documented in this encounterSumma Health05-14-2024 Miscellaneous Notes* Addendum Note - Courtney Hoagn CMA - 03/25/2024 1:45 PM EDTAddended by: COURTNEY HOANG on: 03/25/2024 03:29 PM Modules accepted: Orders documented in this encounterSumma Health05-14-2024 Note* Addendum Note - Courtney Hoang CMA - 03/25/2024 1:45 PM EDTAddended by: COURTNEY HOANG on: 03/25/2024 03:29 PM Modules accepted: Orders [facility]04-22-2024 Miscellaneous Notes* Telephone Encounter - Akiko Loyola - 03/03/2024 12:44 PM EDT We received a referral for education on Aleena Mcguire 1990. However per [facility] Guidelines we need to have the services requested marked as such on referral. Please see pended order and sign if you are agreeable. Thank you [facility] Diabetes and Nutrition Education * Telephone Encounter - Odalys Robles CMA - 03/03/2024 12:44 PM EDT Just checking the status of this referral. * Telephone Encounter - Courtney Hoang CMA - 03/03/2024 12:44 PM EDT Order placed * Telephone Encounter - Odalys Robles CMA - 03/03/2024 12:44 PM EDT Noted documented in this encounterSumma Health04-22-2024 Telephone encounter Note* Telephone Encounter - Akiko Loyola - 03/03/2024 12:44 PM EDT We received a referral for education on Aleena Mcguire 1990. However per [facility] Guidelines we need to have the services requested marked as such on referral. Please see pended order and sign if you are agreeable. Thank you [facility] Diabetes and Nutrition Education [facility]04-22-2024 Telephone encounter Note* Telephone Encounter - Odalys Robles CMA - 03/03/2024 12:44 PM EDT Just checking the status of this referral. [facility]04-22-[facility] Telephone encounter Note* Telephone Encounter - Courtney Hoang CMA - 03/03/2024 12:44 PM EDT Order placed [facility]04-22-20[facility] Telephone encounter Note* Telephone Encounter - Odalys Robles CMA - 03/03/2024 12:44 PM EDT Noted [facility]04-22-2024 History of Present illness Narrative* Deb Soler MD - 03/03/2024 8:30 AM EDT Subjective Patient ID: Aleena Mcguire is a 33 y.o. female who desires something for weight loss. Pts current weight is 245.8# with a BMI of 44.96. Pt is interested in discussing all available options for her at this time. DISCUSSED WITH THE PATIENT ALL RISKS BENEFITS ALTERNATIVES INDICATIONS OF ALL WEIGHT LOSS OPTIONS TO INCLUDE BUT NOT LIMITED TO ELEVATED BLOOD PRESSURE NAUSEA VOMITING DIARRHEA CONSTIPATION PANCREATITIS WELL CONTRAINDICATIONS OF CARDIOVASCULAR DISEASE AND PERSONAL HISTORY AND FAMILY MEDICAL HISTORY THYROID CANCER AND MULTIPLE ENDOCRINE NEOPLASIA AND MULTIPLE DIFFERENT OPTIONS FOR ADIPEX SEMAGLUTIDE ORLISTAT WELLBUTRIN NALOXONE CONTRAVE ETCETERA PATIENT IS DISCUSSED ALL DIFFERENT MEDICAL OPTIONS AND THE RISKS BENEFITS ALTERNATIVES INDICATIONS WELL SURGICAL BARIATRIC OPTIONS WERE OFFERED TO THIS PATIENT WELL HER GENERAL HEALTH SCREENING LABORATORIES ARE ORDERED FORENSIC PHOTOGRAPHER IS REFERRED AND INCREASING CALORIC EXPENDITURE AND INCREASING CALORIC EXPENDITURE AND WEEKLY EXERCISE IS DISCUSSED WITH THE PATIENT AT GREAT LENGTH SHE VOICED UNDERSTANDING DESIRES TO PROCEED. SHE WILL RETURN TO DISCUSS THE RESULTS OF HER GENERAL HEALTH SCREENING LABORATORIES AND HER DECISION TO PROCEED Chief Complaint Chief Complaint Patient presents with Weight Loss HPI OBESITY WITH BMI OF 45 DESIRES INTERVENTION AT THIS TIME FEELS THAT SHE HAS GAINED A TREMENDOUS AMOUNT OF WEIGHT SINCE BEING ON DEPO-PROVERA ADDITIONAL CONTRACEPTIVE OPTIONS WERE ALSO DISCUSSED WITH THE PATIENT DESIRES TO CHANGE CONTRACEPTION FROM DEPO-PROVERA TO IUD OR NEXPLANON Past Medical History Past Medical History: Diagnosis Date Anxiety Bipolar disorder ([facility]-HCC) Migraine 01/09/2024 PMDD (premenstrual dysphoric disorder) Past Surgical History Past Surgical History: Procedure Laterality Date SECTION Family History Family History Problem Relation Age of Onset Cancer Maternal Grandmother lung No Known Problems Father Hypertension Mother Diabetes Mother Stroke Neg Hx Ovarian cancer Neg Hx Colon cancer Neg Hx Breast cancer Neg Hx Social History Social History Socioeconomic History Marital status: Legally Spouse name: Not on file Number of children: Not on file Years of education: Not on file Highest education level: Not on file Occupational History Not on file Tobacco Use Smoking status: Former Smokeless tobacco: Never Vaping Use Vaping status: Some Days Substances: THC Devices: Refillable tank Substance and Sexual Activity Alcohol use: Yes Comment: occasional Drug use: Yes Types: Marijuana Comment: daily marijuanna Sexual activity: Yes Partners: Male control/protection: Injection Comment: current partner x5 years Other Topics Concern Not on file Social History Narrative Not on file Social Determinants of Health Financial Resource Strain: Not on file Food Insecurity: No Food Insecurity (02/12/2024) Hunger Screening Food Insecurity - Worry: Never True Food Insecurity - Inability: Never True Transportation Needs: Not on file Physical Activity: Not on file Stress: Not on file Social Connections: Not on file Interpersonal Safety: Not At Risk (01/19/2021) Humiliation, Afraid, Rape, and Kick questionnaire Fear of Current or Ex-Partner: No Emotionally Abused: No Physically Abused: No Sexually Abused: No Housing Instability: Not on file Allergies Allergies Allergen Reactions Hydroxyzine Latex Current Medications Current Outpatient Medications Medication Sig Dispense Refill brexpiprazole (REXULTI) 0.5 mg tablet Take 1 tablet (0.5 mg total) by mouth in the morning. buPROPion (WELLBUTRIN) 100 mg tablet Take 1 tablet (100 mg total) by mouth in the morning. busPIRone (BUSPAR) 10 mg tablet Take 1 tablet (10 mg total) by mouth in the morning and 1 tablet (10 mg total) before bedtime. FLUoxetine (PROzac) 40 mg capsule Take 1 capsule (40 mg total) by mouth in the morning and 1 capsule (40 mg total) before bedtime. INVEGA SUSTENNA 234 mg/1.5 mL syringe INJECT 1.5 ml INTRAMUSCULARLY once a month (Patient not taking: Reported on 02/12/2024) medroxyPROGESTERone (DEPO-PROVERA) 150 mg/mL injection Inject 1 mL (150 mg total) into the appropriate muscle every 3 (three) months. (Patient not taking: Reported on 02/12/2024) meloxicam (MOBIC) 15 mg tablet Take 1 tablet (15 mg total) by mouth in the morning. multivit with calcium,iron,min (MULTIPLE VITAMIN, WOMENS ORAL) Take by mouth. propranoloL (INDERAL) 60 mg tablet Take 1 tablet (60 mg total) by mouth in the morning. No current facility-administered medications for this visit. Review of Systems Review of Systems Objective Vitals There were no vitals taken for this visit. Physical Exam Physical Exam BP 116/78 Ht 157.5 cm (5' 2 ) Wt 111.5 kg (245 lb 12.8 oz) BMI 44.96 kg/m Assessment/Plan Labs ordered: Hgb A1c, lipid profile, TSH, T4, CBC, CMP, fasting insuline Assessment OBESITY BMI OF 45 DESIRES CHANGE OF CONTRACEPTION FROM DEPO-PROVERA TO IUD OR NEXPLANON CONTRACEPTIVE COUNSELING GIVEN Plan Patient counseled on weight loss options regarding diet and lifestyle changes including exercise, increased activity, calorie intake, and increased water intake. We discussed medication options (adipex, contrave, wellbutrin, semaglutide), philosophy faculty visit, referral for weight loss surgery. Risks, benefits, alternatives, indications of each as well as potential risks were discussed. Patient desires GENERAL HEALTH SCREENING LABS PATIENT ALSO DESIRES TO DISCONTINUE DEPO-PROVERA AND SWITCH TO IUD OR NEXPLANON EXTENSIVE COUNSELING GIVEN ON CONTRACEPTIVE OPTIONS AND THE RISKS BENEFITS ALTERNATIVES IND. All questions answered. Educational material provided. RTO one week to review labs. DEB SOLER MD documented in this encounterSumma Health02-28-2024 History of Present illness Narrative* Jaz Guerrero, HYDROGEN POWER PLANT ENGINEER-ELECTRIC OPERATOR - 01/09/2024 3:30 PM EST Annual Well Woman Visit 01/09/2024 Shelton Mcguire is a 33 y.o. 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 Periods are none on depo provera . Denies intermenstrual bleeding, spotting, or abnormal discharge. No pelvic pain. Patient declines STD testing today. Complaints today: patient is due for depo provera Relationship status: in a relationship The patient reports that there is not domestic violence in her life. Sexually active: yes Sexual concerns: none Patient works: full time staff interpreter job at a [employer] Former smoker, quit 2 years ago Children YES How many One Current contraception: Depo-Provera injections History of abnormal Pap smear: no Last pap: 2019 Regular self breast exam: yes Last mammogram: N/A Family history of breast cancer: no Family history of uterine or ovarian cancer: no Family history of pancreatic or prostate cancer: no Family history of colon cancer: no Covid vaccinated: no Flu shot this flu season: no HPV vaccinated: no PHQ9 depression screenin OB History 1 Para 1 Term 0 1 AB Living 1 SAB IAB Ectopic Multiple Live Births 1 The following portions of the patient's history were reviewed and updated as appropriate: allergies, current medications, past family history, past medical history, past social history, past surgicalhistory and problem list. MEDICAL HX Past Medical History: Diagnosis Date Anxiety Bipolar disorder (CMS-HCC) Migraine 01/09/2024 PMDD (premenstrual dysphoric disorder) SURGICAL HX Past Surgical History: Procedure Laterality Date SECTION FAMILY HX Family History Problem Relation Age of Onset Cancer Maternal Grandmother lung No Known Problems Father Hypertension Mother Diabetes Mother Stroke Neg Hx Ovarian cancer Neg Hx Colon cancer Neg Hx Breast cancer Neg Hx MEDS Current Outpatient Medications Medication Sig Dispense Refill busPIRone (BUSPAR) 10 mg tablet Take 1 tablet (10 mg total) by mouth in the morning and 1 tablet (10 mg total) before bedtime. FLUoxetine (PROzac) 40 mg capsule Take 1 capsule (40 mg total) by mouth in the morning and 1 capsule (40 mg total) before bedtime. INVEGA SUSTENNA 234 mg/1.5 mL syringe INJECT 1.5 ml INTRAMUSCULARLY once a month medroxyPROGESTERone (DEPO-PROVERA) 150 mg/mL injection Inject 1 mL (150 mg total) into the appropriate muscle every 3 (three) months. meloxicam (MOBIC) 15 mg tablet Take 1 tablet (15 mg total) by mouth in the morning. multivit with calcium,iron,min (MULTIPLE VITAMIN, WOMENS ORAL) Take by mouth. propranoloL (INDERAL) 60 mg tablet Take 1 tablet (60 mg total) by mouth in the morning. brexpiprazole (REXULTI) 0.5 mg tablet Take 1 tablet (0.5 mg total) by mouth in the morning. (Patient not taking: Reported on 01/09/2024) buPROPion (WELLBUTRIN) 100 mg tablet Take 1 tablet (100 mg total) by mouth in the morning. (Patientnot taking: Reported on 01/09/2024) No current facility-administered medications for this visit. ALLERGIES Allergies Allergen Reactions Hydroxyzine Latex Review of Systems Constitutional: Negative. Respiratory: Negative. Negative for chest tightness and shortness of breath. Cardiovascular: Negative. Negative for chest pain and palpitations. Gastrointestinal: Negative. Negative for constipation, diarrhea, nausea and vomiting. Endocrine: Negative. Genitourinary: Negative. Negative for dyspareunia, pelvic pain and vaginal bleeding. Musculoskeletal: Negative. Skin: Negative. Allergic/Immunologic: Negative. Neurological: Positive for headaches. Hematological: Negative. Psychiatric/Behavioral: Negative. Objective BP 116/82 Ht 157.5 cm (5' 2 ) Wt 112 kg (247 lb) BMI 45.18 kg/m Physical Exam Vitals and nursing note reviewed. Constitutional: Appearance: Normal appearance. HENT: Head: Normocephalic and atraumatic. Cardiovascular: Rate and Rhythm: Normal rate and regular rhythm. Pulses: Normal pulses. Heart sounds: Normal heart sounds. Pulmonary: Effort: Pulmonary effort is normal. Breath sounds: Normal breath sounds. Chest: Breasts: Breasts are symmetrical. Right: Normal. No mass, skin change or tenderness. Left: Normal. No mass, skin change or tenderness. Abdominal: General: Bowel sounds are normal. Palpations: Abdomen is soft. Genitourinary: General: Normal vulva. Labia: Right: No rash or lesion. Left: No rash or lesion. Musculoskeletal: General: Normal range of motion. Cervical back: Normal range of motion and neck supple. Skin: General: Skin is warm and dry. Neurological: Mental Status: She is alert and oriented to person, place, and time. Psychiatric: Mood and Affect: Mood normal. Speech: Speech normal. Behavior: Behavior normal. Thought Content: Thought content normal. Judgment: Judgment normal. Assessment/Plan: Aleena was seen today for gynecologic exam and contraception. Diagnoses and all orders for this visit: Well woman exam with routine gynecological exam Cervical smear, as part of routine gynecological examination - Pap Smear; Future - High risk HPV w/fartun; Future Encounter for surveillance of injectable contraceptive - medroxyPROGESTERone (DEPO-PROVERA) injection 150 mg Standardized adult depression screening tool completed BMI is above average; Discussed eating tips for weight loss and and exercise steps. Breast self exam technique reviewed and patient encouraged to perform self-exam monthly. Discussed healthy lifestyle modifications. Educational material distributed. 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 Follow up as needed. RTO 3 months for next depo provera. Await pap. Discussed ASCCP screening guidelines. Discussed taking a multivitamin. Discussed Calcium and Vitamin D for prevention of osteoporosis. HPV vaccine is recommended between 9-45 yo. Can be received at [facility] or the health department. Discussed need for yearly mammogram after 40 yo. Discussed colon cancer screening recommendations to begin at 45 yo, patient to discuss with PCP. All questions answered. RESHMA Herrera APRN-CNP Lisa M Franco, APRN-CNP 01/09/24 1726 documented in this encounterSum[facility] Health08-13-2022 Evaluation note* Encounter Date Diagnosis Assessment Notes Treatment Notes Treatment Clinical Notes Jun, Contact with and (suspected) exposure to covid-19 (ICD-10 - Z20.822) 13 Jun, 2022 COVID-19 (ICD-10 - U07.1) COVID PCR test performed in office today. Advised patient that test was positive. Instructed patient to isolate per CDC guidelines for 5 days from symptom onset, mask 5 days following. May return to work/activities outside home after isolation period as long as symptoms are improving and has been afebrile for 24 hours without use of antipyretic. Advised patient that treatment of COVID is with viral supportive care, OTC cold medications as directed, Tylenol/Motrin as needed for body aches/fever. Increase fluids and rest. Will send in rx of Zofran and Flonase to use as directed. Encouraged use of cool mist humidifier. Follow-up with PCP to advise of positive result and further management. Immediate eval for SOB, difficulty, chest pain, fevers that do not break with antipyretic or any other concerning symptoms as reviewed on patient education handout. Patient verbalizes understanding and is agreeable to treatment plan. Patient left in stable condition ASSET4 Other Evaluation note* Diagnosis Onset Date Resolution Status Schizoaffective disorder [facility] Work Phone: Evaluation note* Diagnosis BMI 40.0-44.9, [place] [place] Primary Screening for STD (sexually transmitted disease) documented in this encounter [facility]* Diagnosis BMI 40.0-44.9, adult [place] [place] Primary documented in this encounter [facility]* Diagnosis Nexplanon insertion- Primary documented in this encounter [facility]* Diagnosis BMI 40.0-44.9, adult [place] [place] Primary Class 3 severe obesity due to excess calories with serious comorbidity and body mass index (BMI) of 45.0 to 49.9 in adult [place] [place] documented in this encounter [facility]* Diagnosis BMI 40.0-44.9, adult [place] [place] documented in this encounter [facility]* Diagnosis Encounter for surveillance of implantable subdermal contraceptive- Primary documented in this encounter [facility]* Diagnosis Class 3 severe obesity due to excess calories with serious comorbidity and body mass index (BMI) of 45.0 to 49.9 in adult [place] [place] Primary documented in this encounter [facility]* Diagnosis Well woman exam with routine gynecological exam- Primary Routine gynecological examination Cervical smear, as part of routine gynecological examination Screening for malignant neoplasm of the cervix Encounter for surveillance of injectable contraceptive Standardized adult depression screening tool completed documented in this encounter [facility]* Diagnosis Class 3 severe obesity due to excess calories without serious comorbidity with body mass index (BMI) of 40.0 to 44.9 in adult [place] [place] Primary documented in this encounter [facility]* Diagnosis Nexplanon removal- Primary documented in this encounter [facility]* Diagnosis Encounter to establish care- Primary Other migraine without status migrainosus, not intractable Anxiety Anxiety state, unspecified Bipolar affective disorder, remission status unspecified ([facility]) Osteoarthritis of both knees, unspecified osteoarthritis type Vitamin D deficiency Otitis media with effusion, bilateral Morbid (severe) obesity due to excess calories ([facility]) Body mass index (BMI) 40.0-44.9, adult [place] [place] [facility] Diagnosis ZAFAR (generalized anxiety disorder) Generalized anxiety disorder PTSD (post-traumatic stress disorder) Posttraumatic stress disorder Mild episode of recurrent major depressive disorder History of psychosis [facility] Diagnosis Routine general medical examination at a health care facility- Primary Vitamin D deficiency Morbid (severe) obesity due to excess calories [place] [place] Body mass index (BMI) 40.0-44.9, adult [place] [place] Anxiety Anxiety state, unspecified Bipolar affective disorder, remission status unspecified ([facility]) Other migraine without status migrainosus, not intractable Dermatitis Contact dermatitis and other eczema, due to unspecified cause Lipid screening Screening for lipoid disorders Screening for diabetes mellitus Screening for heart disease Screening for other and unspecified cardiovascular conditions [facility] Diagnosis ZAFAR (generalized anxiety disorder) Generalized anxiety disorder PTSD (post-traumatic stress disorder) Posttraumatic stress disorder Mild episode of recurrent major depressive disorder History of psychosis documented [facility] Narrative - Reported* Type Description Date Medical History anxiety Medical History migraine headache Medical History Arthritis Surgical History C CHOBOLABS Other Instructions* Attachments The following attachments cannot be sent through Care Everywhere. * Weight loss surgery (Dominican) * Semaglutide, ADULT (Dominican) documented in this encounterProTri[facility] SystemInstructionsNot on file documented in this encounterProTrihealth SystemInstructionsNot on file documented in this encounterProTrihealth SystemInstructionsNot on file documented in this encounterProTrihealth SystemInstructionsNot on file documented in this encounterProTrihealth SystemInstructions* Attachments The following attachments cannot be sent through Care Everywhere. * Health Risks of a High BMI (Dominican) * Human papillomavirus (HPV) vaccine (Dominican) documented in this encounterProTrihealth SystemInstructionsNot on file documented in this encounterSumma HealthReason for referral (narrative)* Consultation (Routine) - Pending Review Specialty Diagnoses / Procedures Referred By Contac t Referred To Contact Nutrition Diagnoses BMI 40.0-44.9, adult [place] [place] Deb Soler MD [address] [place] [address] [facility] Nutrition Services [address] [place] [address] Referral ID Status Reason Start Date Expiration Date V isits Requested Visits Authorized [id number] Pending Review 03/03/2024 03/03/2025 1 1 [facility] for referral (narrative)* Consultation (Routine) - Pending Review Specialty Diagnoses / Procedures Referred By Contac t Referred To Contact Endocrinology, Diabetes & Metabolism Diagnoses BMI 40.0-44.9, adult [place] [place] Deb Soler MD [address] [place] [address] [facility] Diabetes/Nutrition Ed [address] [address] Referral ID Status Reason Start Date Expiration Date Visits Requested Visits Authorized [id number] Pending Review Specialty Services Required 03/11/2024 03/11/2025 1 1 [facility] Summary Purpose Family History Relationship Condition Age at Onset Recorded Date/T ben mother Hypertension Unknown family member Suicide Unknown Advance Directives Advance Directive Response Recorded Date/ Time Advance Directives No July 02, 2020 7:36pm Date Activated Date Inactivated Comments 05/02/2024 10:08 PM 05/04/2024 1:02 PM Chief Complaint and Reason for Visit Chief Complaint BH bipolar bipolar Reason for Visit Schizoaffective diso rder Additional Source Comments REASON FOR VISIT (unrecogniz ed section and content) Reason Comments Weight Loss Reason Comments Contraception Reason Comments Weight Loss Reason Comments MNT - Individual Initial; wt loss zulay ires Specialty Diagnoses / Procedures Referred By Robert fitch Referred To Contact Endocrinology, Diabetes & Metabolism Diagnoses BMI 40.0-44.9, adult ([facility]) Deb Soler MD [address] [facility] [place] [address] [facility] Diabetes/Nutrition Ed [address] [place] [address] Referral ID Status Reason Start Date Expiration Date Visits Requested Visits Authorized [id number] Pending Review Specialty Services Required 03/11/2024 03/11/2025 1 1 Reason Comments Contraception Follow up Nexplanon insertion on 03/25/24 Reason Comments Follow-up Weight loss Reason Comments Gynecologic Exam Pt is here for annua l exam. Contraception Pt is due for Depo Reason Comments Follow-up Weight loss. Reason Comments Procedure Patient presents for Nexplanon removal. Reason Comments Establish Care Previously with Dr. [facility] Reason Comments Psychiatric Evaluation Specialty Diagnoses / Procedures Referred By Robert fitch Referred To Contact Behavioral Health Diagnoses Anxiety Bipolar affective disorder, remission status unspecified ([facility]) Procedures UT OFFICE/OUTPATIENT NEW HIGH MDM 60 MINUTES John Lujan NP [address] [facility] [place] [address] Phone: tel: fax: Leah Ricketts, PMDONATO-BC [address] [address] [place] [address] Phone: tel: fax: Referral ID Status Reason Start Date Expiration Date V isits Requested Visits Authorized [id number] Closed Specialty Services Required 04/07/2025 10/04/2025 1 1 Reason Comments Annual Exam Reason Comments Follow-up Anxiety Depression INFORMATION SOURCE (unrecogn ized section and content) DATE CREATED AUTHOR 07/07/2022 [facility] DATE CREATED AUTHOR AUTHOR'S ORGANIZ ATION 03/04/2024 [facility] DATE CREATED AUTHOR AUTHOR'S ORGANIZ ATION 04/04/2024 [facility] DATE CREATED AUTHOR AUTHOR'S ORGANIZ ATION 01/04/[address] [facility] DATE CREATED AUTHOR AUTHOR'S ORGANIZ ATION 03/20/2025 [facility] DATE CREATED AUTHOR AUTHOR'S ORGANIZ ATION 04/12/2025 [facility] DATE CREATED AUTHOR AUTHOR'S ORGANIZ ATION 04/15/2025 [facility] DATE CREATED AUTHOR AUTHOR'S ORGANIZ ATION 05/28/2025 [facility] EPIC Care Teams (unrecognized sec tion and content) Team Status: Active Member Role Status Dates PHYSICIAN NO FAMILY Primary Care Provider Active Team Status: Active Member Role Status Dates Moustapha Malone DO Primary Care Provider Active Start: July 21, 2024 Jaxon Mercado MD Attending Provider Active Start: July 21, 2024 Team Status: Inactive Member Role Status Dates PHYSICIAN NO FAMILY Primary Care Provider Active Start: August 11, 2024 End: August 15, 2024 Lucas Nuñez MD Admit Provider, Atte nding Provider Active Start: August 11, 2024 End: August 15, 2024 Team Status: Active Member Role Status Dates PHYSICIAN NO FAMILY Primary Care Provider Active Start: August 12, 2024 Lucas Nuñez MD Admit Provider, Atte nding Provider, Other Provider Active Start: August 12, 2024 Preschool Substitute Teacher Relationship Specialty Start Date End Date Moustapha Malone DO [address] [place] [address] PCP - General Family Medicine 03/03/24 Preschool Substitute Teacher Relationship Specialty Start Date End Date Moustapha Malone DO [address] [place] [address] PCP - General Family Medicine 03/03/24 Preschool Substitute Teacher Relationship Specialty Start Date End Date Moustapha Malone DO [address] [place] [address] PCP - General Family Medicine 03/03/24 Preschool Substitute Teacher Relationship Specialty Start Date End Date Moustapha Malone DO [address] [place] [address] PCP - General Family Medicine 03/03/24 Preschool Substitute Teacher Relationship Specialty Start Date End Date Moustapha Malone DO [address] [place] [address] PCP - General Family Medicine 03/03/24 Preschool Substitute Teacher Relationship Specialty Start Date End Date No Pcp, [place] [address] PCP - General Family Medicine 05/02/24 Preschool Substitute Teacher Relationship Specialty Start Date End Date Moustapha Malone DO [address] [place] [address] PCP - General Family Medicine 03/26/20 Preschool Substitute Teacher Relationship Specialty Start Date End Date No Pcp, [place] [address] PCP - General Family Medicine 05/02/24 Preschool Substitute Teacher Relationship Specialty Start Date End Date No Pcp, [place] [address] PCP - General Family Medicine 05/02/24 Preschool Substitute Teacher Relationship Specialty Start Date End Date Moustapha Malone DO PCP - General Family Medicine 08/11/24 Preschool Substitute Teacher Relationship Specialty Start Date End Date Rupal Mayo MD [address] [place] [address] PCP - General Family Medicine 04/07/25 John Lujan NP [address] [place] [address] Nurse Practitioner Family Medicine 04/07/25 Preschool Substitute Teacher Relationship Specialty Start Date End Date Rupal Mayo MD [address] [place] [address] PCP - General Family Medicine 04/07/25 John Lujan NP [address] [place] [address] Nurse Practitioner Family Medicine 04/07/25 Preschool Substitute Teacher Relationship Specialty Start Date End Date Rupal Mayo MD [address] [place] [address] PCP - General Family Medicine 04/07/25 John Lujan NP [address] [place] [address] Nurse Practitioner Family Medicine 04/07/25 Preschool Substitute Teacher Relationship Specialty Start Date End Date Rupal Mayo MD [address] [place] [address] PCP - General Family Medicine 04/07/25 John Lujan NP [address] [place] [address] Nurse Practitioner Family Medicine 04/07/25 Leah Ricktets, [facility] [address] [place] [address] [place] [address] Nurse Practitioner Behavioral Health 04/27/25 Preschool Substitute Teacher Relationship Specialty Start Date End Date Rupal Mayo MD [address] [place] [address] PCP - General Family Medicine 04/07/25 John Lujan NP [address] [place] [address] Nurse Practitioner Family Medicine 04/07/[address] [facility] [address] [place] [phone] Nurse Practitioner Behavioral Health 04/27/25 Preschool Substitute Teacher Relationship Specialty Start Date End Date Rupal Mayo MD [address] [place] [address] PCP - General Family Medicine 04/07/25 John Lujan NP [address] [place] [address] Nurse Practitioner Family Medicine 04/07/[address] [facility] [address] [place] [address] [place] [address] Nurse Practitioner Behavioral Health 04/27/25 Preschool Substitute Teacher Relationship Specialty Start Date End Date Rupal Mayo MD [address] [place] [address] PCP - General Family Medicine 04/07/25 John Lujan NP [address] [place] [address] Nurse Practitioner Family Medicine 04/07/[address] [facility] [address] [phone] Nurse Practitioner [facility] 04/27/25 Preschool Substitute Teacher Relationship Specialty Start Date End Date Rupal Mayo MD [address] [place], [place] [id number] PCP - General Family Medicine 04/07/25 John Lujan NP [address] [place], [place] [id number] Nurse Practitioner Family [facility] 04/07/[address] [facility] [address] [phone] Nurse Practitioner [facility] 04/27/25 FOR RECORDS PERTAINING TO PATIENTS WHO ARE OR HAVE BEEN ENROLLED IN A CHEMICAL DEPENDENCY/SUBSTANCEABUSE PROGRAM, SOME INFORMATION MAY BE OMITTED. This clinical summary was aggregated from multiple sources. Caution should be exercised in using it in the provision of clinical care. This summary normalizes information from multiple sources, and as a consequence, information in this document may materially change the coding, format and clinical context of patient data. In addition, data may be omitted in some cases. CLINICAL DECISIONS SHOULD BE BASED ON THE PRIMARY CLINICAL RECORDS. [facility] [employer] [facility]. provides no warranty or guarantee of the accuracy or completeness of information in this document.
--- NOTE | 2025-06-12 07:44 | ED_ITS ---
HPI HPI - General Adult General Chief complaint: Ear Stated complaint: EARS ARE HURTING Time Seen by Provider: 06/12/25 07:34 Source: patient Mode of arrival: walk-in Limitations: no limitations History of Present Illness HPI narrative: 35-year-old female presents to the emergency department for bilateral ear pain. She is complaining of much more pain in the right ear than the left. She states she had a small amount of clear drainage come from her right ear. No sore throat or toothache. She has had this since yesterday. Related Data Home Medications ?Medication ?Instructions ?Recorded ?Confirmed buspirone 10 mg tablet 10 mg PO BID 10/29/23 fluoxetine 40 mg capsule 40 mg PO DAILY 10/29/2310/12 lisinopril 20 mg tablet 20 mg PO DAILY 10/29/2310/12 meloxicam 15 mg tablet 15 mg PO DAILY 10/29/2310/12 paliperidone palmitate 234 mg/1.5 234 mg IM .monthly 1 12/30/22 10/29/23 mL intramuscular syringe (Invega Sustenna) propranolol 60 mg capsule,24 60 mg PO DAILY 10/29/23 1 12/30/22 hr,extended release Previous Rx's ?Medication ?Instructions ?Recorded ibuprofen 800 mg tablet 800 mg PO Q8H PRN pain #20 t abs 06/12/25 hiogusxi-mnlszemob-bjwfnlhgz 3.5 4 drp otic (ear) Q8H 7 days #10 mL 06/12/25 mg/mL-10,000 unit/mL-1 % ear solution Allergies Allergy/AdvReac Type Severity Reaction Status Date / Time hydroxyzine AdvReac Drowsy Verified 06/12/25 06:52 Review of Systems ROS Narrative A ten point review of systems is negative except as noted above. PFSH PFSH Social History Little interest or pleasure in doing things: not at all Feeling down, depressed, or hopeless: not at all Exam Narrative Exam Narrative: Nurses note and vital signs reviewed and patient is not hypoxic. General: The patient appears well and in no apparent distress. Patient is resting comfortably on cart. Skin: Warm, dry, no pallor noted. There is no rash noted. Head: Normocephalic, atraumatic Eye: Normal conjunctiva, no drainage Ears, Nose, Mouth, and Throat: oral mucosa is moist. Nares patent. Both TMs are normal in appearance. There is very minimal swelling in the left ear canal and moderate amount on the right. No foreign bodies. No bleeding present. Cardiovascular: Regular Rate and Rhythm Respiratory: Patient is in no distress, no accessory muscle use, lungs are clear to auscultation, no wheezing, rales or rhonchi Back: non-tender GI: Soft and nontender Musculoskeletal: No joint swelling Neurological: A&O, normal speech Psychiatric: Cooperative Constitutional Vital Signs, click to edit/add: Last Vital Signs Temp 98.0 F 06/12/25 06:47 Pulse 63 06/12/25 06:47 Resp 16 06/12/25 06:47 BP 135/85 06/12/25 06:47 Pulse Ox 99 06/12/25 06:47 O2 Del Method Room Air 06/12/25 06:47 Course Vital Signs Vital signs: Vital Signs Temperature 98.0 F 06/12/25 06:47 Pulse Rate 63 06/12/25 06:47 Respiratory Rate 16 06/12/25 06:47 Blood Pressure 135/85 06/12/25 06:47 Pulse Oximetry 99 06/12/25 06:47 Oxygen Delivery Method Room Air 06/12/25 06:47 Temperature 98.0 F 06/12/25 06:47 Pulse Rate 63 06/12/25 06:47 Respiratory Rate 16 06/12/25 06:47 Blood Pressure 135/85 06/12/25 06:47 Pulse Oximetry 99 06/12/25 06:47 Oxygen Delivery Method Room Air 06/12/25 06:47 Medical Decision Making [facility] Narrative Medical decision making narrative: My clinical impression is that she has otitis media. Treatment diagnosis and follow-up were discussed with the patient. Differential Diagnosis Differential Diagnosis: Otitis media, otitis externa Discharge Plan Discharge Chief Complaint: Ear Clinical Impression: Otitis externa Patient Disposition: Home, Self-Care Time of Disposition Decision: 07:42 Condition: Good Mode of Transportation: Private Vehicle Prescriptions / Home Meds: New sebhaidn-nhqrxtkvx-AU 3.5-10,000-1 mg/mL-unit/mL-% solution 4 drp otic (ear) Q8H 7 Days Qty: 10 0RF Rx Instructions: Use in both ears ibuprofen 800 mg tablet 800 mg PO Q8H PRN (Reason: pain) Qty: 20 0RF No Action buspirone 10 mg tablet 10 mg PO BID fluoxetine 40 mg capsule 40 mg PO DAILY lisinopril 20 mg tablet 20 mg PO DAILY meloxicam 15 mg tablet 15 mg PO DAILY Invega Sustenna 234 mg/1.5 mL syringe 234 mg IM .monthly propranolol 60 mg capsule,extended release 24 hr 60 mg PO DAILY Print Language: Burkinan Instructions: Swimmer's Ear (ED) Additional Instructions: Hold meloxicam while on ibuprofen Referrals: JOHN LUJAN APRN, DIGITAL FORENSICS EXAMINER [Primary Care Provider] - 1 week
== END 2025-06-12 07:55 | disposition home or self-care (01) ==
PROVIDERS: Emergency Provider Emergency Medicine
DX: H60.93 Unspecified otitis externa, bilateral (principal)
CPT/HCPCS: 99283